=== PATIENT | female | born 1945 | race Caucasian/White ===

== ENCOUNTER 2021-03-26 11:55 | Outpatient (REF) | payer MEDICARE, SELFPAY ==
--- NOTE | ~2021-03-26 | XR_ITS ---
EXAMINATION: XR CHEST CLINICAL INFORMATION: Acute respiratory infection COMPARISON: None TECHNIQUE: 2 views of the chest were obtained. FINDINGS: The cardiac and mediastinal contours are normal. The lungs are clear. There is no pleural effusion or pneumothorax. There are degenerative changes of the spine. XR/XR chest 2V IMPRESSION: Unremarkable examination.
[2021-03-26 14:58] LABS: Influenza A PCR NEGATIVE (Negative); Influenza B PCR NEGATIVE (Negative); Resp Syncy Virus RNA Qual PCR NEGATIVE (Negative); SARS COV2 PCR INHOUSE NEGATIVE (Negative)
== END 2021-03-26 11:56 | disposition home or self-care (01) ==
LOC: HO.HMGCX 11:55
PROVIDERS: Physician Assistant Medical; PCP Internal Medicine; Visit Provider Physician Assistant
DX: Z20.822 Contact with and (suspected) exposure to COVID-19 (principal); J06.9 Acute upper respiratory infection, unspecified
CPT/HCPCS: 0241U; 36415; 71046

== ENCOUNTER 2021-04-14 11:43 | Outpatient (REF) | payer MEDICARE, SELFPAY ==
[2021-04-14 12:35] LABS: Influenza A PCR NEGATIVE (Negative); Influenza B PCR NEGATIVE (Negative); Resp Syncy Virus RNA Qual PCR NEGATIVE (Negative); SARS COV2 PCR INHOUSE POSITIVE (Negative)
== END 2021-04-14 11:44 | disposition home or self-care (01) ==
LOC: HO.LNP 11:43
PROVIDERS: Visit Provider Internal Medicine
DX: Z20.822 Contact with and (suspected) exposure to COVID-19 (principal); R43.9 Unspecified disturbances of smell and taste
CPT/HCPCS: 0241U

== ENCOUNTER 2021-09-11 16:44 | Outpatient (REF) | payer MEDICARE, SELFPAY ==
--- NOTE | ~2021-09-11 | XR_ITS ---
EXAMINATION: XR CHEST CLINICAL INFORMATION: Cough. COMPARISON: Chest x-ray 03/26/2021 TECHNIQUE: 2 views of the chest were obtained. FINDINGS: Lungs are clear. No pulmonary vascular congestion. There is no pleural effusion. The heart size is normal. The cardiac and mediastinal contours are normal. There are calcifications of the thoracic aorta. There are multilevel degenerative changes of dorsal spine. XR/XR chest 2V IMPRESSION: Unremarkable examination.
== END 2021-09-11 16:45 | disposition home or self-care (01) ==
LOC: HO.HMGCX 16:44
PROVIDERS: PCP Internal Medicine
DX: R05.9 Cough, unspecified (principal)
CPT/HCPCS: 71046

== ENCOUNTER 2021-11-24 12:50 | Outpatient (REF) | payer MEDICARE, SELFPAY ==
--- NOTE | 2021-11-24 14:23 | PFT_ITS ---
INDICATION: Asthma. SPIROMETRY: FEV1 to FVC of 62% with an FEV1 of 1.58 L, which is 73% predicted, FVC of 2.54 L, which is 88% predicted. There was a significant response to bronchodilators noted. The maximum voluntary ventilation 80% predicted to note, the small airways, [id number] was down to 40% predicted initially as well. LUNG VOLUMES: Total lung capacity 85% predicted with a residual volume of 95% predicted. DIFFUSING CAPACITY: DLCO 55% predicted. COMPARISONS: None to review. INTERPRETATION: There is an obstructive ventilatory defect consistent with moderate COPD. Although, the patient has a history of asthma, an evidence of small airways disease suggesting the possibility of asthma-COPD overlap syndrome. There was a significant response to bronchodilators noted. Maximum voluntary ventilation is within normal limits. Lung volumes also within normal limits. The patient does however have a moderate diffusion impairment. Therefore, emphysema and other parenchymal lung conditions should be considered. Correction for hemoglobin also will be warranted. Clinical correlation warranted. MD DAYTON Kwon/SANDRO / [phone]
== END 2021-11-24 12:51 | disposition home or self-care (01) ==
LOC: HO.RESP 12:50
PROVIDERS: PCP Internal Medicine; Visit Provider Internal Medicine
DX: J45.909 Unspecified asthma, uncomplicated (principal)
CPT/HCPCS: 94060; 94727; 94729

== ENCOUNTER 2021-11-25 08:01 | Outpatient (REF) | payer MEDICARE, SELFPAY ==
[2021-11-25 11:28] LABS: MANUAL DIFF FLAG NO
[2021-11-25 11:36] LABS: Basophils Absolute Auto 0.1 X10*3/uL (0.0-0.2); Basophils Percent Auto 1.4 % (0-2); Eosinophils Absolute Auto 0.5 X10*3/uL (0.0-0.4); Eosinophils Percent Auto 12.2 % (0-4); Hematocrit 40.3 % (37.0-47.0); Hemoglobin 13.2 g/dl (12.0-16.0); Imm Gran Abs Auto 0.01 X10*3/uL (0.00-0.03); Imm Gran Pct Auto 0.3 % (0.0-0.4); Lymphocytes Absolute Auto 1.2 X10*3/uL (1.2-4.9); Mean Corpuscular HGB Conc 32.8 g/dl (31.0-35.0); Mean Corpuscular Volume 91.6 fL (80.0-98.0); Mean Platelet Volume 12.2 fL (9.4-12.3); Monocytes Absolute Auto 0.3 X10*3/uL (0.1-1.2); Monocytes Percent Auto 8.9 % (2-11); Neutrophils Absolute Auto 1.7 x10*3/uL (2.0-8.3); Neutrophils Percent Auto 45.2 % (45-73); Platelet Count 125 X10*3/uL (160-400); Red Cell Distribution Width 13.5 % (11.0-16.0); White Blood Count 3.7 X10*3/uL (4.8-10.8)
[2021-11-25 11:55] LABS: Alanine Aminotransferase 16 U/L (0-31); Albumin Level 4.4 g/dL (3.5-5.0); Alkaline Phosphatase 56 U/L (39-117); Anion Gap 15 (12-20); Aspartate Amino Transferase 18 U/L (5-31); Bilirubin Total 0.6 mg/dL (0.0-1.0); Blood Urea Nitrogen 17 mg/dL (9-16); C Reactive Protein 0.18 mg/dL (< or = 0.50); Calcium 9.3 mg/dL (8.4-10.2); Carbon Dioxide 27 mmol/L (22-29); Chloride 105 mmol/L (96-108); Cholesterol 223 mg/dL; Estimated Glomerular Filt Rate > 60; Glucose Fasting 86 mg/dL (60-99); HDL Cholesterol 57 mg/dL; LDL Cholesterol Calculated 145 mg/dl; Potassium 4.8 mmol/L (3.3-5.1); Sodium 142 mmol/L (135-145); Total Protein 6.8 g/dL (6.5-8.0); Triglycerides 105 mg/dL
[2021-11-25 12:04] LABS: TSH reflex Free T4 1.03 uIU/mL (0.32-4.0); Vitamin D 25-OH Total 48.2 ng/mL (>30)
[2021-11-25 12:17] LABS: Folate 17.7 ng/mL (> or = 4.0); Vitamin B12 657 pg/mL (200-900)
== END 2021-11-25 08:02 | disposition home or self-care (01) ==
LOC: HO.HMGCLDS 08:01
PROVIDERS: PCP Internal Medicine; Visit Provider Internal Medicine
DX: I10 Essential (primary) hypertension (principal); E55.9 Vitamin D deficiency, unspecified
CPT/HCPCS: 36415; 80053; 80061; 82306; 82607; 82746; 84443; 85025; 86140

== ENCOUNTER 2021-12-06 11:18 | Outpatient (REF) | payer MEDICARE, SELFPAY ==
[2021-12-06 12:07] LABS: Leukocytes Stool Qualitative NEGATIVE (NEGATIVE)
[2021-12-06 13:07] LABS: Campylobacter Not Detected (Not Detect.); E. coli EAEC Not Detected (Not Detect.); E. coli EPEC Detected (Not Detect.); E. coli ETEC Not Detected (Not Detect.); E. coli STEC Not Detected (Not Detect.); Plesiomonas shigelloides Not Detected (Not Detect.); Salmonella Not Detected (Not Detect.); Vibrio Not Detected (Not Detect.); Vibrio Cholerae Not Detected (Not Detect.); Yersinia enterocolitica Not Detected (Not Detect.)
[2021-12-06 13:08] LABS: Adenovirus F 40/41 Not Detected (Not Detect.); Astrovirus Not Detected (Not Detect.); Cryptosporidium Not Detected (Not Detect.); Cyclospora cayetanensis Not Detected (Not Detect.); Entamoeba histolytica Not Detected (Not Detect.); Giardia lamblia Not Detected (Not Detect.); Norovirus GI/GII Not Detected (Not Detect.); Rotavirus A Not Detected (Not Detect.); Sapovirus Not Detected (Not Detect.); Shigella sp./EIEC Not Detected (Not Detect.)
== END 2021-12-06 11:19 | disposition home or self-care (01) ==
LOC: HO.LNP 11:18
PROVIDERS: Visit Provider Internal Medicine
DX: R19.7 Diarrhea, unspecified (principal)
CPT/HCPCS: 87507; 89055

== ENCOUNTER 2022-03-16 08:02 | Outpatient (REF) | payer MEDICARE, SELFPAY ==
[2022-03-16 11:45] LABS: Baso%MD 1.5 %; Eos%MD 10.8 %; Hematocrit 39.9 % (37.0-47.0); Hemoglobin 12.8 g/dl (12.0-16.0); IG%MD 0.3 %; Lymph%MD 34.7 %; Mean Corpuscular HGB Conc 32.1 g/dl (31.0-35.0); Mean Corpuscular Hemoglobin 28.9 pg (27.0-33.0); Mean Corpuscular Volume 90.1 fL (80.0-98.0); Mono%MD 11.1 %; Neut%MD 41.6 %; Platelet Count 139 X10*3/uL (160-400); Red Blood Count 4.43 X10*6/uL (4.20-5.50); Red Cell Distribution Width 13.5 % (11.0-16.0); White Blood Count 3.9 X10*3/uL (4.8-10.8)
[2022-03-16 13:21] LABS: Band Neutrophils Percent 3 % (3-5); Basophils Abs Manual 0.1 X10*3/uL (0.0-0.2); Basophils Percent Manual 2 % (0-2); Eosinophils Absolute Manual 0.4 X10*3/uL (0.0-0.4); Eosinophils Percent Manual 10 % (0-4); Lymphocytes Absolute Manual 1.1 X10*3/uL (1.2-4.9); Lymphocytes Percent Manual 29 % (20-40); Monocytes Absolute Manual 0.2 X10*3/uL (0.1-1.2); Monocytes Percent Manual 5 % (2-11); Neutrophils Absolute Manual 2.1 X10*3/uL (2.0-8.3); Neutrophils Percent Manual 51 % (45-73)
[2022-03-16 13:22] LABS: Platelet Estimate NORMAL (NORMAL); Platelet Morphology Comment NORMAL; RBC Morphology NORMAL
== END 2022-03-16 08:03 | disposition home or self-care (01) ==
LOC: HO.HMGCLDS 08:02
PROVIDERS: PCP Internal Medicine; Visit Provider Internal Medicine
DX: D69.6 Thrombocytopenia, unspecified (principal)
CPT/HCPCS: 36415; 85007; 85027

== ENCOUNTER 2022-09-22 08:06 | Outpatient (REF) | payer MEDICARE, SELFPAY ==
[2022-09-22 11:14] LABS: MANUAL DIFF FLAG NO
[2022-09-22 11:35] LABS: Basophils Absolute Auto 0.1 X10*3/uL (0.0-0.2); Basophils Percent Auto 1.2 % (0-2); Eosinophils Absolute Auto 0.5 X10*3/uL (0.0-0.4); Eosinophils Percent Auto 11.2 % (0-4); Hematocrit 40.7 % (37.0-47.0); Hemoglobin 13.2 g/dl (12.0-16.0); Imm Gran Abs Auto 0.01 X10*3/uL (0.00-0.03); Imm Gran Pct Auto 0.2 % (0.0-0.4); Lymphocytes Absolute Auto 1.4 X10*3/uL (1.2-4.9); Lymphocytes Percent Auto 31.9 % (20-40); Mean Corpuscular HGB Conc 32.4 g/dl (31.0-35.0); Mean Corpuscular Hemoglobin 29.2 pg (27.0-33.0); Mean Platelet Volume 11.5 fL (9.4-12.3); Monocytes Absolute Auto 0.3 X10*3/uL (0.1-1.2); Neutrophils Percent Auto 47.5 % (45-73); Platelet Count 139 X10*3/uL (160-400); Red Blood Count 4.52 X10*6/uL (4.20-5.50); Red Cell Distribution Width 13.6 % (11.0-16.0); White Blood Count 4.3 X10*3/uL (4.8-10.8)
[2022-09-22 12:11] LABS: Alanine Aminotransferase 16 U/L (0-31); Albumin Level 4.4 g/dL (3.5-5.0); Alkaline Phosphatase 61 U/L (39-117); Anion Gap 10 (12-20); Aspartate Amino Transferase 18 U/L (5-31); Bilirubin Total 0.6 mg/dL (0.0-1.0); Blood Urea Nitrogen 17 mg/dL (9-16); Calcium 9.8 mg/dL (8.4-10.2); Carbon Dioxide 30 mmol/L (22-29); Chloride 107 mmol/L (96-108); Cholesterol 250 mg/dL; Estimated Glomerular Filt Rate > 60; Glucose Fasting 92 mg/dL (60-99); HDL Cholesterol 57 mg/dL; LDL Cholesterol Calculated 165 mg/dl; Potassium 4.6 mmol/L (3.3-5.1); Sodium 142 mmol/L (135-145); Total Protein 6.9 g/dL (6.5-8.0); Triglycerides 142 mg/dL
[2022-09-22 12:26] LABS: TSH reflex Free T4 1.85 uIU/mL (0.32-4.0)
== END 2022-09-22 08:07 | disposition home or self-care (01) ==
LOC: HO.HMGCLDS 08:06
PROVIDERS: PCP Internal Medicine; Visit Provider Internal Medicine
DX: I10 Essential (primary) hypertension (principal); E78.5 Hyperlipidemia, unspecified
CPT/HCPCS: 36415; 80053; 80061; 84443; 85025

== ENCOUNTER 2023-01-21 13:49 | Outpatient (AMB) | payer MEDICARE, SELFPAY ==
--- NOTE | 2023-01-21 13:53 | MHC.PC.OV ---
Vital Signs 01/21/23 13:56 Height 5 ft 5 in Weight 164 lb BMI 27.3 BP 144/74 H Blood Pressure Location Rt brachial Position Sitting Pulse 87 Pulse Source Pulse Oximeter Pulse Oximetry (%) 96 Oxygen Delivery Method Room Air Intake Visit Reasons: Cough/Congestion 1 week Intake Note: Pt is here today for a sick visit. Pt c/o cough congestion for a week now. Allergies meperidine [From Demerol] Allergy (Mild, Verified 01/21/23 13:58) hives paper tape Allergy (Mild, Uncoded 01/21/23 13:58) Redness of Skin Medication List - Last Reconciled 01/21/23 by Saadia Trotter MD albuterol sulfate 90 mcg/actuation (ProAir HFA) 2 puffs inhalation Q6-8H PRN ascorbate calcium (vitamin C) 500 mg PO DAILY ascorbic acid (vitamin C) ER 500 mg PO DAILY calcium carbonate-vitamin D3 600 mg-10 mcg (400 unit) (Calcium with Vitamin D) 1 tab PO DAILY famotidine 40 mg PO DAILY xtywsprhjei-jxadhhcub-ozdzpvrc 100-62.5-25 mcg (Trelegy Ellipta) 1 inh inhalation DAILY losartan 12.5 mg (1/2 x 25 mg) PO DAILY magnesium chloride PO Tobacco use date assessed: 01/21/23 Fall risk assessment: No Falls in past year Last assessed Fall Risk: 01/21/23 Dental Screening Dental Screen Date: 01/21/23 Did you have a dental visit in the last 12 months?: Yes Did you have a dental problem in the last 6 months where you did not have access to dental care?: No Was dental information given to patient?: Patient has dentist HPI Cough/Congestion 1 week HPI Details Pt presents complaining of sinus congestion postnasal drip productive cough with thick sputum chest tightness. She has been using albuterol inhaler without relief PFSH Medical History (Updated 09/28/22 @ 08:53 by Saadia Trotter MD) Vitamin D deficiency Osteopenia HTN (hypertension) Asthma Rectal prolapse Surgical History (Updated 09/28/22 @ 08:52 by Saadia Trotter MD) Hx of tubal ligation Hx of tonsillectomy Hx of mastectomy Hx of breast reconstruction Family History Mother No problems noted. Father Throat cancer Lung cancer Prostate cancer Social History Housing: House Patient Tobacco Use Status: Former Tobacco user e-Cigarette/Vaping Use: Never Used Current occupational status: retired Cognitive needs: No Hearing needs: No Vision needs: Yes Questionnaire Thrive Questionnaire Date Thrive assessed: 09/28/22 MARCELLO-7 AMB Questionnaire MARCELLO-7 Date MARCELLO - 7 assessed: 09/28/22 Source: Developed by Drs. Eleazar Gutierrez, Hanna Kevin, Chris Bill and colleagues, with an educational brian from [employer]. Review of Systems Const All systems reviewed & are unremarkable except as noted in HPI and below Reports no additional complaints Eyes Reports no additional complaints ENT Reports no additional complaints Card Reports no additional complaints Resp Reports no additional complaints GI Reports no additional complaints Reports no additional complaints Physical exam (Primary Care) Vital Signs: Last Vital Signs Pulse 87 01/21/23 13:56 BP 144/74 H 01/21/23 13:56 Pulse Ox 96 01/21/23 13:56 Oxygen Delivery Method Room Air 01/21/23 13:56 BMI result Body Mass Index 27.3 Tobacco/Smoking Status: Tobacco use Status Tobacco use date assessed 01/21/23 01/21/23 14:02 Patient Tobacco Use Status Former Tobacco user 01/21/23 14:02 e-Cigarette/Vaping Use Never Used 01/21/23 13:54 Thrive Assessment: Date of Thrive Assessment Date Thrive assessed 09/28/22 01/21/23 13:54 Const General: no acute distress [facility] General nose exam: Normal external nose present Mouth: Normal oral and palatal mucosa present Throat: Yes posterior oropharynx abnormal and Yes postnasal drainage Eyes General: appearance normal, both eyes and all related structures Neck Neck: Yes no lymphadenopathy and Yes supple Resp Effort & Inspection: normal respiratory effort Auscultation: rhonchi, wheezes and diminished lung sounds Cardio Rhythm: regular rhythm Heart sounds: S1 normal heart sound present and S2 normal heart sound present Assessment and Plan Assessment & Plan (1) HTN (hypertension): Code(s): I10 - Essential (primary) hypertension Plan: Continue medications (2) Hyperlipidemia: Comment: diet controlled, pt declined statins Code(s): E78.5 - Hyperlipidemia, unspecified (3) COPD (chronic obstructive pulmonary disease): Code(s): J44.9 - Chronic obstructive pulmonary disease, unspecified Plan: Continue Trelegy, Z-Eddi and prednisone taper are prescribed and supportive care discussed with the patient Orders: Orders Complete Blood Count Auto Diff 2 Months E78.5 - Hyperlipidemia, unspecified, I10 - Essential (primary) hypertension, J44.9 - Chronic obstructive pulmonary disease, unspecified Comprehensive [place]. Panel Fast 2 Months E78.5 - Hyperlipidemia, unspecified, I10 - Essential (primary) hypertension, J44.9 - Chronic obstructive pulmonary disease, unspecified Lipid Panel 2 Months E78.5 - Hyperlipidemia, unspecified, I10 - Essential (primary) hypertension, J44.9 - Chronic obstructive pulmonary disease, unspecified Medications: New azithromycin For 250 mg dose pack: take 500 mg today (day 1), then 250 mg for 4 days (days 2-5) PO 6 tabs 0RF prednisone 4 tabl qd for 3 days, then 3 tabl qd for 3 days, then 2 tab qd for 3 days, then 1 qd for 3 days 10 mg PO DAILY 30 tabs 0RF Coding Level of Care Code Est Pt Level 3 (21916) Diagnoses HTN (hypertension) I10 Hyperlipidemia E78.5 COPD (chronic obstructive pulmonary disease) J44.9
[2023-01-21 13:56] VITALS: BP 144/74; PULSE 87; O2SAT 96; BMI 27.3
== END 2023-01-21 14:19 | disposition home or self-care (01) ==
PROVIDERS: PCP Internal Medicine; Visit Provider Internal Medicine
DX: I10 Essential (primary) hypertension (principal); E78.5 Hyperlipidemia, unspecified; J44.9 Chronic obstructive pulmonary disease, unspecified
CPT/HCPCS: 99213

== ENCOUNTER 2023-03-19 08:02 | Outpatient (REF) | payer MEDICARE, SELFPAY ==
[2023-03-19 11:26] LABS: MANUAL DIFF FLAG NO
[2023-03-19 11:38] LABS: Basophils Percent Auto 0.7 % (0-2); Eosinophils Absolute Auto 0.6 X10*3/uL (0.0-0.4); Eosinophils Percent Auto 11.8 % (0-4); Hematocrit 41.3 % (37.0-47.0); Hemoglobin 13.2 g/dl (12.0-16.0); Imm Gran Abs Auto 0.02 X10*3/uL (0.00-0.03); Imm Gran Pct Auto 0.4 % (0.0-0.4); Lymphocytes Absolute Auto 1.1 X10*3/uL (1.2-4.9); Lymphocytes Percent Auto 19.4 % (20-40); Mean Corpuscular Hemoglobin 28.7 pg (27.0-33.0); Mean Corpuscular Volume 89.8 fL (80.0-98.0); Mean Platelet Volume 11.9 fL (9.4-12.3); Monocytes Absolute Auto 0.4 X10*3/uL (0.1-1.2); Monocytes Percent Auto 7.2 % (2-11); Neutrophils Absolute Auto 3.3 x10*3/uL (2.0-8.3); Neutrophils Percent Auto 60.5 % (45-73); Platelet Count 137 X10*3/uL (160-400); Red Cell Distribution Width 14.1 % (11.0-16.0); White Blood Count 5.4 X10*3/uL (4.8-10.8)
[2023-03-19 12:14] LABS: Alanine Aminotransferase 15 U/L (0-31); Albumin Level 4.3 g/dL (3.5-5.0); Alkaline Phosphatase 52 U/L (39-117); Anion Gap 12 (12-20); Aspartate Amino Transferase 19 U/L (5-31); Bilirubin Total 0.4 mg/dL (0.0-1.0); Blood Urea Nitrogen 19 mg/dL (9-16); Calcium 9.8 mg/dL (8.4-10.2); Carbon Dioxide 28 mmol/L (22-29); Chloride 109 mmol/L (96-108); Cholesterol 219 mg/dL (<200); Estimated Glomerular Filt Rate > 60; Glucose Fasting 95 mg/dL (60-99); HDL Cholesterol 54 mg/dL (>40); LDL Cholesterol Calculated 133 mg/dL (<100); Potassium 4.6 mmol/L (3.3-5.1); Sodium 144 mmol/L (135-145); Triglycerides 161 mg/dL (<150)
== END 2023-03-19 08:03 | disposition home or self-care (01) ==
LOC: HO.HMGCLDS 08:02
PROVIDERS: PCP Internal Medicine; Visit Provider Internal Medicine
DX: I10 Essential (primary) hypertension (principal); E78.5 Hyperlipidemia, unspecified; J44.9 Chronic obstructive pulmonary disease, unspecified
CPT/HCPCS: 36415; 80053; 80061; 85025

== ENCOUNTER 2023-03-30 09:41 | Outpatient (AMB) | payer MEDICARE, SELFPAY ==
--- NOTE | 2023-03-30 10:05 | MHC.PC.OV ---
Vital Signs 03/30/23 10:06 Height 5 ft 5 in Weight 165 lb BMI 27.5 BP 120/62 Blood Pressure Location Rt brachial Position Sitting Pulse 69 Pulse Source Pulse Oximeter Pulse Oximetry (%) 98 Oxygen Delivery Method Room Air Intake Visit Reasons: 6 Month follow up HTN Intake Note: Pt is here today for 6 months follow up visit on HTN and labs. Allergies meperidine [From Demerol] Allergy (Mild, Verified 03/30/23 10:08) hives paper tape Allergy (Mild, Uncoded 03/30/23 10:08) Redness of Skin Medication List - Last Reconciled 03/30/23 by Saadia Trotter MD albuterol sulfate 90 mcg/actuation (ProAir HFA) 2 puffs inhalation Q6-8H PRN ascorbate calcium (vitamin C) 500 mg PO DAILY calcium carbonate-vitamin D3 600 mg-10 mcg (400 unit) (Calcium with Vitamin D) 1 tab PO DAILY famotidine 40 mg PO DAILY llyrxjoctho-aajasijqy-grudvxyc 100-62.5-25 mcg (Trelegy Ellipta) 1 inh inhalation DAILY losartan 12.5 mg (1/2 x 25 mg) PO DAILY magnesium chloride PO Tobacco use date assessed: 03/30/23 HPI 6 Month follow up HTN HPI Details Patient presents for the follow-up of COPD hypertension and diet-controlled hyperlipidemia stable on current medications. [facility] Medical History (Updated 03/30/23 @ 10:55 by Saadia Trotter MD) Vitamin D deficiency Osteopenia HTN (hypertension) Asthma Rectal prolapse Surgical History (Updated 09/28/22 @ 08:52 by Saadia Trotter MD) Hx of tubal ligation Hx of tonsillectomy Hx of mastectomy Hx of breast reconstruction Family History Mother No problems noted. Father Throat cancer Lung cancer Prostate cancer Social History Housing: House Patient Tobacco Use Status: Former Tobacco user e-Cigarette/Vaping Use: Never Used Current occupational status: retired Cognitive needs: No Hearing needs: No Vision needs: Yes Questionnaire Thrive Questionnaire Date Thrive assessed: 09/28/22 MARCELLO-7 AMB Questionnaire MARCELLO-7 Date MARCELLO - 7 assessed: 09/28/22 Source: Developed by Drs. Eleazar Gutierrez, Hanna Kevin, Chris Bill and colleagues, with an educational brian from [employer]. Review of Systems Const All systems reviewed & are unremarkable except as noted in HPI and below Reports no additional complaints Eyes Reports no additional complaints ENT Reports no additional complaints Card Reports no additional complaints Resp Reports no additional complaints GI Reports no additional complaints Physical exam (Primary Care) Vital Signs: Last Vital Signs Pulse 69 03/30/23 10:06 BP 120/62 03/30/23 10:06 Pulse Ox 98 03/30/23 10:06 Oxygen Delivery Method Room Air 03/30/23 10:06 BMI result Body Mass Index 27.5 Tobacco/Smoking Status: Tobacco use Status Tobacco use date assessed 03/30/23 03/30/23 10:11 Patient Tobacco Use Status Former Tobacco user 03/30/23 10:11 e-Cigarette/Vaping Use Never Used 03/30/23 10:11 Thrive Assessment: Date of Thrive Assessment Date Thrive assessed 09/28/22 03/30/23 10:11 Const General: no acute distress HENMT Face and sinus: Yes normal facial exam Neck Neck: Yes supple Resp Effort & Inspection: normal respiratory effort Auscultation: clear to auscultation bilaterally Cardio Rhythm: regular rhythm Heart sounds: S1 normal heart sound present and S2 normal heart sound present Assessment and Plan Assessment & Plan (1) COPD (chronic obstructive pulmonary disease): Code(s): J44.9 - Chronic obstructive pulmonary disease, unspecified Plan: cont Trelegy (2) Hyperlipidemia: Comment: diet controlled, pt declined statins Code(s): E78.5 - Hyperlipidemia, unspecified (3) Vitamin D deficiency: Code(s): E55.9 - Vitamin D deficiency, unspecified (4) Thrombocytopenia: Comment: post chemo,monitor Code(s): D69.6 - Thrombocytopenia, unspecified (5) HTN (hypertension): Code(s): I10 - Essential (primary) hypertension Plan: cont losartan Orders: Orders Lipid Panel 6 Months D69.6 - Thrombocytopenia, unspecified, E55.9 - Vitamin D deficiency, unspecified, E78.5 - Hyperlipidemia, unspecified, I10 - Essential (primary) hypertension, J44.9 - Chronic obstructive pulmonary disease, unspecified TSH reflex Free T4 6 Months D69.6 - Thrombocytopenia, unspecified, E55.9 - Vitamin D deficiency, unspecified, E78.5 - Hyperlipidemia, unspecified, I10 - Essential (primary) hypertension, J44.9 - Chronic obstructive pulmonary disease, unspecified Vitamin B12 and Folate 6 Months D69.6 - Thrombocytopenia, unspecified, E55.9 - Vitamin D deficiency, unspecified, E78.5 - Hyperlipidemia, unspecified, I10 - Essential (primary) hypertension, J44.9 - Chronic obstructive pulmonary disease, unspecified Comprehensive [place]. Panel Fast 6 Months D69.6 - Thrombocytopenia, unspecified, E55.9 - Vitamin D deficiency, unspecified, E78.5 - Hyperlipidemia, unspecified, I10 - Essential (primary) hypertension, J44.9 - Chronic obstructive pulmonary disease, unspecified Complete Blood Count Auto Diff 6 Months D69.6 - Thrombocytopenia, unspecified, E55.9 - Vitamin D deficiency, unspecified, E78.5 - Hyperlipidemia, unspecified, I10 - Essential (primary) hypertension, J44.9 - Chronic obstructive pulmonary disease, unspecified Vitamin D 25-OH Total 6 Months D69.6 - Thrombocytopenia, unspecified, E55.9 - Vitamin D deficiency, unspecified, E78.5 - Hyperlipidemia, unspecified, I10 - Essential (primary) hypertension, J44.9 - Chronic obstructive pulmonary disease, unspecified Coding Level of Care Code Est Pt Level 4 (17107) Diagnoses COPD (chronic obstructive pulmonary disease) J44.9 Hyperlipidemia E78.5 Vitamin D deficiency E55.9 Thrombocytopenia D69.6 HTN (hypertension) I10
[2023-03-30 10:06] VITALS: BP 120/62; PULSE 69; O2SAT 98; BMI 27.5
== END 2023-03-30 10:57 | disposition home or self-care (01) ==
LOC: HO.HMGC 09:41
PROVIDERS: PCP Internal Medicine; Visit Provider Internal Medicine
DX: J44.9 Chronic obstructive pulmonary disease, unspecified (principal); E78.5 Hyperlipidemia, unspecified; E55.9 Vitamin D deficiency, unspecified; D69.6 Thrombocytopenia, unspecified; I10 Essential (primary) hypertension
CPT/HCPCS: 99214

== ENCOUNTER 2023-05-14 14:55 | Outpatient (AMB) | payer MEDICARE, SELFPAY ==
--- NOTE | 2023-05-14 14:57 | MHC.OFFWIV ---
Intake Vital Signs 05/14/23 14:59 Height 5 ft 5 in Weight 78.018 kg BMI 28.6 BP 138/60 Pulse 77 Pulse Source Pulse Oximeter Temp 97.7 F Temp Source Oral Pulse Oximetry (%) 97 Oxygen Delivery Method Room Air Intake Visit Reasons: Ep Cough (masked) Intake Note: Pt is here today c/o cough more than 2wks Patient Tobacco Use Status: Former Tobacco user Allergies meperidine [From Demerol] Allergy (Mild, Verified 05/14/23 14:57) hives paper tape Allergy (Mild, Uncoded 05/14/23 14:57) Redness of Skin Do you need a note to return to daycare/school/sports/work: No HPI HPI Comments History of Present Illness Details 70-year-old female history of osteopenia, asthma, hypertension presenting with cough that has been ongoing for the past 2 weeks. Dry cough that is very uncomfortable particularly at night. Denies fevers, chills, chest pain, shortness of breath, nausea, vomiting, headache, vision changes, dizziness weakness. No recent sick contacts. No recent travel. Physical exam benign. Vital signs are stable. Saturating 97% on room air without tachycardia. History and physical exam concerning for bronchitis versus asthma versus viral illness vs copd exacerbation. Unlikely pneumonia, PE, ACS, acute respiratory distress. Plan will discharge on antibiotics, prednisone and steroids. Educated patient on diagnosis and treatment plan, answered all question, patient verbalizes understanding. At this time patient will be discharged home, advised to return with new or worsening symptoms. Educated on worrisome signs and symptoms and when to return. At this time I feel comfortable discharge home. [facility] Medical History Vitamin D deficiency Osteopenia HTN (hypertension) Asthma Rectal prolapse Surgical History Hx of tubal ligation Hx of tonsillectomy Hx of mastectomy Hx of breast reconstruction Family History Mother No problems noted. Father Throat cancer Lung cancer Prostate cancer Social History Housing: House Patient Tobacco Use Status: Former Tobacco user e-Cigarette/Vaping Use: Never Used Current occupational status: retired Cognitive needs: No Hearing needs: No Vision needs: Yes Review of Systems Const All systems reviewed & are unremarkable except as noted in HPI and below Physical Exam Vital Signs: Last Vital Signs Temp 97.7 F 05/14/23 14:59 Pulse 77 05/14/23 14:59 BP 138/60 05/14/23 14:59 Pulse Ox 97 05/14/23 14:59 Oxygen Delivery Method Room Air 05/14/23 14:59 BMI result Body Mass Index 28.6 vss Appearance: Alert.? Oriented X3.? No acute distress.? Head: Normocephalic, atraumatic, no step-offs or deformities Eyes: Pupils equal, round and reactive to light.? CVS: Normal heart rate and rhythm.? Pulses normal.? Respiratory: No respiratory distress.? Breath sounds normal.? Abdomen: Soft and nontender.? Skin: Skin warm and dry.? Normal skin color.? Normal skin turgor.? Extremities: No lower extremity edema.? No calf ttp. 5/5 strength to bilateral upper and lower extremities Neuro: Oriented X 3.? No motor deficit.? No sensory deficit. CN 2-12 intact Assessment & Plan Assessment & Plan (1) Acute bronchitis: Code(s): J20.9 - Acute bronchitis, unspecified Plan Take your medications as prescribed. If you were prescribed antibiotics today, it is important that you take your medication to their entirety, do not skip any doses, do not finish them early. Follow-up with your primary care provider this week. Return to the emergency department with new or worsening symptoms. Such as fevers, chills, chest pain, shortness of breath, nausea, vomiting, dizziness, headache, vision changes, lethargy In case of emergency call 911 Medications: New prednisone 20 mg PO DAILY 5 tabs 0RF 5 days doxycycline hyclate 100 mg PO BID 14 caps 0RF 7 days benzonatate 100 mg PO BID PRN 14 caps 0RF cough albuterol sulfate 90 mcg/actuation 2 puffs inhalation Q6H PRN 6.7 grams 0RF shortness of breath or wheezing Coding Level of Care Code Est Pt Level 3 (72969) Diagnoses Acute bronchitis J20.9
[2023-05-14 14:59] VITALS: BP 138/60; PULSE 77; TEMP 36.5; O2SAT 97; BMI 28.6
== END 2023-05-14 15:29 | disposition home or self-care (01) ==
PROVIDERS: PCP Internal Medicine; Visit Provider Physician Assistant
DX: J20.9 Acute bronchitis, unspecified (principal)
CPT/HCPCS: 99213

== ENCOUNTER 2023-05-28 16:17 | Outpatient (AMB) | payer MEDICARE, SELFPAY ==
[2023-05-28 16:09] VITALS: BP 134/60; PULSE 87; TEMP 36.6; O2SAT 96; BMI 28.3
--- NOTE | 2023-05-28 16:09 | AM.OFFWIN_ITS ---
Intake Vital Signs 05/28/23 16:09 Height 5 ft 5 in Weight 170 lb 2 oz BMI 28.3 BP 134/60 Blood Pressure Location Rt brachial Position Sitting Pulse 87 Pulse Source Pulse Oximeter Temp 98 F Temp Source Oral Pulse Oximetry (%) 96 Oxygen Delivery Method Simple Mask Intake Visit Reasons: EP Deep cough since 05/14/23 Intake Note: Pt is here today for cough, pt states occurred for few weeks Patient Tobacco Use Status: Former Tobacco user Allergies meperidine [From Demerol] Allergy (Mild, Verified 05/28/23 16:09) hives paper tape Allergy (Mild, Uncoded 05/14/23 14:57) Redness of Skin Do you need a note to return to daycare/school/sports/work: No HPI HPI Comments History of Present Illness Details 78 y/o female patient who presents to [facility] in clinic with c/o persistent cough. She was seen and evaluated at [facility] 2 weeks ago and prescribed Prednisone ,Doxy, and Benzonate. Pt never took Doxycycline due to severe Nausea. She has been using her prescribed inhalers with cough relief. She has been using OTC cough medicine with no much relief. Denies fevers, or chills. Denies vomiting but reports nausea. [facility] Medical History Vitamin D deficiency Osteopenia HTN (hypertension) Asthma Rectal prolapse Surgical History Hx of tubal ligation Hx of tonsillectomy Hx of mastectomy Hx of breast reconstruction Family History Mother No problems noted. Father Throat cancer Lung cancer Prostate cancer Social History Housing: House Patient Tobacco Use Status: Former Tobacco user e-Cigarette/Vaping Use: Never Used Current occupational status: retired Cognitive needs: No Hearing needs: No Vision needs: Yes Review of Systems Const All systems reviewed & are unremarkable except as noted in HPI and below Physical Exam Vital Signs: Last Vital Signs Temp 98 F 05/28/23 16:09 Pulse 87 05/28/23 16:09 BP 134/60 05/28/23 16:09 Pulse Ox 96 05/28/23 16:09 Oxygen Delivery Method Simple Mask 05/28/23 16:09 BMI result Body Mass Index 28.3 Const General: no acute distress Nutritional Appearance: overweight Orientation/consciousness: patient oriented x3 HEENT Head: Yes normocephalic Ears: external ears normal and TM's normal bilaterally General nose exam: Normal nasal mucous membranes and turbinates present Face and sinus: Yes sinuses nontender Mouth: moist mucous membranes Throat: Yes posterior oropharynx normal Resp Effort & Inspection: normal respiratory effort and Actively coughing Auscultation: no crackles, no rales, no rhonchi and wheezes scattered wheezes Cardio Rate: regular rate Rhythm: regular rhythm Neuro General: patient oriented x3 Assessment & Plan Assessment & Plan (1) COPD with exacerbation: Code(s): J44.1 - Chronic obstructive pulmonary disease with (acute) exacerbation Plan: - Continue with prescribed inhalers. - D/C Doxycycline - Start taking Augmentin and Z-pack - OTC cough remedies (2) Cough in adult: Code(s): R05.9 - Cough, unspecified Plan: - Warm fluids with honey - Humidifier Medications: New azithromycin 500 mg PO DAILY 3 days 3 tabs 0RF J44.1 - Chronic obstructive pulmonary disease with (acute) exacerbation amoxicillin-pot clavulanate 875-125 mg 1 tab PO BID 5 days 10 tabs 0RF J44.1 - Chronic obstructive pulmonary disease with (acute) exacerbation guaifenesin 200 mg (10 mL) PO Q4H PRN 473 mL 0RF cough R05.9 - Cough, unspecified Coding Level of Care Code Est Pt Level 3 (24930) Diagnoses COPD with exacerbation J44.1 Cough in adult R05.9 Time Spent (min) 15
== END 2023-05-28 16:37 | disposition home or self-care (01) ==
PROVIDERS: PCP Internal Medicine; Visit Provider Nurse Practitioner Family
DX: J44.1 Chronic obstructive pulmonary disease with (acute) exacerbation (principal); R05.9 Cough, unspecified
CPT/HCPCS: 99214

== ENCOUNTER 2023-10-12 08:08 | Outpatient (REF) | payer MEDICARE, SELFPAY ==
[2023-10-12 11:40] LABS: MANUAL DIFF FLAG NO
[2023-10-12 11:53] LABS: Basophils Absolute Auto 0.1 X10*3/uL (0.0-0.2); Basophils Percent Auto 1.3 % (0-2); Eosinophils Absolute Auto 0.4 X10*3/uL (0.0-0.4); Eosinophils Percent Auto 10.4 % (0-4); Hematocrit 37.9 % (37.0-47.0); Hemoglobin 12.6 g/dl (12.0-16.0); Imm Gran Abs Auto 0.01 X10*3/uL (0.00-0.03); Imm Gran Pct Auto 0.3 % (0.0-0.4); Lymphocytes Absolute Auto 1.1 X10*3/uL (1.2-4.9); Lymphocytes Percent Auto 26.7 % (20-40); Mean Corpuscular HGB Conc 33.2 g/dl (31.0-35.0); Mean Corpuscular Hemoglobin 30.1 pg (27.0-33.0); Mean Corpuscular Volume 90.7 fL (80.0-98.0); Mean Platelet Volume 12.1 fL (9.4-12.3); Monocytes Absolute Auto 0.5 X10*3/uL (0.1-1.2); Monocytes Percent Auto 11.5 % (2-11); Neutrophils Percent Auto 49.8 % (45-73); Platelet Count 125 X10*3/uL (160-400); Red Blood Count 4.18 X10*6/uL (4.20-5.50); Red Cell Distribution Width 13.7 % (11.0-16.0); White Blood Count 3.9 X10*3/uL (4.8-10.8)
[2023-10-12 12:16] LABS: Alanine Aminotransferase 16 U/L (0-31); Albumin Level 4.1 g/dL (3.5-5.0); Alkaline Phosphatase 57 U/L (39-117); Anion Gap 12 (12-20); Aspartate Amino Transferase 20 U/L (5-31); Bilirubin Total 0.3 mg/dL (0.0-1.0); Blood Urea Nitrogen 17 mg/dL (9-16); Calcium 9.1 mg/dL (8.4-10.2); Carbon Dioxide 26 mmol/L (22-29); Chloride 108 mmol/L (96-108); Cholesterol 196 mg/dL (<200); Estimated Glomerular Filt Rate > 60; Glucose Fasting 88 mg/dL (60-99); HDL Cholesterol 51 mg/dL (>40); LDL Cholesterol Calculated 132 mg/dL (<100); Potassium 4.5 mmol/L (3.3-5.1); Sodium 141 mmol/L (135-145); Total Protein 6.6 g/dL (6.5-8.0); Triglycerides 69 mg/dL (<150)
[2023-10-12 12:34] LABS: Folate 9.2 ng/mL (> or = 4.0); Vitamin B12 452 pg/mL (200-900)
[2023-10-12 12:40] LABS: TSH reflex Free T4 1.07 uIU/mL (0.32-4.0); Vitamin D 25-OH Total 48.9 ng/mL (>30)
== END 2023-10-12 08:09 | disposition home or self-care (01) ==
LOC: HO.HMGCLDS 08:08
PROVIDERS: PCP Internal Medicine; Visit Provider Internal Medicine
DX: I10 Essential (primary) hypertension (principal); J44.9 Chronic obstructive pulmonary disease, unspecified; E78.5 Hyperlipidemia, unspecified; E55.9 Vitamin D deficiency, unspecified; D69.6 Thrombocytopenia, unspecified
CPT/HCPCS: 36415; 80053; 80061; 82306; 82607; 82746; 84443; 85025

== ENCOUNTER 2023-10-27 11:46 | Outpatient (AMB) | payer MEDICARE, SELFPAY ==
[2023-10-27 12:04] VITALS: BP 122/70; PULSE 63; O2SAT 96; BMI 28.0
--- NOTE | 2023-10-27 12:04 | MHC.PC.OV ---
Vital Signs 10/27/23 12:04 Height 5 ft 5 in Weight 168 lb BMI 28.0 BP 122/70 Blood Pressure Location Rt brachial Position Sitting Pulse 63 Pulse Source Pulse Oximeter Pulse Oximetry (%) 96 Oxygen Delivery Method Room Air Intake Visit Reasons: Annual Intake Note: Pt is here today for PE. Allergies meperidine [From Demerol] Allergy (Mild, Verified 05/28/23 16:09) hives paper tape Allergy (Mild, Uncoded 05/14/23 14:57) Redness of Skin Medication List - Last Reconciled 10/27/23 by Saadia Trotter MD albuterol sulfate 90 mcg/actuation (ProAir HFA) 2 puffs inhalation Q6-8H PRN albuterol sulfate 90 mcg/actuation 2 puffs inhalation Q6H PRN ascorbate calcium (vitamin C) 500 mg PO DAILY calcium carbonate-vitamin D3 600 mg-10 mcg (400 unit) (Calcium with Vitamin D) 1 tab PO DAILY famotidine 40 mg PO DAILY vlamsnyyyxd-uxatfkpri-vttrukez 100-62.5-25 mcg (Trelegy Ellipta) 1 ea inhalation DAILY losartan 12.5 mg (1/2 x 25 mg) PO DAILY magnesium chloride PO montelukast 10 mg PO DAILY Tobacco use date assessed: 10/27/23 Fall risk assessment: No Falls in past year Last assessed Fall Risk: 10/27/23 Dental Screening Dental Screen Date: 10/27/23 Did you have a dental visit in the last 12 months?: Yes Did you have a dental problem in the last 6 months where you did not have access to dental care?: No Was dental information given to patient?: Patient has dentist HPI Annual HPI Details Pt presents for PE. PFSH Medical History Vitamin D deficiency Osteopenia HTN (hypertension) Asthma Rectal prolapse Surgical History Hx of tubal ligation Hx of tonsillectomy Hx of mastectomy Hx of breast reconstruction Family History Mother No problems noted. Father Throat cancer Lung cancer Prostate cancer Social History Housing: House Patient Tobacco Use Status: Never used Tobacco e-Cigarette/Vaping Use: Never Used service: No Current occupational status: retired Cognitive needs: No Hearing needs: No Vision needs: Yes Questionnaire PHQ-9 Over the last 2 weeks, how often have you been bothered by any of the following problems? 1. Little interest or pleasure in doing things: not at all 2. Feeling down, depressed, or hopeless: not at all 3. Trouble falling or staying asleep, or sleeping too much: not at all 4. Feeling tired or having little energy: not at all 5. Poor appetite or overeating: not at all 6. Feeling bad about yourself - or that you are a failure or have let yourself or your family down: not at all 7. Trouble concentrating on things, such as reading the newspaper or watching television: not at all 8. Moving or speaking so slowly that other people could have noticed. Or the opposite - being so fidgety or restless that you have been moving around a lot more than usual: not at all 9. Thoughts that you would be better off or of hurting yourself in some way: not at all Total score: 0 Depression Screening Interpretation: Negative Depression Screening Done: Yes Source: Developed by Drs. Eleazar Gutierrez, Hanna Kevin, Chris Bill and colleagues, with an educational brian from [employer]. Thrive Questionnaire Date Thrive assessed: 10/27/23 I am a: Patient What is your living situation today?: I have a steady place to live Within the past 12 months, did the food you bought not last and you didn't have the money to get more?: Never true Within the past 12 months, did you worry whether your food would run out before you got money to buy more?: Never true Do you have trouble paying for medicines?: No Do you have trouble getting transportation to medical appointments?: No Do you have trouble paying your heating and electricity bill?: No Do you have trouble taking care of your child, family member or friend?: No Do you have trouble with day-to-day activities such as bathing, preparing meals, shopping, managing finances, etc.?: No Are you currently unemployed and looking for a job?: No Are you interested in more education?: No Please select the resources that you would like help with: None THRIVE Score: 0 AUDIT C Alcohol Use Questionnaire (AUDIT-C) 1. How often do you have a drink containing alcohol?: Never 3. How often do you have six or more drinks on one occasion?: Never Total Score: 0 MARCELLO-7 AMB Questionnaire MARCELLO-7 Date MARCELLO - 7 assessed: 10/27/23 Feeling nervous, anxious, or on edge: 0 = Not at all Not being able to stop or control worryin = Not at all Worrying too much about different things: 0 = Not at all Trouble relaxin = Not at all Being so restless that it is hard to sit still: 0 = Not at all Becoming easily annoyed or irritable: 0 = Not at all Feeling afraid as if something awful might happen: 0 = Not at all Total MARCELLO-7 score (0-4 normal; 5-9 mild; 10-14 moderate; 15-21 severe): 0 Source: Developed by Drs. Eleazar Gutierrez, Hanna Kevin, Chris Bill and colleagues, with an educational brian from [employer]. Review of Systems Const All systems reviewed & are unremarkable except as noted in HPI and below Reports no additional complaints Eyes Reports no additional complaints ENT Reports no additional complaints Card Reports no additional complaints Physical exam (Primary Care) Vital Signs: Last Vital Signs Pulse 63 10/27/23 12:04 BP 122/70 10/27/23 12:04 Pulse Ox 96 10/27/23 12:04 Oxygen Delivery Method Room Air 10/27/23 12:04 BMI result Body Mass Index 28.0 Tobacco/Smoking Status: Tobacco use Status Tobacco use date assessed 10/27/23 10/27/23 12:15 Patient Tobacco Use Status Never used Tobacco 10/27/23 12:15 e-Cigarette/Vaping Use Never Used 10/27/23 12:04 PHQ-9: PHQ-9 Score PHQ-9: Total score 0 10/27/23 12:52 Depression Screening Interpretation: Negative Thrive Assessment: Date of Thrive Assessment Date Thrive assessed 10/27/23 10/27/23 12:15 Const General: no acute distress HENMT Head: Yes normal to inspection Eyes General: appearance normal, both eyes and all related structures Neck Neck: Yes no lymphadenopathy and Yes supple Resp Effort & Inspection: normal respiratory effort Auscultation: crackles and wheezes Cardio Rhythm: regular rhythm Heart sounds: S1 normal heart sound present and S2 normal heart sound present GI Inspection: Yes normal to inspection Palpation (GI): Soft to palpation Percussion: Yes normal to percussion Auscultation: normal bowel sounds Assessment and Plan Assessment & Plan (1) Hyperlipidemia: Comment: diet controlled, pt declined statins Code(s): E78.5 - Hyperlipidemia, unspecified Plan: CONTINUE LOW-CHOLESTEROL DIET (2) COPD (chronic obstructive pulmonary disease): Code(s): J44.9 - Chronic obstructive pulmonary disease, unspecified Plan: For overlap in asthma/COPD montelukast will be added, patient will continue Trelegy daily and use albuterol as needed and follow-up in 1 month (3) Colon polyps: Comment: last colonoscopy polyps 2022 4 polyps, recheck in 1 year ,Dr. Savage Code(s): K63.5 - Polyp of colon Plan: Follow-up with GI (4) HTN (hypertension): Code(s): I10 - Essential (primary) hypertension Plan: Continue losartan (5) Asthma: Comment: PFT 12/08 Code(s): J45.909 - Unspecified asthma, uncomplicated (6) Annual physical exam: Code(s): Z00.00 - Encounter for general adult medical examination without abnormal findings Plan: Well-balanced diet regular physical activity discussed with the patient Medications: New montelukast 10 mg PO DAILY 30 tabs 1RF Coding Level of Care Code Est Pt Prev Care >65y(95178) Diagnoses Hyperlipidemia E78.5 COPD (chronic obstructive pulmonary disease) J44.9 Colon polyps K63.5 HTN (hypertension) I10 Asthma J45.909 Annual physical exam Z00.00
== END 2023-10-27 13:09 | disposition home or self-care (01) ==
PROVIDERS: PCP Internal Medicine; Visit Provider Internal Medicine
DX: E78.5 Hyperlipidemia, unspecified (principal); J44.9 Chronic obstructive pulmonary disease, unspecified; K63.5 Polyp of colon; I10 Essential (primary) hypertension; J45.909 Unspecified asthma, uncomplicated; Z00.00 Encounter for general adult medical examination without abnormal findings
CPT/HCPCS: 99397

== ENCOUNTER 2024-04-26 08:01 | Outpatient (REF) | payer MEDICARE, SELFPAY ==
[2024-04-26 09:58] LABS: MANUAL DIFF FLAG NO
[2024-04-26 10:05] LABS: Basophils Absolute Auto 0.1 X10*3/uL (0.0-0.2); Basophils Percent Auto 1.2 % (0-2); Eosinophils Absolute Auto 0.5 X10*3/uL (0.0-0.4); Eosinophils Percent Auto 11.3 % (0-4); Hematocrit 38.9 % (37.0-47.0); Hemoglobin 12.8 g/dl (12.0-16.0); Imm Gran Abs Auto 0.01 X10*3/uL (0.00-0.03); Imm Gran Pct Auto 0.2 % (0.0-0.4); Lymphocytes Absolute Auto 1.3 X10*3/uL (1.2-4.9); Lymphocytes Percent Auto 31.5 % (20-40); Mean Corpuscular HGB Conc 32.9 g/dl (31.0-35.0); Mean Corpuscular Hemoglobin 29.5 pg (27.0-33.0); Mean Corpuscular Volume 89.6 fL (80.0-98.0); Mean Platelet Volume 11.2 fL (9.4-12.3); Monocytes Absolute Auto 0.4 X10*3/uL (0.1-1.2); Monocytes Percent Auto 9.4 % (2-11); Neutrophils Absolute Auto 1.9 x10*3/uL (2.0-8.3); Neutrophils Percent Auto 46.4 % (45-73); Platelet Count 130 X10*3/uL (160-400); Red Blood Count 4.34 X10*6/uL (4.20-5.50); Red Cell Distribution Width 13.3 % (11.0-16.0); White Blood Count 4.1 X10*3/uL (4.8-10.8)
[2024-04-26 10:16] LABS: Alanine Aminotransferase 20 U/L (0-31); Alkaline Phosphatase 55 U/L (39-117); Anion Gap 10 (12-20); Aspartate Amino Transferase 22 U/L (5-31); Bilirubin Total 0.4 mg/dL (0.0-1.0); Blood Urea Nitrogen 15 mg/dL (9-16); Calcium 9.1 mg/dL (8.4-10.2); Carbon Dioxide 28 mmol/L (22-29); Chloride 109 mmol/L (96-108); Cholesterol 228 mg/dL (<200); Estimated Glomerular Filt Rate > 60; Glucose Fasting 93 mg/dL (60-99); HDL Cholesterol 49 mg/dL (>40); LDL Cholesterol Calculated 143 mg/dL (<100); Potassium 4.4 mmol/L (3.3-5.1); Sodium 143 mmol/L (135-145); Total Protein 6.5 g/dL (6.5-8.0); Triglycerides 181 mg/dL (<150)
[2024-04-30 14:59] LABS: Vitamin D 25-OH, D2 <4 ng/mL; Vitamin D 25-OH, D3 35 ng/mL; Vitamin D 25-OH, Total 35 ng/mL (30-100)
== END 2024-04-26 08:02 | disposition home or self-care (01) ==
LOC: HO.HMGCLDS 08:01
PROVIDERS: PCP Internal Medicine; Visit Provider Internal Medicine
DX: Z00.00 Encounter for general adult medical examination without abnormal findings (principal); E55.9 Vitamin D deficiency, unspecified; I10 Essential (primary) hypertension; J45.909 Unspecified asthma, uncomplicated
CPT/HCPCS: 36415; 80053; 80061; 82306; 85025

== ENCOUNTER 2024-05-10 10:04 | Outpatient (AMB) | payer MEDICARE, SELFPAY ==
[2024-05-10 10:21] VITALS: BP 120/74; PULSE 57; O2SAT 97; BMI 28.5
--- NOTE | 2024-05-10 10:21 | MHC.PC.OV ---
Vital Signs 05/10/24 10:21 Height 5 ft 5 in Weight 171 lb BMI 28.5 BP 120/74 Blood Pressure Location Rt brachial Position Sitting Pulse 57 Pulse Source Pulse Oximeter Pulse Oximetry (%) 97 Oxygen Delivery Method Room Air Intake Visit Reasons: Follow up Intake Note: Pt is here today for a follow up visit. Allergies meperidine [From Demerol] Allergy (Mild, Verified 05/10/24 10:33) hives paper tape Allergy (Mild, Uncoded 05/10/24 10:33) Redness of Skin Medication List - Last Reconciled 05/10/24 by Saadia Trotter MD albuterol sulfate 90 mcg/actuation (ProAir HFA) 2 puffs inhalation Q6-8H PRN albuterol sulfate 90 mcg/actuation 2 puffs inhalation Q6H PRN ascorbate calcium (vitamin C) 500 mg PO DAILY calcium carbonate-vitamin D3 600 mg-10 mcg (400 unit) (Calcium with Vitamin D) 1 tab PO DAILY famotidine 40 mg PO DAILY qrgwgbqhqem-ifncfnyuz-udawhcbn 100-62.5-25 mcg (Trelegy Ellipta) 1 ea inhalation DAILY losartan 12.5 mg (1/2 x 25 mg) PO DAILY magnesium chloride PO Tobacco use date assessed: 05/10/24 Fall risk assessment: No Falls in past year Last assessed Fall Risk: 05/10/24 Dental Screening Dental Screen Date: 05/10/24 Did you have a dental visit in the last 12 months?: Yes Did you have a dental problem in the last 6 months where you did not have access to dental care?: No Was dental information given to patient?: Patient has dentist HPI Follow up HPI Details Patient presents for the follow-up of chronic asthma/COPD and hypertension controlled on current medications. [facility] Medical History Vitamin D deficiency Osteopenia HTN (hypertension) Asthma Rectal prolapse Surgical History Hx of tubal ligation Hx of tonsillectomy Hx of mastectomy Hx of breast reconstruction Family History Mother No problems noted. Father Throat cancer Lung cancer Prostate cancer Social History Housing: House Patient Tobacco Use Status: Never used Tobacco e-Cigarette/Vaping Use: Never Used service: No Current occupational status: retired Cognitive needs: No Hearing needs: No Vision needs: Yes Questionnaire PHQ-9 Over the last 2 weeks, how often have you been bothered by any of the following problems? 1. Little interest or pleasure in doing things: not at all 2. Feeling down, depressed, or hopeless: not at all 3. Trouble falling or staying asleep, or sleeping too much: not at all 4. Feeling tired or having little energy: not at all 5. Poor appetite or overeating: not at all 6. Feeling bad about yourself - or that you are a failure or have let yourself or your family down: not at all 7. Trouble concentrating on things, such as reading the newspaper or watching television: not at all 8. Moving or speaking so slowly that other people could have noticed. Or the opposite - being so fidgety or restless that you have been moving around a lot more than usual: not at all 9. Thoughts that you would be better off or of hurting yourself in some way: not at all Total score: 0 Depression Screening Interpretation: Negative Depression Screening Done: Yes 47967 - PHQ-9 Billing: Yes Source: Developed by Drs. Eleazar Gutierrez, Hanna Kevin, Chris Bill and colleagues, with an educational brian from [employer]. Thrive Questionnaire Date Thrive assessed: 05/10/24 I am a: Patient What is your living situation today?: I have a steady place to live Within the past 12 months, did the food you bought not last and you didn't have the money to get more?: Never true Within the past 12 months, did you worry whether your food would run out before you got money to buy more?: Never true Do you have trouble paying for medicines?: No Do you have trouble getting transportation to medical appointments?: No Do you have trouble paying your heating and electricity bill?: No Do you have trouble taking care of your child, family member or friend?: No Do you have trouble with day-to-day activities such as bathing, preparing meals, shopping, managing finances, etc.?: No Are you currently unemployed and looking for a job?: No Are you interested in more education?: No Please select the resources that you would like help with: None Currently or been in a relationship where the following occur: No concerns reported THRIVE Score: 0 AUDIT C Alcohol Use Questionnaire (AUDIT-C) 1. How often do you have a drink containing alcohol?: 2-4 times a month 2. How many drinks containing alcohol do you have on a typical day when you are drinking?: 1 or 2 3. How often do you have six or more drinks on one occasion?: Never Total Score: 2 MARCELLO-7 AMB Questionnaire MARCELLO-7 Date MARCELLO - 7 assessed: 05/10/24 Feeling nervous, anxious, or on edge: 0 = Not at all Not being able to stop or control worryin = Not at all Worrying too much about different things: 0 = Not at all Trouble relaxin = Not at all Being so restless that it is hard to sit still: 0 = Not at all Becoming easily annoyed or irritable: 0 = Not at all Feeling afraid as if something awful might happen: 0 = Not at all Total MARCELLO-7 score (0-4 normal; 5-9 mild; 10-14 moderate; 15-21 severe): 0 Source: Developed by Drs. Eleazar Gutierrez, Hanna Kevin, Chris Bill and colleagues, with an educational brian from [employer]. MARCELLO-7 Assessment Billing MARCELLO-7 Assessment Tool: MARCELLO-7 Assessment 89866 Review of Systems Const All systems reviewed & are unremarkable except as noted in HPI and below ENT Reports no additional complaints Card Reports no additional complaints Resp Reports no additional complaints GI Reports no additional complaints Reports no additional complaints Physical exam (Primary Care) Vital Signs: Last Vital Signs Pulse 57 05/10/24 10:21 BP 120/74 05/10/24 10:21 Pulse Ox 97 05/10/24 10:21 Oxygen Delivery Method Room Air 05/10/24 10:21 BMI result Body Mass Index 28.5 Tobacco/Smoking Status: Tobacco use Status Tobacco use date assessed 05/10/24 05/10/24 10:34 Patient Tobacco Use Status Never used Tobacco 05/10/24 10:25 e-Cigarette/Vaping Use Never Used 05/10/24 10:25 PHQ-9: PHQ-9 Score PHQ-9: Total score 0 05/10/24 10:36 Depression Screening Interpretation: Negative Thrive Assessment: Date of Thrive Assessment Date Thrive assessed 05/10/24 05/10/24 10:36 Currently or been in a relationship where the following occur: No concerns reported Const General: no acute distress HENMT Head: Yes normal to inspection Throat: Yes posterior oropharynx normal Eyes General: appearance normal, both eyes and all related structures Neck Neck: Yes supple Resp Effort & Inspection: normal respiratory effort Auscultation: clear to auscultation bilaterally Cardio Rhythm: regular rhythm Heart sounds: S1 normal heart sound present and S2 normal heart sound present Coding Level of Care Code Est Pt Level 4 (69456) Diagnoses HTN (hypertension) I10 Vitamin D deficiency E55.9 Hyperlipidemia E78.5 COPD (chronic obstructive pulmonary disease) J44.9 Additional Codes MARCELLO-7 Assessment Billing - MARCELLO-7 Assessment Tool: MARCELLO-7 Assessment 57639 ([id number]) PHQ-9 - 89525 - PHQ-9 Billing: Yes ([id number]) Assessment & Plan Assessment & Plan (1) HTN (hypertension): Code(s): I10 - Essential (primary) hypertension Category: Medical Plan: Continue losartan (2) Vitamin D deficiency: Code(s): E55.9 - Vitamin D deficiency, unspecified Category: Medical Plan: Continue vitamin-D supplement (3) Hyperlipidemia: Comment: diet controlled, pt declined statins Code(s): E78.5 - Hyperlipidemia, unspecified Category: Medical Plan: Continue low-cholesterol diet, increase physical activity (4) COPD (chronic obstructive pulmonary disease): Code(s): J44.9 - Chronic obstructive pulmonary disease, unspecified Category: Medical Plan: Continue Trelegy , return in 6 months for physical with a fasting labs before Orders: Orders Lipid Panel 6 Months E55.9 - Vitamin D deficiency, unspecified, E78.5 - Hyperlipidemia, unspecified, I10 - Essential (primary) hypertension, J44.9 - Chronic obstructive pulmonary disease, unspecified Comprehensive Dickinson. Panel Fast 6 Months E55.9 - Vitamin D deficiency, unspecified, E78.5 - Hyperlipidemia, unspecified, I10 - Essential (primary) hypertension, J44.9 - Chronic obstructive pulmonary disease, unspecified Complete Blood Count Auto Diff 6 Months E55.9 - Vitamin D deficiency, unspecified, E78.5 - Hyperlipidemia, unspecified, I10 - Essential (primary) hypertension, J44.9 - Chronic obstructive pulmonary disease, unspecified Vitamin D 25-OH Total 6 Months E55.9 - Vitamin D deficiency, unspecified, E78.5 - Hyperlipidemia, unspecified, I10 - Essential (primary) hypertension, J44.9 - Chronic obstructive pulmonary disease, unspecified Medications: Refilled famotidine 40 mg PO DAILY 90 tabs 3RF gsisiisxkaw-uorpdmngb-iqebtgmw 100-62.5-25 mcg (Trelegy Ellipta) 1 ea inhalation DAILY 180 ea 3RF
--- OUTSIDE RECORDS SUMMARY | 2024-05-10 11:02 | XMS_ITS | Clinical Summary ---
Author Organization [facility] Address [address] [place] [address] Care Team Providers Care Pi/Senior Research Associate Name Role Phone Unavailable Primary Care Provider Unavailabl e Allergies Active Allergy Reactions Criticality Noted Date Comments Demerol 08/04/2017 hives Medications Budesonide-Form oterol Fumarate (SYMBICORT) 80-4.5 MCG/ACT Aerosol None Entered Active ALBUTEROL SULFATE (PROAIR HFA) 108 (90 BASE) MCG/ACT Aero Soln None Entered Active Famotidine (PEPCID) 20 MG Tab 1 TABLET TWICE DAILY Active Active Problems No known active problems Social History Tobacco Use Types Packs/Day Years Used Date Smoking Tobacco: Former Smokeless Tobacco: Never Comments No Sex and Gender Information Value Date Recorded Sex Assigned at Not on file Legal Sex Female 10:16 AM EDT Gender Identity Not on file Sexual Orientation Not on file Last Filed Vital Signs Vital Sign Reading Time Taken Comments Blood Pressure 133/75 08/04/2017 10:22 AM EDT Pulse 68 08/04/2017 10:53 AM EDT Temperature 36.7 ??C (98.1 ??F) 08/04/2017 10:22 AM E DT Respiratory Rate 18 08/04/2017 10:53 AM EDT Oxygen Saturation 97% 08/04/2017 10:53 AM EDT Inhaled Oxygen Concentration - - Weight - - Height - - Body Mass Index - - Plan of Treatment Health Maintenance Due Date Last Done Comments Hepatitis C Screening 1945 DTaP/Tdap/Td (1 - Tdap) 1963 Pneumococcal 50+ years (1 of 1 - PCV) 1995 Zoster (Shingrix) (1 of 2) 1995 Bone Density 2010 RSV (1 - 1-dose 75+ series) 2020 COVID-19 Vaccine (2023-2 5 season) 2023 Influenza (#1) 2023 HPV Vaccine Aged Out No longer eligi ble based on patient's age to complete this topic Hep A Aged Out No longer eligi ble based on patient's age to complete this topic Hep B Aged Out No longer eligi ble based on patient's age to complete this topic Hib Aged Out No longer eligi ble based on patient's age to complete this topic Mammogram/Breast Imaging Discontinued Meningococcal ACWY Aged Out No longer eligible based on patient's age to complete this topic Pap Smear Discontinued Zoster (Zostavax) Discontinued Insurance [employer] FEE FOR SERVICE MEDICARE
== END 2024-05-10 11:17 | disposition home or self-care (01) ==
PROVIDERS: PCP Internal Medicine; Visit Provider Internal Medicine
DX: I10 Essential (primary) hypertension (principal); E55.9 Vitamin D deficiency, unspecified; E78.5 Hyperlipidemia, unspecified; J44.9 Chronic obstructive pulmonary disease, unspecified

== ENCOUNTER → 2024-05-10 10:04 | Outpatient (BNVA) | payer MEDICARE, SELFPAY | PROVIDERS: PCP Internal Medicine; Visit Provider Internal Medicine | DX: I10 Essential (primary) hypertension (principal); E55.9 Vitamin D deficiency, unspecified; E78.5 Hyperlipidemia, unspecified; J44.9 Chronic obstructive pulmonary disease, unspecified | CPT/HCPCS: 96127; 99212 ==

== ENCOUNTER 2024-06-27 12:02 | Outpatient (AMB) | payer MEDICARE, SELFPAY ==
--- NOTE | 2024-06-27 12:37 | A.OFFPC_ITS ---
Vital Signs 06/27/24 12:41 Height 5 ft 5 in Weight 169 lb BMI 28.1 BP 122/64 Blood Pressure Location Rt brachial Position Sitting Respiration 18 Pulse 80 Pulse Source Pulse Oximeter Temp 98.0 F Temp Source Oral Pulse Oximetry (%) 97 Oxygen Delivery Method Room Air Intake Visit Reasons: Follow up and referral Intake Note: Pt is here today for a follow up visit after being sick and being at Urgent care. Pt states that she is raspy voice. Allergies meperidine [From Demerol] Allergy (Mild, Verified 06/27/24 12:47) hives paper tape Allergy (Mild, Uncoded 06/27/24 12:47) Redness of Skin Medication List - Last Reconciled 06/27/24 by Saadia Trotter MD albuterol sulfate 90 mcg/actuation 2 puffs inhalation Q6H PRN albuterol sulfate 90 mcg/actuation 2 puffs inhalation Q6-8H PRN ascorbate calcium (vitamin C) 500 mg PO DAILY calcium carbonate-vitamin D3 600 mg-10 mcg (400 unit) (Calcium with Vitamin D) 1 tab PO DAILY famotidine 40 mg PO DAILY xriwnxipacm-toernxawm-qsnsrweb 100-62.5-25 mcg (Trelegy Ellipta) 1 ea inhalation DAILY losartan 12.5 mg (1/2 x 25 mg) PO DAILY magnesium chloride PO Trelegy Ellipta 200-62.5-25 mcg (likhspnpxvd-ywuwiqmrf-mksitrfa) 1 inh inhalation DAILY NS Tobacco use date assessed: 06/27/24 Fall risk assessment: No Falls in past year Last assessed Fall Risk: 06/27/24 Dental Screening Dental Screen Date: 05/10/24 HPI Follow up and referral HPI Details Patient presents for the follow-up of COPD and hypertension. She had an episode of upper respiratory infection was treated with a prednisone taper followed by a course of antibiotic. Patient reports persistent nonproductive cough and some dyspnea on exertion. She has been using Trelegy regularly and albuterol as needed only. Patient denies sputum production PND orthopnea chest pain palpitations fever or chills. [facility] Medical History (Updated 06/27/24 @ 15:54 by Saadia Trotter MD) Vitamin D deficiency Osteopenia HTN (hypertension) Rectal prolapse Surgical History Hx of tubal ligation Hx of tonsillectomy Hx of mastectomy Hx of breast reconstruction Family History Mother No problems noted. Father Throat cancer Lung cancer Prostate cancer Social History Housing: House Patient Tobacco Use Status: Never used Tobacco e-Cigarette/Vaping Use: Never Used service: No Current occupational status: retired Cognitive needs: No Hearing needs: No Vision needs: Yes Questionnaire Thrive Questionnaire Date Thrive assessed: 05/10/24 I am a: Patient What is your living situation today?: I have a steady place to live Within the past 12 months, did the food you bought not last and you didn't have the money to get more?: Never true Within the past 12 months, did you worry whether your food would run out before you got money to buy more?: Never true Do you have trouble paying for medicines?: No Do you have trouble getting transportation to medical appointments?: No Do you have trouble paying your heating and electricity bill?: No Do you have trouble taking care of your child, family member or friend?: No Do you have trouble with day-to-day activities such as bathing, preparing meals, shopping, managing finances, etc.?: No Are you currently unemployed and looking for a job?: No Are you interested in more education?: No Please select the resources that you would like help with: None Currently or been in a relationship where the following occur: No concerns reported THRIVE Score: 0 MARCELLO-7 AMB Questionnaire MARCELLO-7 Date MARCELLO - 7 assessed: 05/10/24 Source: Developed by Drs. Eleazar Gutierrez, Hanna Kevin, Chris Bill and colleagues, with an educational brian from [employer]. Review of Systems Const All systems reviewed & are unremarkable except as noted in HPI and below Eyes Reports no additional complaints ENT Reports no additional complaints Card Reports no additional complaints Resp Reports no additional complaints GI Reports no additional complaints Reports no additional complaints Physical exam (Primary Care) Vital Signs: Last Vital Signs Temp 98.0 F 06/27/24 12:41 Pulse 80 06/27/24 12:41 Resp 18 06/27/24 12:41 BP 122/64 06/27/24 12:41 Pulse Ox 97 06/27/24 12:41 Oxygen Delivery Method Room Air 06/27/24 12:41 BMI result Body Mass Index 28.1 Tobacco/Smoking Status: Tobacco use Status Tobacco use date assessed 06/27/24 06/27/24 12:48 Patient Tobacco Use Status Never used Tobacco 06/27/24 12:37 e-Cigarette/Vaping Use Never Used 06/27/24 12:37 Thrive Assessment: Date of Thrive Assessment Date Thrive assessed 05/10/24 06/27/24 12:37 Currently or been in a relationship where the following occur: No concerns reported Const General: no acute distress HENMT Head: Yes normal to inspection Face and sinus: Yes normal facial exam Eyes General: appearance normal, both eyes and all related structures Neck Neck: Yes no lymphadenopathy and Yes supple Resp Effort & Inspection: normal respiratory effort Auscultation: wheezes and diminished lung sounds Cardio Rhythm: regular rhythm Heart sounds: S1 normal heart sound present and S2 normal heart sound present Coding Level of Care Code Est Pt Level 4 (50680) Diagnoses COPD (chronic obstructive pulmonary disease) J44.9 HTN (hypertension) I10 Assessment & Plan Assessment & Plan (1) COPD (chronic obstructive pulmonary disease): Code(s): J44.9 - Chronic obstructive pulmonary disease, unspecified Category: Medical Plan: Increase Trelegy to 200 mcg and use albuterol p.r.n.. Follow-up in 1 week. Patient declined taking prednisone taper (2) HTN (hypertension): Code(s): I10 - Essential (primary) hypertension Category: Medical Plan: Continue losartan Medications: New Trelegy Ellipta 200-62.5-25 mcg (rxyohaumqgp-flbaxtabb-dcebjxqw) 1 inh inhalation DAILY 180 ea 3RF NS Trelegy Ellipta 200-62.5-25 mcg (pdcatoppbvk-papzflpzc-dypetnvc) 1 inh inhalation DAILY 60 ea 3RF NS On Hold wsvfphsntzs-rztodkprv-jcwvpsng 100-62.5-25 mcg (Trelegy Ellipta) Hold Comment: Doctor's Order 1 ea inhalation DAILY 180 ea 3RF
[2024-06-27 12:41] VITALS: BP 122/64; PULSE 80; RESP 18; TEMP 36.7; O2SAT 97; BMI 28.1
--- OUTSIDE RECORDS SUMMARY | 2024-06-27 14:46 | XMS_ITS | Encounter Summary ---
Author Organization [facility] Address [address] [place] [address] Care Team Providers Care Practice Advisor Name Role Phone Community, Pcp Primary Care Provider Rachael Palmer MD Primary Care Provider Verenice Fajardo MD Primary Care Provider Unavail noe [facility], Pcp Primary Care Provider Yanci emery Encounter Details Date Type Department Care Team Description 02/12/2016 Release of Information Medical Records [address] [place] [address] Abstract, Provider Social History Tobacco Use Types Packs/Day Years Used Date Smoking Tobacco: Former Smokeless Tobacco: Former Quit: 07/02/1964 Alcohol Use Standard Drinks/Week Comments Not Asked 0 (1 standard drink = 0.6 oz pur e alcohol) Sex Assigned at Date Recorded Not on file documented as of this encounter Plan of Treatment Not on file documented as of this encounter Visit Diagnoses Not on filedocumented in this encounter Care Teams Practice Advisor Relationship Specialty Start Date End Date Community, Pcp PCP - General Internal Medicine 02/03/16 02/23/18 Rachael Horton MD PCP - General Internal Medicine 02/24/18 07/14/18 Verenice Rose MD PCP - General Internal Medicine 07/15/18 05/20/21 [facility], Pcp PCP - General Internal Medicine 05/21/21 documented as of this encounter
--- OUTSIDE RECORDS SUMMARY | 2024-06-27 14:46 | XMS_ITS | Encounter Summary ---
Author Organization [facility] Address [facility] [place] [address] Care Team Providers Care Showplace Manager Name Role Phone Verenice Rose MD Primary Care Provider Unavail able [facility], Pcp Primary Care Provider Unavailabl e Encounter Details Date Type Department Care Team Description 09/07/2018 Release of Information Medical Records [address] [place] [id number] Abstract, Provider Social History Tobacco Use Types Packs/Day Years Used Date Smoking Tobacco: Former Smokeless Tobacco: Former Quit: 07/02/1964 Comments:3 years as a teenag er Alcohol Use Standard Drinks/Week Comments No 0 (1 standard drink = 0.6 oz pur e alcohol) Sex Assigned at Date Recorded Not on file documented as of this encounter Plan of Treatment Not on file documented as of this encounter Visit Diagnoses Not on filedocumented in this encounter Care Teams Showplace Manager Relationship Specialty Start Date End Date Verenice Rose MD PCP - General Internal Medicine 07/15/18 05/20/21 [facility], Pcp PCP - General Internal Medicine 05/21/21 documented as of this encounter
--- OUTSIDE RECORDS SUMMARY | 2024-06-27 14:46 | XMS_ITS | Encounter Summary ---
Author Organization [facility] Address [facility] [place] [address] Care Team Providers Care Testing And Regulating Technician Name Role Phone Verenice Rose MD Primary Care Provider [facility], Pcp Primary Care Provider Unavailabl e Reason for Visit * Reason Onset Date Comments APPOINTMENT 05/08/2019 Encounter Details Date Type Department Care Team Description 05/08/2019 Telephone Adult Medicine [address] [address] Verenice Rose MD APPOINTMENT Social History Tobacco Use Types Packs/Day Years Used Date Smoking Tobacco: Former Smokeless Tobacco: Former Quit: 07/02/1964 Comments:3 years as a teenag er Alcohol Use Standard Drinks/Week Comments No 0 (1 standard drink = 0.6 oz pur e alcohol) Sex Assigned at Date Recorded Not on file documented as of this encounter Miscellaneous Notes * Telephone Encounter - Kira Anderson R.N. - 05/08/2019 11:46 AM EST Pt needs f/u on or around 08/03 with PCP for BP f/u If pt calls back please schedule I left a message for the patient to return my call. * Telephone Encounter - Verenice Rose MD - 05/08/2019 11:42 AM EST Would like to see her in 3 months * Telephone Encounter - Kira Anderson R.N. - 05/08/2019 11:25 AM EST Pt asking when she needs to be seen for BP med f/u, she was seen but has a 6 mo f/u scheduled in june. Does she need to be seen then or can she wait the 6 months from last visit ( September ) ? * Telephone Encounter - Yoon Corea - 05/08/2019 11:07 AM EST Patient is returning call * Telephone Encounter - Kira Anderson R.N. - 05/08/2019 9:42 AM EST [phone] (home) I left a message for the patient to return my call. Pt was seen last week with headache S/p craniotomy and went to [place] for ct scan The appointment in june is a 6 mo f/u and med review was made back in December , can be cancelledand rescheduled sooner as f/u to [place] visit * Telephone Encounter - Demetria Hilton M.A. - 05/08/2019 9:29 AM EST Pt is scheduled to see pcp 07/03/2019 and needs to reschedule. No available slots please advise documented in this encounter Plan of Treatment Not on file documented as of this encounter Visit Diagnoses Not on filedocumented in this encounter Care Teams Testing And Regulating Technician Relationship Specialty Start Date End Date Verenice Rose MD PCP - General Internal Medicine 07/15/18 05/20/21 [facility], Patria PCP - General Internal Medicine 05/21/21 documented as of this encounter
--- OUTSIDE RECORDS SUMMARY | 2024-06-27 14:46 | XMS_ITS | Encounter Summary ---
Author Organization [facility] Address [address] [place] [address] Care Team Providers Care Filament Cutter Name Role Phone Verenice Rose MD Primary Care Provider [facility] Pcp Primary Care Provider Unavailabl e Reason for Visit * Reason Onset Date Comments refill request 12/31/2019 Encounter Details Date Type Department Care Team Description 12/31/2019 Refill Adult Urgent Care - [address] [address] Verenice Rose MD refill request Social History Tobacco Use Types Packs/Day Years Used Date Smoking Tobacco: Former Smokeless Tobacco: Former Quit: 07/02/1964 Comments:3 years as a teenag er Alcohol Use Standard Drinks/Week Comments No 0 (1 standard drink = 0.6 oz pur e alcohol) Sex Assigned at Date Recorded Not on file documented as of this encounter Miscellaneous Notes * Telephone Encounter - Ken Mallory - 12/31/2019 2:45 PM EDT Patient would like script to be: E-PRESCRIBED/FAXED TO PHARMACY WHEN WAS THE PATIENT'S LAST APPOINTMENT IN ADULT MEDICINE? 12/11/2019 WHEN WAS THE LAST TIME THE PATIENT SAW THEIR PCP? 06/13/2019 Does patient have an upcoming appointment? No-patient refused appointment, will call back to book appointment (THE MEDICATION REQUESTED IS ON THE MED LIST ABOVE) All of the medications requested were on the CURRENT MEDS list Did you check the Pharmacy information above?: YES Patient wants: 90 -day supply Is this a mail order prescription request ? NO If the refill is from a FAXED refill request what is the RX # listed on the fax? N/A Patients current insurance carrier is: Payor: [facility]/MEDICARE PPO / Plan: [facility] MDCR-ADV PPO $20/$40 [place] / Product Type: MEDICARE [id number] documented in this encounter Plan of Treatment Not on file documented as of this encounter Visit Diagnoses Not on filedocumented in this encounter Care Teams Filament Cutter Relationship Specialty Start Date End Date Verenice Rose MD PCP - General Internal Medicine 07/15/18 [facility] 05/21/21 documented as of this encounter
--- OUTSIDE RECORDS SUMMARY | 2024-06-27 14:46 | XMS_ITS | Encounter Summary ---
Author Organization [facility] Address [address] [place] [address] Care Team Providers Care Aerotriangulation Specialist Name Role Phone Verenice Rose MD Primary Care Provider [facility], Pcp Primary Care Provider Unavailabl e Reason for Visit * Reason Onset Date Comments refill request 09/02/2018 Encounter Details Date Type Department Care Team Description 09/02/2018 Refill Adult Medicine [address] [address] Verenice Rose MD refill request Social History Tobacco Use Types Packs/Day Years Used Date Smoking Tobacco: Former Smokeless Tobacco: Former Quit: 07/02/1964 Alcohol Use Standard Drinks/Week Comments Not Asked 0 (1 standard drink = 0.6 oz pur e alcohol) Sex Assigned at Date Recorded Not on file documented as of this encounter Miscellaneous Notes * Telephone Encounter - Demetria Hilton M.A. - 09/11/2018 9:01 AM EDT No results found for: NA, K, CO2, CL, BUN, CREAT, GLU, CA, GFR Last ov with Elinor Laird 09/05/18 * Telephone Encounter - Dillon Hardy - 09/10/2018 8:32 AM EDT Patient would like script to be: E-PRESCRIBED/FAXED TO PHARMACY WHEN WAS THE PATIENT'S LAST APPOINTMENT IN ADULT MEDICINE? 09/05/18 WHEN WAS THE LAST TIME THE PATIENT SAW THEIR PCP? New patient Does patient have an upcoming appointment? Yes 12/23/18 Needs a [facility] script [facility]. Has a refill but a new script required with Dr Rose's name. Patient needs this [place] 10 [place]. (THE MEDICATION REQUESTED IS ON THE MED LIST ABOVE) All of the medications requested were on the CURRENT MEDS list Did you check the Pharmacy information above?: YES Patient wants: 90 -day supply Is this a mail order prescription request ? YES If the refill is from a FAXED refill request what is the RX # listed on the fax? N/A Patients current insurance carrier is: Payor: [facility]/MEDICARE PPO / Plan: [facility] MDCR-ADV PPO $20/$40 [place] / Product Type: MEDICARE [id number] * Telephone Encounter - Angelia Tamayo - 09/02/2018 10:26 AM EDT documented in this encounter Plan of Treatment Not on file documented as of this encounter Visit Diagnoses Not on filedocumented in this encounter Care Teams Aerotriangulation Specialist Relationship Specialty Start Date End Date Verenice Rose MD PCP - General Internal Medicine 07/15/18 05/20/21 Patria Alvarado PCP - General Internal Medicine 05/21/21 documented as of this encounter
--- OUTSIDE RECORDS SUMMARY | 2024-06-27 14:46 | XMS_ITS | Encounter Summary ---
Author Organization [facility] Address [address] [place] [address] Care Team Providers Care Field Services Director Name Role Phone Verenice Rose MD Primary Care Provider [facility] Pcp Primary Care Provider Unavailabl e Reason for Visit * Reason Comments E-prescribe Rx Request Encounter Details Date Type Department Care Team Description 04/10/2019 Refill Adult Medicine [address] [id number] Elinor Laird PA-C E-prescribe Rx Request Social History Tobacco Use Types Packs/Day Years Used Date Smoking Tobacco: Former Smokeless Tobacco: Former Quit: 07/02/1964 Comments:3 years as a teenag er Alcohol Use Standard Drinks/Week Comments No 0 (1 standard drink = 0.6 oz pur e alcohol) Sex Assigned at Date Recorded Not on file documented as of this encounter Miscellaneous Notes * Telephone Encounter - Zahra Pressley - 04/10/2019 6:24 PM EST Patient would like script to be: E-PRESCRIBED/FAXED TO PHARMACY WHEN WAS THE PATIENT'S LAST APPOINTMENT IN ADULT MEDICINE? 03/24/19 WHEN WAS THE LAST TIME THE PATIENT SAW THEIR PCP? Same as above Does patient have an upcoming appointment? Yes 04/17/19 (THE MEDICATION REQUESTED IS ON THE MED LIST ABOVE) All of the medications requested were on the CURRENT MEDS list Did you check the Pharmacy information above?: YES Patient wants: 90 -day supply Is this a mail order prescription request ? YES If the refill is from a FAXED refill request what is the RX # listed on the fax? N/A' Patients current insurance carrier is: Payor: [facility]/MEDICARE PPO / Plan: [facility] MDCR-ADV PPO $20/$40 [place] / Product Type: MEDICARE [id number] documented in this encounter Plan of Treatment Not on file documented as of this encounter Visit Diagnoses Not on filedocumented in this encounter Care Teams Field Services Director Relationship Specialty Start Date End Date Verenice Rose MD PCP - General Internal Medicine 07/15/18 05/20/21 [facility] PCP - General Internal Medicine 05/21/21 documented as of this encounter
--- OUTSIDE RECORDS SUMMARY | 2024-06-27 14:46 | XMS_ITS | Encounter Summary ---
Author Organization [facility] Address [address] [place] [address] Care Team Providers Care Binder Lockstitch Name Role Phone Rachael Horton MD Primary Care Provider Verenice Fajardo MD Primary Care Provider Unavail able [facility], Pcp Primary Care Provider Unavailabl e Encounter Details Date Type Department Care Team Description 04/13/2018 Erecting Engineer Report Medical Records [address] [place], [place] [phone] [place] [address], [facility] Social History Tobacco Use Types Packs/Day Years [...] on filedocumented in this encounter Care Teams Binder Lockstitch Relationship Specialty Start Date End Date Rachael Horton MD PCP - General Internal Medicine 02/24/18 07/14/18 Verenice Rose MD PCP - General Internal Medicine 07/15/18 05/20/21 [facility], Pcp PCP - General Internal Medicine 05/21/21 documented as of this encounter
--- OUTSIDE RECORDS SUMMARY | 2024-06-27 14:46 | XMS_ITS | Encounter Summary ---
Author Organization [facility] Address [address] [place] [address] Care Team Providers Care Finishing And Shipping Supervisor Name Role Phone Verenice Rose MD Primary Care Provider Unavail able [facility], Pcp Primary Care Provider Unavailabl e Encounter Details Date Type Department Care Team Description 02/21/2019 Hinging Machine Operator Report Medical Records [address] [place] [id number] [place] [address], [facility] Social History Tobacco Use [...] on filedocumented in this encounter Care Teams Finishing And Shipping Supervisor Relationship Specialty Start Date End Date Verenice Rose MD PCP - General Internal Medicine 07/15/18 05/20/21 [facility], Pcp PCP - General Internal Medicine 05/21/21 documented as of this encounter
--- OUTSIDE RECORDS SUMMARY | 2024-06-27 14:46 | XMS_ITS | Encounter Summary ---
Author Organization [facility] Address [facility] [place] [address] Care Team Providers Care Supervisor Force Adjustment Name Role Phone Rachael Horton MD Primary Care Provider Verenice Fajardo MD Primary Care Provider Unavail able [facility], Pcp Primary Care Provider Unavailabl e Encounter Details Date Type Department Care Team Description 05/17/2018 Pricing Actuary Report Medical Records [address] [place] [address] Abstract, Provider Social History Tobacco Use Types [...] on filedocumented in this encounter Care Teams Supervisor Force Adjustment Relationship Specialty Start Date End Date Rachael Horton MD PCP - General Internal Medicine 02/24/18 07/14/18 Verenice Rose MD PCP - General Internal Medicine 07/15/18 05/20/21 [facility], Pcp PCP - General Internal Medicine 05/21/21 documented as of this encounter
--- OUTSIDE RECORDS SUMMARY | 2024-06-27 14:46 | XMS_ITS | Encounter Summary ---
Author Organization [facility] Address [address] [place] [address] Care Team Providers Care Churn Operator Margarine Name Role Phone Verenice Rose MD Primary Care Provider [facility], Pcp Primary Care Provider Unavailabl e Reason for Visit * Reason Onset Date Comments hospital follow up 04/07/2019 Encounter Details Date Type Department Care Team Description 04/07/2019 Telephone Adult Medicine [address] [address] Verenice Rose MD hospital follow up Social History Tobacco Use Types Packs/Day Years Used Date Smoking Tobacco: Former Smokeless Tobacco: Former Quit: 07/02/1964 Comments:3 years as a teenag er Alcohol Use Standard Drinks/Week Comments No 0 (1 standard drink = 0.6 oz pur e alcohol) Sex Assigned at Date Recorded Not on file documented as of this encounter Miscellaneous Notes * Telephone Encounter - Kira Anderson R.N. - 04/07/2019 2:47 PM EST Pt to see dr rose 10:30 on 04/10 for [facility] f/u * Telephone Encounter - Erma Augustin - 04/07/2019 2:44 PM EST Hospital follow up appointment needed Hospital patient was treated at: [facility] Was this only an ER visit or was the patient admitted to the hospital? Admitted to hospital Date of visit if ER visit only: N/A If patient was admitted what was the date of discharge? today Reason/diagnosis for visit or stay: When was the patient told to follow up? Was visit or stay related to an injury? NO If yes, what was the date of injury (DOI)? N/A If yes, was the injury due to N/A documented in this encounter Plan of Treatment Not on file documented as of this encounter Visit Diagnoses Not on filedocumented in this encounter Care Teams Churn Operator Margarine Relationship Specialty Start Date End Date Verenice Rose MD PCP - General Internal Medicine 07/15/18 05/20/21 [facility], Pcp PCP - General Internal Medicine 05/21/21 documented as of this encounter
--- OUTSIDE RECORDS SUMMARY | 2024-06-27 14:46 | XMS_ITS | Clinical Summary ---
Author Organization [facility] Address [address] [place] [address] Care Team Providers Care Plodding Operator Name Role Phone Unavailable Primary Care Provider [...]
--- OUTSIDE RECORDS SUMMARY | 2024-06-27 14:46 | XMS_ITS | Encounter Summary ---
Author Organization [facility] Address [facility] [place] [address] Care Team Providers Care Wool Classer Name Role Phone Verenice Rose MD Primary Care Provider Unavail able [facility], Pcp Primary Care Provider Unavailabl e Encounter Details Date Type Department Care Team Description 05/28/2020 Telephone [facility] - [address] [address] Verenice Rose MD Social History Tobacco Use Types Packs/Day Years [...] on filedocumented in this encounter Care Teams Wool Classer Relationship Specialty Start Date End Date Verenice Rose MD PCP - General Internal Medicine 07/15/18 05/20/21 [facility], Pcp PCP - General Internal Medicine 05/21/21 documented as of this encounter
--- OUTSIDE RECORDS SUMMARY | 2024-06-27 14:46 | XMS_ITS | Encounter Summary ---
Author Organization [facility] Address [facility] [place] [address] Care Team Providers Care First Responder Name Role Phone Verenice Rose MD Primary Care Provider Unavail able [facility], Pcp Primary Care Provider Unavailabl e Reason for Visit * Reason Onset Date Comments Error 06/07/2020 Encounter Details Date Type Department Care Team Description 06/07/2020 Telephone Adult [address] [address] Verenice Rose MD Error Social History Tobacco Use Types Packs/Day Years [...] on filedocumented in this encounter Care Teams First Responder Relationship Specialty Start Date End Date Verenice Rose MD PCP - General Internal Medicine 07/15/18 05/20/21 [facility], Pcp PCP - General Internal Medicine 05/21/21 documented as of this encounter
--- OUTSIDE RECORDS SUMMARY | 2024-06-27 14:46 | XMS_ITS | Encounter Summary ---
Author Organization [facility] Address [address] [place] [address] Care Team Providers Care Vending Machine Filler Name Role Phone Rachael Horton MD Primary Care Provider Verenice Fajardo MD Primary Care Provider [facility] Pcp Primary Care Provider Unavailabl e Reason for Visit * Reason Onset Date Comments refill request 03/28/2018 Encounter Details Date Type Department Care Team Description 03/28/2018 Telephone Internal Medicine - [address], [address] [place] [address] Rachael Horton MD refill request Social History Tobacco Use Types Packs/Day Years Used Date Smoking Tobacco: Former Smokeless Tobacco: Former Quit: 07/02/1964 Alcohol Use Standard Drinks/Week Comments Not Asked 0 (1 standard drink = 0.6 oz pur e alcohol) Sex Assigned at Date Recorded Not on file documented as of this encounter Miscellaneous Notes * Telephone Encounter - Valentina Delgado - 04/05/2018 12:40 PM EST Please advise patient stating [facility] not [facility] the new rx please advise thanks Please call patient when this is done. Thank you * Telephone Encounter - Rachael Horton MD - 03/28/2018 4:56 PM EST done * Telephone Encounter - America Lyon M.A. - 03/28/2018 4:43 PM EST Last seen 12/24/17 * Telephone Encounter - Valentina Delgado - 03/28/2018 11:02 AM EST Please refill this prescription patient is out and needs [facility]. Multiple attempts have been placed for this thanks so much. Please advise thanks [phone] documented in this encounter Plan of Treatment Not on file documented as of this encounter Visit Diagnoses Not on filedocumented in this encounter Care Teams Vending Machine Filler Relationship Specialty Start Date End Date Rachael Horton MD PCP - General Internal Medicine 02/24/18 07/14/18 Verenice Rose MD PCP - General Internal Medicine 07/15/18 05/20/21 [facility], Pcp PCP - General Internal Medicine 05/21/21 documented as of this encounter
--- OUTSIDE RECORDS SUMMARY | 2024-06-27 14:46 | XMS_ITS | Encounter Summary ---
Author Organization [facility] Address [address] [place] [address] Care Team Providers Care Cardiac Rehab Nurse Name Role Phone [facility], Pcp Primary Care Provider Yanci e Rachael Horton MD Primary Care Provider Verenice Fajardo MD Primary Care Provider Unavail able [facility], Pcp Primary Care Provider Yanci e Encounter Details Date Type Department Care Team Description 05/24/2017 Claims Examiner Report Medical Records [address] [place] [address] Rachael Horton MD Social History Tobacco Use Types Packs/Day [...] on filedocumented in this encounter Care Teams Cardiac Rehab Nurse Relationship Specialty Start Date End Date [facility], Pcp PCP - General Internal Medicine 02/03/16 02/23/18 Rachael Horton MD PCP - General Internal Medicine 02/24/18 07/14/18 Verenice Rose MD PCP - General Internal Medicine 07/15/18 05/20/21 [facility], Pcp PCP - General Internal Medicine 05/21/21 documented as of this encounter
--- OUTSIDE RECORDS SUMMARY | 2024-06-27 14:46 | XMS_ITS | Encounter Summary ---
Author Organization [facility] Address [address] [place] [address] Care Team Providers Care Automation Software Engineer Name Role Phone [facility], Pcp Primary Care Provider Unavailabl e Rachael oHrton MD Primary Care Provider Verenice Fajardo MD Primary Care Provider Unavail able [facility], Pcp Primary Care Provider Unavailabl e Encounter Details Date Type Department Care Team Description 04/10/2015 Outgoing Inspector Report Medical Records [address] [place] [address] Abstract, Provider Social History Tobacco Use Types Packs/Day Years Used Date Smoking Tobacco: Never Assessed Sex Assigned at Date Recorded Not on file documented as of this encounter Plan of Treatment Not on file documented as of this encounter Visit Diagnoses Not on filedocumented in this encounter Care Teams Automation Software Engineer Relationship Specialty Start Date End Date [facility], Pcp PCP - General Internal Medicine 02/03/16 02/23/18 Rachael Horton MD PCP - General Internal Medicine 02/24/18 07/14/18 Verenice Rose MD PCP - General Internal Medicine 07/15/18 05/20/21 [facility], Pcp PCP - General Internal Medicine 05/21/21 documented as of this encounter
--- OUTSIDE RECORDS SUMMARY | 2024-06-27 14:46 | XMS_ITS | Encounter Summary ---
Author Organization [facility] Address [address] [place] [address] Care Team Providers Care Latex Fashions Designer Name Role Phone Verenice Rose MD Primary Care Provider Unavail able [facility], Pcp Primary Care Provider Unavailabl e Reason for Visit * Reason Onset Date Comments Gi Outreach Colonoscopy 09/11/2020 Encounter Details Date Type Department Care Team Description 09/11/2020 Telephone Gastroenterology - [address] [place] [address] Jane Ram MD [address] [place] [id number] Gi Outreach Colonoscopy Social History Tobacco Use Types Packs/Day Years Used Date Smoking Tobacco: Former Smokeless Tobacco: Former Quit: 07/02/1964 Comments:3 years as a teenag er Alcohol Use Standard Drinks/Week Comments No 0 (1 standard drink = 0.6 oz pur e alcohol) Sex Assigned at Date Recorded Not on file documented as of this encounter Miscellaneous Notes * Telephone Encounter - Ignacia Vizcarra - 09/11/2020 2:03 PM EDT Left message for patient to book 5 year colon repeat with any provider documented in this encounter Plan of Treatment Not on file documented as of this encounter Visit Diagnoses Not on filedocumented in this encounter Care Teams Latex Fashions Designer Relationship Specialty Start Date End Date Verenice Rose MD PCP - General Internal Medicine 07/15/18 05/20/21 [facility], Pcp PCP - General Internal Medicine 05/21/21 documented as of this encounter
== END 2024-06-27 13:43 | disposition home or self-care (01) ==
LOC: HO.HMCC 12:02
PROVIDERS: PCP Internal Medicine; Visit Provider Internal Medicine
DX: J44.9 Chronic obstructive pulmonary disease, unspecified (principal); I10 Essential (primary) hypertension

== ENCOUNTER → 2024-06-27 12:02 | Outpatient (BNVA) | payer MEDICARE, SELFPAY | PROVIDERS: PCP Internal Medicine; Visit Provider Internal Medicine | DX: J44.9 Chronic obstructive pulmonary disease, unspecified (principal); I10 Essential (primary) hypertension | CPT/HCPCS: 99212 ==

== ENCOUNTER 2024-07-14 12:35 | Outpatient (AMB) | payer MEDICARE, SELFPAY ==
[2024-07-14 12:41] VITALS: BP 120/64; PULSE 80; RESP 18; TEMP 36.6; O2SAT 95; BMI 28.1
--- NOTE | 2024-07-14 12:41 | A.OFFPC_ITS ---
Vital Signs 07/14/24 12:41 Height 5 ft 5 in Weight 169 lb BMI 28.1 BP 120/64 Blood Pressure Location Rt brachial Position Sitting Respiration 18 Pulse 80 Pulse Source Pulse Oximeter Temp 97.8 F Temp Source Oral Pulse Oximetry (%) 95 Oxygen Delivery Method Room Air Intake Visit Reasons: 1 week f/u Intake Note: Pt is here today for 1 week follow up visit. Allergies meperidine [From Demerol] Allergy (Mild, Verified 07/14/24 12:45) hives paper tape Allergy (Mild, Uncoded 07/14/24 12:45) Redness of Skin Tobacco use date assessed: 06/27/24 Dental Screening Dental Screen Date: 05/10/24 HPI 1 week f/u HPI Details Patient presents for the follow-up of COPD. She denies cough wheezing or shortness or breath. She has been exercising daily, playing tennis or walking. [facility] Medical History Vitamin D deficiency Osteopenia HTN (hypertension) Rectal prolapse Surgical History Hx of tubal ligation Hx of tonsillectomy Hx of mastectomy Hx of breast reconstruction Family History Mother No problems noted. Father Throat cancer Lung cancer Prostate cancer Social History Housing: House Patient Tobacco Use Status: Never used Tobacco e-Cigarette/Vaping Use: Never Used service: No Current occupational status: retired Cognitive needs: No Hearing needs: No Vision needs: Yes Questionnaire Thrive Questionnaire Date Thrive assessed: 05/10/24 I am a: Patient What is your living situation today?: I have a steady place to live Within the past 12 months, did the food you bought not last and you didn't have the money to get more?: Never true Within the past 12 months, did you worry whether your food would run out before you got money to buy more?: Never true Do you have trouble paying for medicines?: No Do you have trouble getting transportation to medical appointments?: No Do you have trouble paying your heating and electricity bill?: No Do you have trouble taking care of your child, family member or friend?: No Do you have trouble with day-to-day activities such as bathing, preparing meals, shopping, managing finances, etc.?: No Are you currently unemployed and looking for a job?: No Are you interested in more education?: No Please select the resources that you would like help with: None Currently or been in a relationship where the following occur: No concerns reported THRIVE Score: 0 MARCELLO-7 AMB Questionnaire MARCELLO-7 Date MARCELLO - 7 assessed: 05/10/24 Source: Developed by Drs. Eleazar Gutierrez, Hanna Kevin, Chris Bill and colleagues, with an educational brian from [employer]. Review of Systems Const All systems reviewed & are unremarkable except as noted in HPI and below Eyes Reports no additional complaints Card Reports no additional complaints Resp Reports no additional complaints GI Reports no additional complaints Physical exam (Primary Care) Vital Signs: Last Vital Signs Temp 97.8 F 07/14/24 12:41 Pulse 80 07/14/24 12:41 Resp 18 07/14/24 12:41 BP 120/64 07/14/24 12:41 Pulse Ox 95 07/14/24 12:41 Oxygen Delivery Method Room Air 07/14/24 12:41 BMI result Body Mass Index 28.1 Tobacco/Smoking Status: Tobacco use Status Tobacco use date assessed 06/27/24 07/14/24 12:42 Patient Tobacco Use Status Never used Tobacco 07/14/24 12:42 e-Cigarette/Vaping Use Never Used 07/14/24 12:42 Thrive Assessment: Date of Thrive Assessment Date Thrive assessed 05/10/24 07/14/24 12:42 Currently or been in a relationship where the following occur: No concerns reported Const General: no acute distress HENMT Head: Yes normal to inspection Neck Neck: Yes supple Resp Effort & Inspection: normal respiratory effort Auscultation: no wheezes and diminished lung sounds Cardio Rhythm: regular rhythm Heart sounds: S1 normal heart sound present and S2 normal heart sound present Coding Level of Care Code Est Pt Level 3 (42457) Diagnoses COPD (chronic obstructive pulmonary disease) J44.9 HTN (hypertension) I10 Assessment & Plan Assessment & Plan (1) COPD (chronic obstructive pulmonary disease): Code(s): J44.9 - Chronic obstructive pulmonary disease, unspecified Category: Medical Plan: Continue Trelegy 200 mcg for 2 months and then restart Trelegy 100 mcg. Follow- up in 2 (2) HTN (hypertension): Code(s): I10 - Essential (primary) hypertension Category: Medical Plan: Continue losartan
== END 2024-07-14 13:12 | disposition home or self-care (01) ==
LOC: HO.HMCC 12:36
PROVIDERS: PCP Internal Medicine; Visit Provider Internal Medicine
DX: J44.9 Chronic obstructive pulmonary disease, unspecified (principal); I10 Essential (primary) hypertension

== ENCOUNTER → 2024-07-14 12:35 | Outpatient (BNVA) | payer MEDICARE, SELFPAY | PROVIDERS: PCP Internal Medicine; Visit Provider Internal Medicine | DX: J44.9 Chronic obstructive pulmonary disease, unspecified (principal); I10 Essential (primary) hypertension | CPT/HCPCS: 99212 ==

== ENCOUNTER 2024-10-27 07:55 | Outpatient (REF) | payer MEDICARE, SELFPAY ==
--- OUTSIDE RECORDS SUMMARY | 2024-10-27 07:58 | XMS_ITS | Clinical Summary ---
Author Organization [facility] Address [address] [place] [address] Care Team Providers Care Gift Packer Name Role Phone Unavailable Primary Care Provider [...] 68 08/04/2017 10:53 AM EDT Temperature 36.7 C (98.1 F) 08/04/2017 10:22 AM EDT Respiratory Rate 18 08/04/2017 10:53 AM EDT [...] Vaccine (2023-2 5 season) 2023 Influenza (#1) 2024 HPV Vaccine Aged Out No longer eligi [...] Pap Smear Discontinued Zoster (Zostavax) Discontinued Insurance [facility] FEE FOR SERVICE MEDICARE
[2024-10-27 10:36] LABS: MANUAL DIFF FLAG NO
[2024-10-27 10:41] LABS: Hematocrit 37.9 % (37.0-47.0); Hemoglobin 12.6 g/dl (12.0-16.0); Imm Gran Abs Auto 0.01 X10*3/uL (0.00-0.03); Imm Gran Pct Auto 0.2 % (0.0-0.4); Lymphocytes Absolute Auto 1.1 X10*3/uL (1.2-4.9); Mean Corpuscular HGB Conc 33.2 g/dl (31.0-35.0); Mean Corpuscular Hemoglobin 29.6 pg (27.0-33.0); Mean Corpuscular Volume 89.0 fL (80.0-98.0); NRBC Abs Auto 0.000 X10*3/uL (0.0-0.012); NRBC Pct Auto 0.0 /100WBC (0.0-0.2); Platelet Count 126 X10*3/uL (160-400); Red Blood Count 4.26 X10*6/uL (4.20-5.50); White Blood Count 4.0 X10*3/uL (4.8-10.8)
[2024-10-27 11:18] LABS: Alanine Aminotransferase 20 U/L (0-31); Albumin Level 4.3 g/dL (3.5-5.0); Alkaline Phosphatase 51 U/L (39-117); Anion Gap 12 (12-20); Aspartate Amino Transferase 23 U/L (5-31); Blood Urea Nitrogen 21 mg/dL (9-16); Calcium 9.2 mg/dL (8.4-10.2); Carbon Dioxide 27 mmol/L (22-29); Chloride 106 mmol/L (96-108); Cholesterol 219 mg/dL (<200); Estimated Glomerular Filt Rate > 60; HDL Cholesterol 54 mg/dL (>40); Potassium 4.2 mmol/L (3.3-5.1); Sodium 141 mmol/L (135-145); Total Protein 6.5 g/dL (6.5-8.0); Triglycerides 147 mg/dL (<150)
== END 2024-10-27 07:56 | disposition home or self-care (01) ==
LOC: HO.HMGCLDS 07:55
PROVIDERS: PCP Internal Medicine; Visit Provider Internal Medicine
DX: I10 Essential (primary) hypertension (principal); E55.9 Vitamin D deficiency, unspecified; E78.5 Hyperlipidemia, unspecified; J44.9 Chronic obstructive pulmonary disease, unspecified
CPT/HCPCS: 36415; 80053; 80061; 82306; 85025

== ENCOUNTER 2024-11-06 09:29 | Outpatient (AMB) | payer MEDICARE, SELFPAY ==
--- NOTE | 2024-11-06 09:33 | MHC.PC.OV ---
Intake Visit Reasons: [id number] Allergies meperidine (From Demerol) Allergy (Mild, Verified 07/14/24 12:45) hives paper tape Allergy (Mild, Uncoded 07/14/24 12:45) Redness of Skin Tobacco use date assessed: 06/27/24 Dental Screening Dental Screen Date: 05/10/24 [facility] Medical History Vitamin D deficiency Osteopenia HTN (hypertension) Rectal prolapse Surgical History Hx of tubal ligation Hx of tonsillectomy Hx of mastectomy Hx of breast reconstruction Family History Mother No problems noted. Father Throat cancer Lung cancer Prostate cancer Social History Housing: House Patient Tobacco Use Status: Never used Tobacco e-Cigarette/Vaping Use: Never Used service: No Current occupational status: retired Cognitive needs: No Hearing needs: No Vision needs: Yes Questionnaire Thrive Questionnaire Date Thrive assessed: 05/10/24 I am a: Patient What is your living situation today?: I have a steady place to live Within the past 12 months, did the food you bought not last and you didn't have the money to get more?: Never true Within the past 12 months, did you worry whether your food would run out before you got money to buy more?: Never true Do you have trouble paying for medicines?: No Do you have trouble getting transportation to medical appointments?: No Do you have trouble paying your heating and electricity bill?: No Do you have trouble taking care of your child, family member or friend?: No Do you have trouble with day-to-day activities such as bathing, preparing meals, shopping, managing finances, etc.?: No Are you currently unemployed and looking for a job?: No Are you interested in more education?: No Please select the resources that you would like help with: None Currently or been in a relationship where the following occur: No concerns reported THRIVE Score: 0 MARCELLO-7 AMB Questionnaire MARCELLO-7 Date MARCELLO - 7 assessed: 05/10/24 Source: Developed by Drs. Eleazar Gutierrez, Hanna Kevin, Chris Bill and colleagues, with an educational brian from [employer]. Physical exam (Primary Care) Tobacco/Smoking Status: Tobacco use Status Tobacco use date assessed 06/27/24 07/14/24 12:42 Patient Tobacco Use Status Never used Tobacco 07/14/24 12:42 e-Cigarette/Vaping Use Never Used 07/14/24 12:42 Thrive Assessment: Date of Thrive Assessment Date Thrive assessed 05/10/24 07/14/24 12:42 Currently or been in a relationship where the following occur: No concerns reported Coding
[2024-11-06 09:36] VITALS: BP 118/66; PULSE 51; RESP 18; TEMP 36.6; O2SAT 95; BMI 27.5
--- NOTE | 2024-11-06 09:36 | AM.OFFVISMDC ---
Intake Vital Signs 11/06/24 09:36 Height 5 ft 5 in Weight 165 lb BMI 27.5 BP 118/66 Blood Pressure Location Rt brachial Position Sitting Respiration 18 Pulse 51 Pulse Source Pulse Oximeter Temp 97.8 F Temp Source Oral Pulse Oximetry (%) 95 Oxygen Delivery Method Room Air Intake Visit Reasons: [id number] Intake Note: Pt is here today for AWV. Allergies meperidine (From Demerol) Allergy (Mild, Verified 11/06/24 09:59) hives paper tape Allergy (Mild, Uncoded 11/06/24 09:59) Redness of Skin HPI [id number] HPI Details Initiated the conversation about Advanced Directives. Advanced Directives help? patients prepare for current and future decisions about their medical treatment? and place of care. Discussed with patient that it is a process where a patients? current condition and prognosis are reviewed, their wishes for information? regarding their illness are elicited, and likely medical dilemmas are presented? and options discussed. The form can be amended as needed, reviewed yearly and? make changes as needed IPPE/AWV ? year old presents? for her ? Annual? Wellness Visit, initial visit.? Medical / Social History Reviewed? Past Medical History ?Yes? . ? [place]? of Care / Care Team list updated ?Yes . ? Surgical/Hospitalization? History ?Yes . ? Current Medications? (including OTC and supplements) ?Yes . ? Family History ?Yes? . ? Tobacco? Control form ?Yes . ? AUDIT-C (Alcohol use) form? ?Yes . ? Illicit drug use in Social? History ?Yes . ? Current diagnosis of? depression? ?No ? Appropriate PHQ2/PHQ9? completed ?Yes . ? Data entered by ?Medical? Field Operations Technician and reviewed by provider ? Fall Risk ? Fall? History? Have you had any falls with? injury in the past year? ?No . ? Have you had two or more? falls in the past year? ?No . ? Fall Risk Assessment: ?No? falls in the past year . ? HRA filled out by? the patient, reviewed by Provider and scanned. ? IPPE/AWV ? Balance? [place]berg? ?Yes . ? Tandem? walk ?Yes . ? Walk and? Turn ?Yes . ? Rise from? sit to stand ?Yes . ?Vision? Corrective? lens ?Yes ? Vision? screen ? Up-to-date, has an appointment [] for vision? screening and glaucoma screening ?Hearing? Whisper? test ?pass .? Initiated the conversation about Advanced Directives. Advanced Directives help? patients prepare for current and future decisions about their medical treatment? and place of care. Discussed with patient that it is a process where a patients? current condition and prognosis are reviewed, their wishes for information? regarding their illness are elicited, and likely medical dilemmas are presented? and options discussed. The form can be amended as needed, reviewed yearly and? make changes as needed Written? Plan?Completed. See Patient? Documents. [facility] Medical History (Updated 11/06/24 @ 15:54 by Saadia Trotter MD) COPD (chronic obstructive pulmonary disease) Colon polyps Thrombocytopenia Hyperlipidemia Vitamin D deficiency Osteopenia HTN (hypertension) Rectal prolapse Surgical History Hx of tubal ligation Hx of tonsillectomy Hx of mastectomy Hx of breast reconstruction Family History Mother No problems noted. Father Throat cancer Lung cancer Prostate cancer Social History Housing: House Patient Tobacco Use Status: Never used Tobacco e-Cigarette/Vaping Use: Never Used service: No Current occupational status: retired Cognitive needs: No Hearing needs: No Vision needs: Yes Questionnaire Medicare Wellness Checkup [age] What gender do you identify with?: female During the past 4 weeks, how much have you been bothered by emotional problems such as feeling anxious, depressed, irritable, sad or downhearted, and blue?: not at all During the past 4 weeks, has your physical & emotional health limited your social activities with family, friends, neighbors, or groups?: not at all During the past 4 weeks, how much bodily pain have you generally had?: very mild pain During the past 4 weeks, was someone available to help you if you needed & wanted help?: yes, as much as I wanted During the past 4 weeks, what was the hardest physical activity you could do for at least 2 minutes?: very heavy Can you get to places out of walking distance without help? (For eg., can you travel alone on buses, taxis or drive your car?): Yes Can you go shopping for groceries or clothes without someone's help?: Yes Can you prepare your own meals?: Yes Can you do your housework without help?: Yes Because of any health problems, do you need the help of another person with your personal care needs such as eating, bathing, dressing or getting around the house?: No Can you handle your own money without help?: Yes During the past 4 weeks, how would you rate your health in general?: excellent During the past 4 weeks how have things been going for you?: good & bad parts about equal Are you having difficulties driving your car?: no Do you always fasten your seat belt when you are in a car?: yes, usually During past 4 weeks, have you been bothered by the following: never: Falling or dizzy when standing up, Sexual problems?, Trouble eating well?, Teeth or denture problems? and Problems using the telephone? and seldom: Tiredness or fatigue? Have you fallen 2 or more times in the past year?: No Are you afraid of falling?: No Are you a smoker?: no During the past 4 weeks, how many drinks of wine, beer, or other alcoholic beverages did you have?: 1 drink or less per week Do you exercise for about 20 minutes 3 or more times a week?: yes, most of the time Have you been given information to help with the following?: no: Hazards in your house that might hurt you? and no: Keeping track of your medications? How often do you have trouble taking medicines the way you have been told to take them?: I always take medicine as prescribed How confident are you that you can control & manage most of your health problems?: very confident What is your race?: White Mini Mental State Exam (MMSE) Orientation What is the (year) (season) (date) (day) (month)?: year, season, date, day and month Where are we (state) (county) (town or city) (hospital) (floor)?: state, county, town or city, hospital/clinic and floor Registration Name of 3 unrelated objects clearly and slowly, then ask patient to repeat all 3 of them. (1st repeat determines score. Make sure they can repeat all three): object 1, object 2 and object 3 Attention & Calculation (CHOOSE ONE) Spell WORLD backwards (DLROW): 5 letters Recall Ask patient to repeat the 3 items from question #3.: object 1, object 2 and object 3 Language Show patient a wristwatch & ask what it is. Repeat for pencil.: watch and pencil Ask the patient to repeat the phrase 'No ifs, ands, or buts' after you.: correct Ask the patient to 'take a piece of paper with their right hand' 'fold paper in half' 'place paper on floor': take paper in right hand, fold paper in half and place paper on floor Print the sentence 'CLOSE YOUR EYES' on a piece. If patient actually closes eyes then score.: followed written direction Give patient a blank piece of paper & ask to write a sentence. Score if it contains a noun & verb.: sentence contains subject and verb Score Score: 29 PHQ-9 Over the last 2 weeks, how often have you been bothered by any of the following problems? 1. Little interest or pleasure in doing things: not at all 2. Feeling down, depressed, or hopeless: not at all 3. Trouble falling or staying asleep, or sleeping too much: several days 4. Feeling tired or having little energy: several days 5. Poor appetite or overeating: not at all 6. Feeling bad about yourself - or that you are a failure or have let yourself or your family down: not at all 7. Trouble concentrating on things, such as reading the newspaper or watching television: not at all 8. Moving or speaking so slowly that other people could have noticed. Or the opposite - being so fidgety or restless that you have been moving around a lot more than usual: not at all 9. Thoughts that you would be better off or of hurting yourself in some way: not at all Total score: 2 Depression Screening Interpretation: Negative Depression Screening Done: Yes 54348 - PHQ-9 Billing: Yes Source: Developed by Drs. Eleazar Gutierrez, Hanna Kevin, Chris Bill and colleagues, with an educational brian from [email or web address]. Review of Systems Const All systems reviewed & are unremarkable except as noted in HPI and below Eyes Reports no additional complaints ENT Reports no additional complaints Card Reports no additional complaints Resp Reports no additional complaints GI Reports no additional complaints Reports no additional complaints Physical Exam Vital Signs: Last Vital Signs Temp 97.8 F 11/06/24 09:36 Pulse 51 11/06/24 09:36 Resp 18 11/06/24 09:36 BP 118/66 11/06/24 09:36 Pulse Ox 95 11/06/24 09:36 Oxygen Delivery Method Room Air 11/06/24 09:36 BMI result Body Mass Index 27.5 Const General: no acute distress HEENT Head: Yes normal to inspection Ears: TM's normal bilaterally Eyes General: appearance normal, both eyes and all related structures Neck Neck: Yes no lymphadenopathy and Yes supple Resp Effort & Inspection: normal respiratory effort Auscultation: clear to auscultation bilaterally Cardio Rhythm: regular rhythm Heart sounds: S1 normal heart sound present and S2 normal heart sound present GI Inspection: Yes normal to inspection Palpation (GI): Soft to palpation Percussion: Yes normal to percussion Auscultation: normal bowel sounds Extrem General: Yes no clubbing, cyanosis or edema Assessment & Plan Assessment & Plan (1) HTN (hypertension): Code(s): I10 - Essential (primary) hypertension Plan: Continue losartan (2) Hyperlipidemia: Comment: diet controlled, pt declined statins Code(s): E78.5 - Hyperlipidemia, unspecified Plan: Continue low-cholesterol diet and fish oil supplement (3) COPD (chronic obstructive pulmonary disease): Comment: Controlled on Trelegy Code(s): J44.9 - Chronic obstructive pulmonary disease, unspecified Plan: Patient will switch Trelegy from 200 to 100 during the summertime when she has less symptoms. Patient will follow-up in February (4) Annual physical exam: Code(s): Z00.00 - Encounter for general adult medical examination without abnormal findings Plan: Well-balanced diet regular physical activity discussed with the pt (5) Osteopenia: Comment: pt declined DEXA Code(s): M85.80 - Other specified disorders of bone density and structure, unspecified site Plan: Continue vitamin-D supplement and weight-bearing exercises. Patient declined DEXA Medications: New Trelegy Ellipta 100-62.5-25 mcg (uzmahvplopa-sfvsnzqap-mkvmhphl) 1 inh inhalation DAILY 180 ea 3RF NS Quality Reporting (2019) Depression/Bipolar (159/160/161/177) PHQ-9: Total score: 2 Coding Level of Care Code Medicare Subsequent (G0439) Diagnoses HTN (hypertension) I10 Hyperlipidemia E78.5 COPD (chronic obstructive pulmonary disease) J44.9 Annual physical exam Z00.00 Osteopenia M85.80 CPT Codes Advance Care Planning - Advance Care Planning discussion: On file, no changes ([id number]) Advance Care Planning - Time spent: 1-15 minutes, on File ([id number]) Additional Codes PHQ-9 - 09672 - PHQ-9 Billing: Yes ([id number]) Advance Care Planning Advance Care Planning discussion: On file, no changes Forms completed: Health Care Proxy Time spent: 1-15 minutes, on File Did not discuss due to Cultural/Spiritual beliefs: Yes
--- OUTSIDE RECORDS SUMMARY | 2024-11-06 10:00 | XMS_ITS | Clinical Summary ---
Author Organization [facility] Address [address] [place] [address] Care Team Providers Care Perianesthesia Manager Name Role Phone Unavailable Primary Care Provider [...] Pap Smear Discontinued Zoster (Zostavax) Discontinued Insurance [facility] FEE FOR SERVICE MEDICARE
--- OUTSIDE RECORDS SUMMARY | 2024-11-06 10:00 | XMS_ITS | Encounter Summary ---
Author Organization [facility] Address [address] [place] [address] Phone Care Team Providers Care Lamination Inspector Name Role Phone Pcp, Unknown Primary Care Provider Saadia Paz MD Primary Care Provider [phone] Encounter Details Date Type Department Care Team (Late st Contact Info) Description 10/02/2022 Telephone [facility] [address] [address] Jose Savage MD [address] [address] [email or web address] Social History Tobacco Use Types Packs/Day Years Used Date Smoking Tobacco: Former Cigarettes Smokeless Tobacco: Never Comments:Quit smokin04/19 Alcohol Use Standard Drinks/Week Comments Yes 0 (1 standard drink = 0.6 oz pur e alcohol) 1-2 drinks per week. Education Answer Date Recorded Are you interested in more education? Not on tree e 08/13/2022 Are you concerned about learning? Not on file 08/13/2022 No 08/13/2022 No 08/13/2022 Digital Access Answer Date Recorded No 09/13/2022 No 09/13/2022 Reliable internet access at home? Not on file 09/13/2022 Device with a working camera? Not on file Comments No Sex and Gender Information Value Date Recorded Sex Assigned at Female 03/28/2019 3:40 PM EST Legal Sex Female 6:49 PM EST Gender Identity Female 03/28/2019 3:40 PM EST Sexual Orientation Straight 08/13/2022 9: 29 AM EDT documented as of this encounter Plan of Treatment Upcoming Encounters Date Type Department Care Team (Late st Contact Info) Description 02/26/2025 1:00 PM EST Office Visit [facility] [address]rd [place] [address] Felix Babin MD [address] [place] [phone] [email or web address] 05/08/2025 1:30 PM EST Office Visit [facility] [address] [facility] 1st [place] [address] Coco Renteria MD [address] [place] [address], [address] [address] [email or web address] documented as of this encounter Visit Diagnoses Not on filedocumented in this encounter Additional Health Concerns Assessment Noted Time PHQ-2 Depression Total Score: 0 02/22/20 18 9:51 AM EST documented as of this encounter Care Teams Lamination Inspector Relationship Specialty Start Date End Date Pcp, Unknown PCP - General 06/06/21 03/30/23 Saadia Trotter MD [address] [facility] [place] [address] PCP - General Internal Medicine 03/31/23 documented as of this encounter Additional Source Comments The information contained in this document represents components of the legal health record. It is not the complete legal health record.[facility]
== END 2024-11-06 10:47 | disposition home or self-care (01) ==
LOC: HO.HMCC 09:30
PROVIDERS: PCP Internal Medicine; Visit Provider Internal Medicine
DX: Z00.00 Encounter for general adult medical examination without abnormal findings (principal); J44.9 Chronic obstructive pulmonary disease, unspecified; I10 Essential (primary) hypertension; E78.5 Hyperlipidemia, unspecified; M85.80 Other specified disorders of bone density and structure, unspecified site

== ENCOUNTER → 2024-11-06 09:29 | Outpatient (BNVA) | payer MEDICARE, SELFPAY | PROVIDERS: PCP Internal Medicine; Visit Provider Internal Medicine | DX: Z00.00 Encounter for general adult medical examination without abnormal findings (principal); I10 Essential (primary) hypertension; E78.5 Hyperlipidemia, unspecified; J44.9 Chronic obstructive pulmonary disease, unspecified; M85.80 Other specified disorders of bone density and structure, unspecified site | CPT/HCPCS: 96127 ==

== ENCOUNTER 2025-03-06 13:15 | Outpatient (REF) | payer MEDICARE, SELFPAY ==
--- OUTSIDE RECORDS SUMMARY | 2025-03-07 06:26 | XMS_ITS | Encounter Summary ---
Author Organization [facility] Address [facility] [address] [place] [address] Phone Care Team Providers Care Network Support Name Role Phone Rachael Horton MD Primary Care Provide r Verenice Traore MD Primary Care Provider [phone] Pcp, Unknown Primary Care Provider Saadia Paz MD Primary Care Provider [phone] Encounter Details Date Type Department Care Team (Late st Contact Info) Description 03/18/2016 Ancillary Orders [facility]- Breast Imaging, [address] [place] [address] [place] [address] Rachael Horton MD [address] [place] [address] Screening breast examination Social History Tobacco Use Types Packs/Day Years Used Date Smoking Tobacco: Former Cigarettes Comments:Quit smokin04/19 Comments Unknown Sex and Gender Information Value Date Recorded Sex Assigned at Female 03/28/2019 3:40 PM EST Legal Sex Female 6:49 PM EST Gender Identity Female 03/28/2019 3:40 PM EST Sexual Orientation Straight 08/13/2022 9: 29 AM EDT documented as of this encounter Plan of Treatment Upcoming Encounters Date Type Department Care Team (Late st Contact Info) Description 04/23/2025 1:15 PM EST Office Visit [facility] [address] [place] [address] [facility] 10th [place] [address] Jude Rivera MD [address] [place] [address] [email or web address] 05/09/2025 12:45 PM EST Office Visit [address] [address] Coco Renteria MD [address] [place] [phone] [email or web address] documented as of this encounter Results * BI MAMMOGRAM SCREENING WITH TOMOSYNTHESIS WITH CAD (RIGHT) (03/18/2016 8:09 AM EST) Anatomical Region Laterality Modality Breast Right, Breast Bilateral Right M ammography Impressions 03/18/2016 8:30 AM EST No evidence of malignancy. No significant change from prior examinations. Result Code: BI-RADS 1 Negative. Recommendations: Mammography Screening Recommendation Due Date: 12 Months The recommendation above has been entered into a reminder system to monitor and facilitate patient compliance. Narrative 03/18/2016 8:30 AM EST RIGHT DIGITAL MAMMOGRAM: The patient presents for annual mammography status post left mastectomy. Examination is performed with digital mammography and computer aided detection as well as tomosynthesis. Comparison is made with previous mammographic views performed on 02/05/2014 and 02/25/2015. Findings: There are scattered fibroglandular densities. There are no suspicious masses, suspicious calcifications, areas of distortion or other signs of malignancy. Procedure Note Socorro Barrett MD - 03/18/2016 RIGHT DIGITAL MAMMOGRAM: The patient presents for annual mammography status post left mastectomy.Examination is performed with digital mammography and computer aideddetection as well as tomosynthesis. Comparison is made with previousmammographic views performed on 02/05/2014 and 02/25/2015. Findings: There are scattered fibroglandular densities. There are nosuspicious masses, suspicious calcifications, areas of distortion or othersigns of malignancy. IMPRESSION: No evidence of malignancy. No significant change from priorexaminations. Result Code: BI-RADS 1 Negative. Recommendations: Mammography Screening Recommendation Due Date: 12 Months The recommendation above has been entered into a reminder system tomonitor and facilitate patient compliance. Rachael Horton MD IMG MG EXAMS Final Result documented in this encounter Visit Diagnoses Diagnosis Screening breast examination Other screening breast examination Screening breast examination Other screening breast examination documented in this encounter Additional Health Concerns Infection Onset Date Last Indicated Resolved Time COVID-19 04/12/2021 04/12/2021 05/03/2021 1:21 AM EST documented as of this encounter Care Teams Network Support Relationship Specialty Start Date End Date Rachael Horton MD [address] [place] [phone] PCP - General Geriatric Psychiatry 03/17/16 01/10/19 Verenice Traore MD [address] [place] [id number] PCP - General Internal Medicine 01/11/19 06/05/21 Pcp, Unknown PCP - General 06/06/21 03/30/23 Saadia Trotter MD [address] [place] [phone] PCP - General Internal Medicine 03/31/23 documented as of this encounter Additional Source Comments The information contained in this document represents components of the legal health record. It is not the complete legal health record.[facility]
--- OUTSIDE RECORDS SUMMARY | 2025-03-07 06:26 | XMS_ITS | Encounter Summary ---
Author Organization [facility] Address [address] [place] [address] Phone Care Team Providers Care Weather Observer Name Role Phone Pcp, Unknown Primary Care Provider Saadia Paz MD Primary Care Provider [phone] Encounter Details Date Type Department Care Team (Late st Contact Info) Description 10/02/2022 Telephone [facility] [address] [address] Jose Savage MD [address] [address] [email or web address] Social History Tobacco Use Types Packs/Day Years [...] Description 04/23/2025 1:15 PM EST Office Visit [facility] [address] [facility] 10th [place] [address] Jude Rivera MD [address] [place] [address] [email or web address] 05/09/2025 12:45 PM EST Office Visit [facility] [address] [address] Coco Renteria MD [address] [place] [phone] [email or web address] documented as of this encounter Visit Diagnoses Not on filedocumented in this encounter Additional Health Concerns Assessment Noted Time PHQ-2 Depression Total Score: 0 02/22/20 18 9:51 AM EST documented as of this encounter Care Teams Weather Observer Relationship Specialty Start Date End Date Pcp, Unknown PCP - General 06/06/21 03/30/23 Saadia Trotter MD [address] [place] [id number] PCP - General Internal Medicine 03/31/23 documented as of this encounter Additional Source Comments The information contained in this document represents components of the legal health record. It is not the complete legal health record.[facility]
--- OUTSIDE RECORDS SUMMARY | 2025-03-07 06:27 | XMS_ITS | Encounter Summary ---
Author Organization [facility] Address [address] [place] [address] Phone Care Team Providers Care Ink Jet Operator Name Role Phone Saadia Trotter MD Primary Care Provider [phone] Encounter Details Date Type Department Care Team (Late st Contact Info) Description 06/21/2024 Procedure Pass [facility]- Breast Imaging- [address] [address] Social History Tobacco Use Types Packs/Day Years [...] PM EST Office Visit [facility] [address] [facility] 10th [place] [address] Jude Rivera MD [address] [place] [address] [email or web address] 05/09/2025 12:45 PM EST Office Visit [facility] [address] [address] Coco Renteria MD [address] [place] [phone] [email or web address] documented as of this encounter Visit Diagnoses Not on filedocumented in this encounter Additional Health Concerns Assessment Noted Time PHQ-2 Depression Total Score: 0 02/22/20 18 9:51 AM EST documented as of this encounter Care Teams Ink Jet Operator Relationship Specialty Start Date End Date Saadia Trotter MD [address] [place] [id number] PCP - General Internal Medicine 03/31/23 documented as of this encounter Additional Source Comments The information contained in this document represents components of the legal health record. It is not the complete legal health record.[facility]
--- OUTSIDE RECORDS SUMMARY | 2025-03-07 06:27 | XMS_ITS | Encounter Summary ---
Author Organization [facility] Address [address] [facility] [address] [place] [address] Phone Care Team Providers Care Electronic Component Processor Name Role Phone Saadia Trotter MD Primary Care Provider [phone] Encounter Details Date Type Department Care Team (Late st Contact Info) Description 06/21/2024 Ancillary Orders [facility] Central Scheduling [address] [place] [address] Saadia Trotter MD [facility] [place] [address] Visit for screening mammogram (Primary Dx) Social History Tobacco Use Types Packs/Day Years [...] PM EST Office Visit [facility] [address] [facility] 10th [place] [address] Jude Rivera MD [address] [place] [address] [email or web address] 05/09/2025 12:45 PM EST Office Visit DA [address] [address] Coco Renteria MD [address] [place] [address] [email or web address] documented as of this encounter Visit Diagnoses Diagnosis Visit for screening mammogram- Primary documented in this encounter Additional Health Concerns Assessment Noted Time PHQ-2 Depression Total Score: 0 02/22/20 18 9:51 AM EST documented as of this encounter Care Teams Electronic Component Processor Relationship Specialty Start Date End Date Saadia Trotter MD [address] [place] [address] PCP - General Internal Medicine 03/31/23 documented as of this encounter Additional Source Comments The information contained in this document represents components of the legal health record. It is not the complete legal health record.[facility]
--- OUTSIDE RECORDS SUMMARY | 2025-03-07 06:27 | XMS_ITS | Encounter Summary ---
Author Organization [facility] Address [facility] Setup [facility] [address] [place] [address] Phone Care Team Providers Care Supervisor Agency Appointments Name Role Phone Verenice Traore MD Primary Care Provider [phone] Pcp, Unknown Primary Care Provider Saadia Paz MD Primary Care Provider [phone] Encounter Details Date Type Department Care Team (Late st Contact Info) Description 02/09/2020 Ancillary Orders [facility] Central Scheduling [address] [place] [address] Verenice Traore MD [address] [place] [address] Visit for screening mammogram Social History Tobacco Use Types Packs/Day Years Used Date Smoking Tobacco: Former Cigarettes Smokeless Tobacco: Never Comments:Quit smokin04/19 Alcohol Use Standard Drinks/Week Comments Yes 0 (1 standard drink = 0.6 oz pur e alcohol) 1-2 drinks per week. Comments No Sex and Gender Information Value [...] Description 04/23/2025 1:15 PM EST Office Visit [facility] [address] [facility] 10th [place] [address] Jude Rivera MD [address] [place] [address] [email or web address] 05/09/2025 12:45 PM EST Office Visit [address] [address] Coco Renteria MD [address] [place] [address] [email or web address] documented as of this encounter Results * BI MAMMOGRAM SCREENING WITH TOMOSYNTHESIS WITH CAD (RIGHT) (05/01/2020 10:45 AM EST) Anatomical Region Laterality Modality Breast Right, Breast Bilateral Right M ammography 05/01/2020 4:02 PM EST Impressions 05/01/2020 4:03 PM EST No mammographic evidence of malignancy. Routine screening mammography is recommended in one year. OVERALL Assessment: BI-RADS 1 Negative. The recommendation above has been entered into a reminder system to monitor and facilitate patient compliance. Narrative 05/01/2020 4:03 PM EST BI MAMMOGRAM SCREENING WITH TOMOSYNTHESIS WITH CAD (RIGHT): Reason for exam: Screening. Prior left mastectomy for breast cancer. No new breast complaints. Examination is performed with digital mammography and computer aided detection as well as tomosynthesis. Comparison is made with prior mammograms . BREAST DENSITY: There are scattered fibroglandular densities. FINDINGS: Right Breast: There are no suspicious masses, calcifications, or other abnormalities noted. Procedure Note Conchita Leahy MD - 05/01/2020 BI MAMMOGRAM SCREENING WITH TOMOSYNTHESIS WITH CAD (RIGHT): Reason for exam: Screening. Prior left mastectomy for breast cancer. No new breastcomplaints. Examination is performed with digital mammography and computer aideddetection as well as tomosynthesis. Comparison is made with prior mammograms . BREAST DENSITY: There are scattered fibroglandular densities. FINDINGS: Right Breast: There are no suspicious masses, calcifications,or other abnormalities noted. IMPRESSION: No mammographic evidence of malignancy. Routine screening mammography isrecommended in one year. OVERALL Assessment: BI-RADS 1 Negative. The recommendation above has been entered into a reminder system tomonitor and facilitate patient compliance. Verenice Traore MD IMG MG EXAMS Final Result documented in this encounter Visit Diagnoses Diagnosis Visit for screening mammogram Visit for screening mammogram documented in this encounter Additional Health Concerns Infection Onset Date Last Indicated Resolved Time COVID-19 04/12/2021 04/12/2021 05/03/2021 1:21 AM EST Assessment Noted Time PHQ-2 Depression Total Score: 0 02/22/20 9:51 AM EST documented as of this encounter Care Teams Supervisor Agency Appointments Relationship Specialty Start Date End Date Verenice Traore MD [address] [place] [address] PCP - General Internal Medicine 01/11/19 06/05/21 Pcp, Unknown PCP - General 06/06/21 03/30/23 Saadia Trotter MD [address] [place] [address] PCP - General Internal Medicine 03/31/23 documented as of this encounter Additional Source Comments The information contained in this document represents components of the legal health record. It is not the complete legal health record.[facility]
--- OUTSIDE RECORDS SUMMARY | 2025-03-07 06:27 | XMS_ITS | Encounter Summary ---
Author Organization [facility] Address [facility] [address] [place] [address] Phone Care Team Providers Care Cell Attendant Name Role Phone Verenice Traore MD Primary Care Provider [phone] Pcp, Unknown Primary Care Provider Saadia Paz MD Primary Care Provider Encounter Details Date Type Department Care Team (Late st Contact Info) Description 01/11/2019 Ancillary Orders [facility] Central Scheduling [address] [place] [address] Verenice Traore MD [address] [place] [address] Visit for screening mammogram Social History Tobacco [...] Description 04/23/2025 1:15 PM EST Office Visit [facility] [place] [address] [facility] 10th [place] [address] Jude Rivera MD [address] [place] [address] [email or web address] 05/09/2025 12:45 PM EST Office Visit [address] [address] Coco Renteria MD [address] [place] [address] [email or web address] documented as of this encounter Results * BI MAMMOGRAM SCREENING WITH TOMOSYNTHESIS WITH CAD (RIGHT) (03/29/2019 10:15 AM EST) Anatomical Region Laterality Modality Breast Right, Breast Bilateral Right M ammography 04/02/2019 9:41 AM EST Impressions 04/02/2019 9:46 AM EST No mammographic findings suspicious for malignancy in the right breast. Status post left mastectomy. No significant change from prior examinations. Recommend routine annual mammography. OVERALL Assessment: BI-RADS 1 Negative. The recommendation above has been entered into a reminder system to monitor and facilitate patient compliance. Narrative 04/02/2019 9:46 AM EST BI MAMMOGRAM SCREENING WITH TOMOSYNTHESIS WITH CAD (RIGHT) HISTORY: The patient presents for annual mammography. History of left breast cancer status post left mastectomy in April 2010. Examination is performed with digital mammography and computer aided detection as well as tomosynthesis. Comparison is made to 03/22/2018 and previous dating back to 03/18/2016. FINDINGS: Breast Density: There are scattered fibroglandular densities. No suspicious mass or suspicious cluster of microcalcifications has developed in the right breast. Procedure Note Simone Collier MD - 04/02/2019 BI MAMMOGRAM SCREENING WITH TOMOSYNTHESIS WITH CAD (RIGHT) HISTORY: The patient presents for annual mammography. History of leftbreast cancer status post left mastectomy in April 2010. Examination is performed with digital mammography and computer aideddetection as well as tomosynthesis. Comparison is made to 03/22/2018 and previous dating back to 03/18/2016. FINDINGS: Breast Density: There are scattered fibroglandular densities.No suspicious mass or suspicious cluster of microcalcifications has developedin the right breast. IMPRESSION: No mammographic findings suspicious for malignancy in the right breast. Status post left mastectomy. No significant change from prior examinations. Recommend routine annual mammography. OVERALL Assessment: BI-RADS 1 Negative. The recommendation [...] documented as of this encounter Care Teams Cell Attendant Relationship Specialty Start Date End Date Verenice Traore MD [address] [place] [address] PCP - General Internal Medicine 01/11/19 06/05/21 Pcp, Unknown PCP - General 06/06/21 03/30/23 Saadia Trotter MD [address] [place] [address] PCP - General Internal Medicine 03/31/23 documented as of this encounter Additional Source Comments The information contained in this document represents components of the legal health record. It is not the complete legal health record.[facility]
--- OUTSIDE RECORDS SUMMARY | 2025-03-07 06:27 | XMS_ITS | Encounter Summary ---
Author Organization [facility] Address [facility] [employer] [facility] [address] [place] [address] Phone Care Team Providers Care Airplane Dispatcher Name Role Phone Verenice Traore MD Primary Care Provider [phone] Pcp, Unknown Primary Care Provider Saadia Paz MD Primary Care Provider [phone] Encounter Details Date Type Department Care Team (Late st Contact Info) Description 02/09/2020 Procedure [facility]- Breast Imaging- [address] [address] Social History Tobacco Use Types Packs/Day Years [...] Description 04/23/2025 1:15 PM EST Office Visit [address] [address] Jude Rivera MD [address] [place] [address] [email or web address] 05/09/2025 12:45 PM EST Office Visit [facility] [place] [address] [address] Coco Renteria MD [address] [place] [address] [email or web address] documented as of this encounter Visit Diagnoses Not on filedocumented in this encounter Additional Health Concerns Infection Onset Date Last Indicated Resolved Time COVID-19 04/12/2021 04/12/2021 05/03/2021 1:21 AM EST Assessment Noted Time PHQ-2 Depression Total Score: 0 02/22/20 18 9:51 AM EST documented as of this encounter Care Teams Airplane Dispatcher Relationship Specialty Start Date End Date Verenice Traore MD [address] [place] [address] PCP - General Internal Medicine 01/11/19 06/05/21 Pcp, Unknown PCP - General 06/06/21 03/30/23 Saadia Trotter MD [address] [place] [address] PCP - General Internal Medicine 03/31/23 documented as of this encounter Additional Source Comments The information contained in this document represents components of the legal health record. It is not the complete legal health record.[facility]
--- OUTSIDE RECORDS SUMMARY | 2025-03-07 06:27 | XMS_ITS | Encounter Summary ---
Author Organization [facility] Address [facility] [address] [place] [address] Phone Care Team Providers Care Rn Document Improvement Name Role Phone Rachael Horton MD Primary Care Provide r Verenice Traore MD Primary Care Provider [phone] Pcp, Unknown Primary Care Provider Saadia Paz MD Primary Care Provider [phone] Encounter Details Date Type Department Care Team (Late st Contact Info) Description 03/18/2016 Ancillary Orders [facility] Central Scheduling [address] [place] [address] Rachael Horton MD [address] [place] [address] Osteopenia Social History Tobacco Use Types Packs/Day Years [...] PM EST Office Visit [facility] [address] [facility] 10th [place] [address] Jude Rivera MD [address] [place] [address] [email or web address] 05/09/2025 12:45 PM EST Office Visit [facility] [address] [address] Coco Renteria MD [address] [place] [address], [address] [address] [email or web address] Scheduled Orders Name Type Priority Associated Diagnoses Orde r Schedule DXA Monitoring Imaging Routine Osteopenia Expected: 03/18/2016, Expires: 03/18/2018 documented as of this encounter Visit Diagnoses Diagnosis Osteopenia Disorder of bone and cartilage, unspecified documented in this encounter Additional Health Concerns Infection Onset Date Last Indicated Resolved Time COVID-19 04/12/2021 04/12/2021 05/03/2021 1:21 AM EST documented as of this encounter Care Teams Rn Document Improvement Relationship Specialty Start Date End Date Rachael Horton MD [address] [place] [address] PCP - General Geriatric Psychiatry 03/17/16 01/10/19 Verenice Traore MD [address] [place] [address] PCP - General Internal Medicine 01/11/19 06/05/21 Pcp, Unknown PCP - General 06/06/21 03/30/23 Saadia Trotter MD [address] [place] [address] PCP - General Internal Medicine 03/31/23 documented as of this encounter Additional Source Comments The information contained in this document represents components of the legal health record. It is not the complete legal health record.[facility]
--- OUTSIDE RECORDS SUMMARY | 2025-03-07 06:27 | XMS_ITS | Encounter Summary ---
Author Organization [facility] Address [facility] [address] [place] [address] Phone Care Team Providers Care French Tutor Name Role Phone Rachael Horton MD Primary Care Provide r Verenice Traore MD Primary Care Provider [phone] Pcp, Unknown Primary Care Provider Saadia Paz MD Primary Care Provider [phone] Encounter Details Date Type Department Care Team (Late st Contact Info) Description 02/09/2018 Ancillary Orders [facility] [address] [place] [address] [place] [address] Visit for screening mammogram Social History Tobacco [...] PM EST Office Visit [facility] [address] [facility] 10[address] [place] [address] Jude Rivera MD [address] [place] [address] [email or web address] 05/09/2025 12:45 PM EST Office Visit [facility] [address] [address] Coco Renteria MD [address] [place] [address] [email or web address] documented as of this encounter Visit Diagnoses Diagnosis Visit for screening mammogram documented in this encounter Additional Health Concerns Infection Onset Date Last Indicated Resolved Time COVID-19 04/12/2021 04/12/2021 05/03/2021 1:21 AM EST documented as of this encounter Care Teams French Tutor Relationship Specialty Start Date End Date Rachael Horton MD [address] [place] [address] PCP - General Geriatric Psychiatry 03/17/16 01/10/19 Verenice Traore MD [address] [place] [address] PCP - General Internal Medicine 01/11/19 06/05/21 Pcp, Unknown PCP - General 06/06/21 03/30/23 Saadia Trotter MD [address] [place] [address] PCP - General Internal Medicine 03/31/23 documented as of this encounter Additional Source Comments The information contained in this document represents components of the legal health record. It is not the complete legal health record.[facility]
--- OUTSIDE RECORDS SUMMARY | 2025-03-07 06:27 | XMS_ITS | Encounter Summary ---
Author Organization [facility] Address [facility] [address] [place] [address] Phone Care Team Providers Care News Content Specialist Name Role Phone Rachael Horton MD Primary Care Provide r Verenice Traore MD Primary Care Provider [phone] Pcp, Unknown Primary Care Provider Saadia Paz MD Primary Care Provider [phone] Encounter Details Date Type Department Care Team (Late st Contact Info) Description 12/24/2016 Ancillary Orders [facility] [address] [place] [address] Rachael Horton MD [address] [place] [address] Visit for screening mammogram Social History Tobacco [...] Description 04/23/2025 1:15 PM EST Office Visit [facility] [place] [address] [facility] 10[address] [place] [address] Jude Rivera MD [address] [place] [address] [email or web address] 05/09/2025 12:45 PM EST Office Visit [address] [address] Coco Renteria MD [address] [place] [address] [email or web address] documented as of this encounter Results * BI MAMMOGRAM SCREENING WITH TOMOSYNTHESIS WITH CAD (RIGHT) (03/19/2017 12:58 PM EST) Anatomical Region Laterality Modality Breast Right, Breast Bilateral Right M ammography Impressions 03/19/2017 1:06 PM EST No evidence of malignancy. No significant change from prior examinations. Result Code: BI-RADS 1 Negative. Recommendations: Mammography Screening Recommendation Due Date: 12 Months The recommendation above has been entered into a reminder system to monitor and facilitate patient compliance. Narrative 03/19/2017 1:06 PM EST BI MAMMOGRAM SCREENING WITH TOMOSYNTHESIS WITH CAD (RIGHT): The patient presents for annual mammography status post left mastectomy. Examination is performed with digital mammography and computer aided detection as well as tomosynthesis. Comparison is made with previous mammographic views performed on 02/25/2015 and 03/18/2016. Findings: There are scattered fibroglandular densities. There are no suspicious masses, suspicious calcifications, areas of distortion or other signs of malignancy. Procedure Note Socorro Barrett MD - 03/19/2017 BI MAMMOGRAM SCREENING WITH TOMOSYNTHESIS WITH CAD (RIGHT): The patient presents for annual mammography status post left mastectomy.Examination is performed with digital mammography and computer aideddetection as well as tomosynthesis. Comparison is made with previousmammographic views performed on 02/25/2015 and 03/18/2016. Findings: There are scattered fibroglandular densities. There [...] documented as of this encounter Care Teams News Content Specialist Relationship Specialty Start Date End Date Rachael Horton MD [address] [place] [address] PCP - General Geriatric Psychiatry 03/17/16 01/10/19 Verenice Traore MD [address] [place] [address] PCP - General Internal Medicine 01/11/19 06/05/21 Pcp, Unknown PCP - General 06/06/21 03/30/23 Saadia Trotter MD [address] [place] [address] PCP - General Internal Medicine 03/31/23 documented as of this encounter Additional Source Comments The information contained in this document represents components of the legal health record. It is not the complete legal health record.[facility]
--- OUTSIDE RECORDS SUMMARY | 2025-03-07 06:27 | XMS_ITS | Clinical Summary ---
Author Organization [facility] Address [address] [place] [address] [place] [address] Phone Care Team Providers Care Menu Planner Name Role Phone Jimbo Elaine MD Primary Care Provider [phone] Allergies Active Allergy Reactions Criticality Noted Date Comments Adhesive Itching 06/11/2017 Paper tape Propoxyphene Unknown 03/10/2010 Meperidine Hives High 06/16/2010 Other reaction(s): Hives/Urticaria Medications budesonide-form oterol (SYMBICORT) 160-4.5 mcg/actuation inhaler Dose: 2 PUFF; Form: Not available; Route: INH; Frequency: BID; Directions: prn; Details: Not available; Date: 03/14/2012 2 Active famotidine (PEPCID) 40 MG tablet Take 40 mg by mouth. Active acetaminophen (TYLENOL) 325 mg tablet Take 2 tablets (650 mg total) by mouth every 6 (six) hours. 60 tablet 9 Active Additional Information Patient not taking.Reported on 06/22/2019 lisinopril (PRINIVIL,ZESTR IL) 5 MG tablet Take 1 tablet (5 mg total) by mouth daily. 14 tablet 9 Active Additional Information Patient not taking.Reported on 06/22/2019 calcium carbonate 1,000 mg (400 mg elemental) Chew Take 1 tablet (1,000 mg total) by mouth every 6 (six) hours as needed. 30 tablet 9 Active Additional Information Patient not taking.Reported on 06/22/2019 losartan (COZAAR) 25 MG tablet 12.5 mg. 0 Active magnesium amino acid chelate 100 mg Tab Take 1 tablet by mouth. Active cholecalciferol (CHOLECALCIFERO L) 25 MCG (1,000 unit) tablet Take 1 tablet by mouth. 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 Pulmonary embolism 03/10/2010 Overview (06/09/2014): Pulmonary embolism; at age 40, after 4th Gastroesophageal reflux disease 03/10/2010 Overview (06/09/2014): Gastroesophageal reflux disease Hypercholesterolemia 03/10/2010 Overview (06/09/2014): Hypercholesterolemia Asthma 03/10/2010 Overview (06/09/2014): Asthma Chronic obstructive pulmonary disease 03/10/2010 Overview (06/09/2014): Chronic obstructive lung disease Immunizations Immunization Administration Dates Next Due COVID-19 (Pre-02/08) Pfizer Vaccine, mRNA, PF ,05/20/2020 Pneumococcal polysaccharide PPSV23 11/15/2008 Family History Medical History Relation Comments Breast cancer Sister Dcis mastectomy Blindness Neg Hx Glaucoma Neg Hx Macular degeneration Neg Hx Relation Status Comments Sister Social History Tobacco Use Types Packs/Day Years Used Date Smoking Tobacco: Former Cigarettes Smokeless Tobacco: Never Tobacco Cessation:Counseling Given: Not Answered Comments:Quit smokin04/19/1964 Alcohol Use Standard Drinks/Week Comments Yes 0 [...] Orientation Straight 08/13/2022 9: 29 AM EDT Last Filed Vital Signs Vital Sign Reading Time Taken Comments Blood Pressure 166/77 04/16/2021 1:26 PM EST Pulse 62 04/16/2021 1:26 PM EST Temperature 36.6 C (97.8 F) 04/16/2021 1:26 PM EST Respiratory Rate 18 04/16/2021 1:26 PM EST Oxygen Saturation 99% 04/16/2021 1:26 PM EST Inhaled Oxygen Concentration - - Weight 75.8 kg (167 lb) 04/16/2021 9:50 AM EST Height 165.1 cm (5' 5 ) 04/16/2021 9:50 AM EST Body Mass Index 27.79 04/16/2021 9:50 AM EST Plan of Treatment Upcoming Encounters Date Type Department Care Team (Late st Contact Info) Description 04/23/2025 1:15 PM EST Office Visit [facility] Plastics [facility] [address] 10th [place] [address] Jude Rivera MD [address] [place] [address] [email or web address] 05/09/2025 12:45 PM EST Office Visit [address] [address] Coco Renteria MD [address] [place] [address], [address] [place] [phone] [email or web address] Health Maintenance Due Date Last Done Comments SMOKING Hx and SMOKELESS TOBACCO SCREENING 1958 HEPATITIS C SCREENING 1963 ZOSTER VACCINES (1 of 2) 1964 COLOGUARD 1990 FIT TEST 1990 FOBT 1990 SIGMOIDOSCOPY 1990 VIRTUAL COLONOSCOPY 1990 PNEUMOCOCCAL VACCINES (50+ years) (2 of 2 - PCV) 11/15/2009 11/15/2008 LIPID PANEL 08/25/2016 08/26/2011, 11/2009, 05/08/2009 DEPRESSION SCREENING 02/21/2019 02/21/2018 RSV VACCINE (1 - 1-dose 75+ series) 2020 CREATININE LEVEL 04/07/2020 04/07/2019, , 04/05/2019, Additional history exists POTASSIUM LEVEL 04/07/2020 04/07/2019, 03/19, 04/05/2019, Additional history exists Adult Td,Tdap Booster 01/16/2023 01/16/2013 INFLUENZA VACCINE (#1) 2024 , 01/15/2021, 01/15/2021, Additional history exists COVID-19 VACCINE ( season) 2024 06/13/2020, 05/20/2020 COLONOSCOPY 06/22/2025 06/22/2024, 07/19, 04/02/2015, Additional history exists COLORECTAL CANCER SCREENING 06/22/2025 OSTEOPOROSIS SCREENING INITIAL (ONE-TIME) Completed 12/28/2012, 05/14/2011, 04/24/2010, Additional history exists HEPATITIS A VACCINES Aged Out No long er eligible based on patient's age to complete this topic HIB VACCINES Aged Out No longer eligi ble based on patient's age to complete this topic IPV VACCINES Aged Out No longer eligi ble based on patient's age to complete this topic MENINGOCOCCAL VACCINES (ACWY) Aged Out No longer eligible based on patient's age to complete this topic MENINGOCOCCAL VACCINES (B) Aged Out N o longer eligible based on patient's age to complete this topic Medical Devices Implanted Type Area Product Specialist Device Identifier Shelf Expiration Date Model / Serial / Lot Screw Bone 1.5x3mm Matrixneuro Ti Self Drilling - [id number] Implanted:Qty: 14 on 04/04/2019 by Franco Ardon MD at [facility] NODATA Subdural Space SYNTHES 04.503.10 3.01 / / Graft Tissue 4.0x5.0in Duragen Plus Ultra Pure Collagen Regeneration Matrix Dural - [id number] Implanted:Qty: 1 on 04/04/2019 by Franco Ardon MD at [facility] Right: Subdural Space [employer] 12/17/2021 [id number] / / [id number] Cover [place] 17mm Hole Cranial Matrixneuro Titanium Ultra Low Profile - [id number] Implanted:Qty: 4 on 04/04/2019 by Franco Ardon MD at [facility] Subdural Space SYNTHES 04.502.02 3 / / Plate 0.3mm 14x4 Hole Cranial Matrix Neuro Titanium Frame Shape Ultra Low Profile Thick - [id number] Implanted:Qty: 1 on 04/04/2019 by Franco Ardon MD at [facility] Subdural Space SYNTHES 04.502.06 5 / / Procedures Procedure Name Priority Date/Time Associated Diagnosis Comments HM COLONOSCOPY FOR RESULT ENTRY ONLY Routine 06/22/2024 10:15 AM EST BASIC METABOLIC PANEL (BMP) Routine 04/07/2019 4:46 AM EST BD DXA AXIAL (SPINE) WITH HIP Routine 12/28/2012 9:57 AM EDT HISTORICAL LAB Routine 08/26/2011 6:40 AM EDT from Last 3 Months or Most Recently Relevant to Health Maintenance Results * HM COLONOSCOPY FOR RESULT ENTRY ONLY (06/22/2024 10:15 AM EST) Jose Savage MD HEALTH MAINTENANCE Final Res ult * Basic metabolic panel (04/07/2019 4:46 AM EST) SODIUM 140 136 - 145 mmol/L [facility] POTASSIUM 4.3 3.4 - 5.1 mmol/L [facility] CHLORIDE 103 98 - 107 mmol/L [facility] CO2 25 22 - 31 mmol/L [facility] BUN 11 6 - 23 mg/dL [facility] CREATININE 0.73 0.50 - 1.20 mg/dL [facility] GLUCOSE 94 70 - 100 mg/dL [facility] CALCIUM 9.7 8.8 - 10.7 mg/dL [facility] EGFR 81 >59 mL/min/1.7 3m2 [facility] Comment:If patient is black, multiply result by 1.159. Estimated glomerular filtration rate calculated using the CKD-EPI equation. ANION GAP 12 7 - 17 mmol/L [facility] Blood 04/07/2019 4:46 AM EST 04/07/2019 5:11 AM EST Boogie Kiser PA-C LAB BLOOD BKR ORDERABLES Fi nal Result Performing Organization Address City/State/[facility] Co de Phone Number [facility] [address] [place] [address] * DXA Axial (Spine With Hip) (12/28/2012 9:57 AM EDT) Anatomical Region Laterality Modality Bone Density Bone Density 12/28/2012 9:57 AM EDT Narrative 12/28/2012 9:57 AM EDT Exam Number: [id number] Report Status: Signed Type: AXIAL BONE DENSITOMETR Date/Time: 12/28/2012 09:57 Ordering Provider: JIMBO ELAINE DR, MD EXAMS: [id number] BD/AXIAL BONE DENSITOMETR HOW IS PATIENT TRANSPORTED? Isolation Precautions: Other Precautions:* REASON FOR TEST? OSTEOPENIA, COMING FROM MAMM TEST DETAIL: ADD ON - Bone Density Report (rev:[facility] [id number]) Name: DEMETRIA PEACOCK Age: 67 Sex: Female Ethnicity: White Date of : 1945 INDICATION: The patient is a postmenopausal woman with estrogen deficiency and clinical risk of osteoporosis who presents for bone densitometry evaluation. Referring Physician: DAX ELAINE TECHNIQUE: Axial bone densitometry was performed. Exam Date: December 28, 2012 Accession number: [id number] Bone Density: Region BMD T-Score Z-Score Classification AP Spine (L1-L4) 0.891 -1.4 0.5 Osteopenic Femoral Neck (Right) 0.737 -1.0 0.7 Normal Total Hip (Right) 0.893 -0.4 1.0 Normal World Health Organization criteria for BMD interpretation classify patients as: Normal (T-score at or above -1.0), Osteopenic (T-score between -1.0 and -2.5),or Osteoporotic (T-score at or below -2.5). Previous Exams: Region Exam Age BMD T-Score BMD Change BMD Change Date g/cm2 vs Baseline vs Previous AP Spine(L1-L4) 12/28/2012 67 0.891 -1.4 2.0% 3.9% 05/14/2011 66 0.858 -1.7 -1.8% -5.7%* 04/24/2010 65 0.910 -1.2 4.1%* 1.4% 05/30/2008 63 0.897 -1.4 2.7%* 2.7%* 04/21/2006 61 0.874 -1.6 Total Hip(Right) 12/28/2012 67 0.893 -0.4 -1.1% 0.3% 05/14/2011 66 0.891 -0.4 -1.4% -2.1% 04/24/2010 65 0.909 -0.3 0.7% -1.8% 05/30/2008 63 0.926 -0.1 2.6% 2.6% 04/21/2006 61 0.903 -0.3 Femoral Neck(Right) 12/28/2012 67 0.737 -1.0 -1.0% -3.8% 05/14/2011 66 0.766 -0.8 2.9% 4.2%* 04/24/2010 65 0.735 -1.0 -1.3% -5.7%* 05/30/2008 63 0.780 -0.6 4.8%* 4.8%* 04/21/2006 61 0.744 -0.9 Medical History: Menopause Age: 52 Interpretation: The patient has osteopenia as determined by WHO criteria. Evidence of likely statistically significant increase in bone density since previous study. Follow up in 2 years recommended. Reported by: Ethan Schaefer M.D. on 01/04/2013 10:44:00 AM. REPORT ELECTRONICALLY SIGNED 01/04/2013 (1708) Reported By: ETHAN SCHAEFER M.D. Signed By: ETHAN SCHAEFER MD CC: JIMBO ELAINE M.D.; NATALIE RAZO M.D. Technologist: DANGELO BEACH Transcribed Date/Time: 01/04/2013 (1044) Food Broker: CAPRIA Dictated Date/Time: 01/04/2013 (1042) Procedure Note Sys, Conversion Provider Not In - 08/28/2014 Exam Number: [id number] Report Status: Signed Type: AXIAL BONE DENSITOMETR Date/Time: 12/28/2012 09:57 Ordering Provider: JIMBO ELAINE DR, MD EXAMS: [id number] BD/AXIAL BONE DENSITOMETR HOW IS PATIENT TRANSPORTED? Isolation Precautions: Other Precautions:* REASON FOR TEST? OSTEOPENIA, COMING FROM MAMM TEST DETAIL: ADD ON - Bone Density Report (rev:[facility] [id number]) Name: DEMETRIA PEACOCK Age: 67 Sex: Female Ethnicity: White Date of : 1945 INDICATION: The patient is a postmenopausal woman with estrogen deficiency and clinical risk of osteoporosis who presents for bone densitometry evaluation. Referring Physician: DAX ELAINE TECHNIQUE: Axial bone densitometry was performed. Exam Date: December 28, 2012 Accession number: [id number] Bone Density: Region BMD T-Score Z-Score Classification AP Spine (L1-L4) 0.891 -1.4 0.5 Osteopenic Femoral Neck (Right) 0.737 -1.0 0.7 Normal Total Hip (Right) 0.893 -0.4 1.0 Normal World Health Organization criteria for BMD interpretation classify patients as: Normal (T-score at or above -1.0), Osteopenic (T-score between -1.0 and -2.5),or Osteoporotic (T-score at or below -2.5). Previous Exams: Region Exam Age BMD T-Score BMD Change BMD Change Date g/cm2 vs Baseline vs Previous AP Spine(L1-L4) 12/28/2012 67 0.891 -1.4 2.0% 3.9% 05/14/2011 66 0.858 -1.7 -1.8% -5.7%* 04/24/2010 65 0.910 -1.2 4.1%* 1.4% 05/30/2008 63 0.897 -1.4 2.7%* 2.7%* 04/21/2006 61 0.874 -1.6 Total Hip(Right) 12/28/2012 67 0.893 -0.4 -1.1% 0.3% 05/14/2011 66 0.891 -0.4 -1.4% -2.1% 04/24/2010 65 0.909 -0.3 0.7% -1.8% 05/30/2008 63 0.926 -0.1 2.6% 2.6% 04/21/2006 61 0.903 -0.3 Femoral Neck(Right) 12/28/2012 67 0.737 -1.0 -1.0% -3.8% 05/14/2011 66 0.766 -0.8 2.9% 4.2%* 04/24/2010 65 0.735 -1.0 -1.3% -5.7%* 05/30/2008 63 0.780 -0.6 4.8%* 4.8%* 04/21/2006 61 0.744 -0.9 Medical History: Menopause Age: 52 Interpretation: The patient has osteopenia as determined by WHO criteria. Evidence of likely statistically significant increase in bone density since previous study. Follow up in 2 years recommended. Reported by: Ethan Schaefer M.D. on 01/04/2013 10:44:00 AM. REPORT ELECTRONICALLY SIGNED 01/04/2013 (1623) Reported By: ETHAN SCHAEFER M.D. Signed By: ETHAN SCHAEFER MD CC: JIMBO ELAINE M.D.; NATALIE RAZO M.D. Technologist: DANGELO BEACH Transcribed Date/Time: 01/04/2013 (1044) Food Broker: RAD.DEXA Dictated Date/Time: 01/04/2013 (1044) us Conversion Provider Not In Sys IMG BD BONE DENSI TY DEXA Final Result * (ABNORMAL) Historical Lab (08/26/2011 6:40 AM EDT) .FASTING (LIPIP) FASTING [facility] CHOLESTEROL, SERUM 213(Abnorma lly H) 140 - 200 mg/dL [facility] TRIGLYCERIDE 152(Abnorma lly H) <150 MG/DL [facility] Comment: Normal: < 150 mg/dl Borderline High: 150-199 mg/dl High: 200-499 mg/dl Very high: > or = 500 mg/dl HDL CHOLESTEROL 57 MG/DL [facility] Comment: High Risk Factor for Heart Disease: Female: <50 mg/dL Male: <40 mg/dL Low Risk Factor for Heart Disease: Female: >60 mg/dL Male: >60 mg/dL LDL CHOLESTEROL 126 <130 MG/DL [facility] Comment: ATP III Classification of LDL Cholesterol (mg/dl): < 100 Optimal 100-129 Near Optimal/Above Optimal 130-159 Borderline High 160-189 High = or > 190 Very High CHOL/HDL RATIO 3.7 <4.5 [facility] RELATIVE RISK 0.7 <0.5 - 1.0 [facility] 08/26/2011 6:40 AM EDT 08/26/2011 6:48 AM EDT us Conversion Provider Not In Sys LAB BLOOD ORDERAB LES Final Result [facility] [address] [place] [address] from Last 3 Months or Most Recently Relevant to Health Maintenance Insurance [employer] [place] [address] [address] [place] [address] MEDICARE PPO BLUE REPLACEMENT [facility] MEDICARE PPO BLUE REPLACEMENT [facility] MEDICARE PPO BLUE REPLACEMENT [facility] MEDICARE PPO BLUE REPLACEMENT [facility] MEDICARE PPO BLUE REPLACEMENT [facility] MEDICARE PPO BLUE REPLACEMENT Advance Directives For more information, please contact: [phone] (9AM - 5PM [facility]i/[facility], Wednesday-Wednesday) * Full Code (Presumed) (Latest Code Status on File) Date Activated Date Inactivated Comments 04/03/2019 8:55 PM 04/07/2019 5:05 PM Care Teams Menu Planner Relationship Specialty Start Date End Date Jimbo Elaine MD [address] [place] [address] PCP - General Internal Medicine 03/31/23 Additional Source Comments The information contained in this document represents components of the legal health record. It is not the complete legal health record.[facility]
--- OUTSIDE RECORDS SUMMARY | 2025-03-07 06:28 | XMS_ITS | Encounter Summary ---
Author Organization [facility] Address [address] [place] [address] Phone Care Team Providers Care Loan Underwriter Name Role Phone Saadia Trotter MD Primary Care Provider [phone] Rachael Horton MD Primary Care Provide r Verenice Traore MD Primary Care Provider [phone] Pcp, Unknown Primary Care Provider [facility] Saadia Trotter MD Primary Care Provider [phone] Encounter Details Date Type Department Care Team (Late st Contact Info) Description 01/14/2016 Ancillary Orders [facility] [address] [place] [address] Saadia Trotter MD [facility] [place] [address] Osteopenia (Primary Dx) Social History Tobacco Use Types [...] 1:15 PM EST Office Visit [facility] [address] [facility] 10th [place] [address] Jude Rivera MD [address] [place] [address] [email or web address] 05/09/2025 12:45 PM EST Office Visit DA [address] [address] Coco Renteria MD [address] [place] [address], [address] [address] [email or web address] documented as of this encounter Visit Diagnoses Diagnosis Osteopenia- Primary Disorder of bone and cartilage, unspecified documented in this encounter Additional Health Concerns Infection Onset Date Last Indicated Resolved Time COVID-19 04/12/2021 04/12/2021 05/03/2021 1:21 AM EST documented as of this encounter Care Teams Loan Underwriter Relationship Specialty Start Date End Date Saadia Trotter MD [facility] [place] [address] PCP - General Internal Medicine 01/14/16 03/16/16 Rachael Horton MD [address] [place] [address] PCP - General Geriatric Psychiatry 03/17/16 01/10/19 Verenice Traore MD [address] [place] [address] PCP - General Internal Medicine 01/11/19 06/05/21 Pcp, Unknown PCP - General 06/06/21 03/30/23 Saadia Trotter MD [address] [place] [address] PCP - General Internal Medicine 03/31/23 documented as of this encounter Additional Source Comments The information contained in this document represents components of the legal health record. It is not the complete legal health record.[facility]
--- OUTSIDE RECORDS SUMMARY | 2025-03-07 06:28 | XMS_ITS | Encounter Summary ---
Author Organization [facility] Address [address] [facility] [address] [place] [address] Phone Care Team Providers Care Assistant Professor Of German Name Role Phone Pcp, Unknown Primary Care Provider Saadia Paz MD Primary Care Provider [phone] Encounter Details Date Type Department Care Team (Late st Contact Info) Description 06/07/2021 Ancillary Orders [facility], [facility] [address] [place] [address] Saadia Trotter MD [facility] [place], [place] [id number] Visit for screening mammogram Social History Tobacco [...] Description 04/23/2025 1:15 PM EST Office Visit [facility] Pl[facility] [address] [facility] 10th [place] [address] Jude Rivera MD [address] [place] [address] [email or web address] 05/09/2025 12:45 PM EST Office Visit [address] [address] Coco Renteria MD [address] [place] [address] [email or web address] documented as of this encounter Results * BI MAMMOGRAM SCREENING WITH TOMOSYNTHESIS WITH CAD (RIGHT) (06/06/2021 11:04 AM EST) Anatomical Region Laterality Modality Breast Right, Breast Bilateral Right M ammography Impressions 06/06/2021 4:24 PM EST No mammographic evidence of malignancy. Routine screening mammography is recommended in one year. OVERALL Assessment: BI-RADS 1 Negative. The recommendation above has been entered into a reminder system to monitor and facilitate patient compliance. Narrative 06/06/2021 4:24 PM EST BI MAMMOGRAM SCREENING WITH TOMOSYNTHESIS WITH CAD (RIGHT): Reason for exam: Screening. Prior left mastectomy for breast cancer. No new breast complaints. Examination is performed with digital mammography and computer aided detection as well as tomosynthesis. Comparison is made with prior mammograms . BREAST DENSITY: There are scattered areas of fibroglandular density FINDINGS: Right Breast: There are no suspicious masses, calcifications, or other abnormalities noted. us Saadia Trotter MD IMG MG EXAMS Edited Result - Final documented in this encounter Visit Diagnoses Diagnosis Visit for screening mammogram Visit for screening mammogram documented in this encounter Additional Health Concerns Assessment Noted Time PHQ-2 Depression Total Score: 0 02/22/20 9:51 AM EST documented as of this encounter Care Teams Assistant Professor Of German Relationship Specialty Start Date End Date Pcp, Unknown PCP - General 06/06/21 03/30/23 Saadia Trotter MD [address] [place] [address] PCP - General Internal Medicine 03/31/23 documented as of this encounter Additional Source Comments The information contained in this document represents components of the legal health record. It is not the complete legal health record.[facility]
--- OUTSIDE RECORDS SUMMARY | 2025-03-07 06:28 | XMS_ITS | Encounter Summary ---
Author Organization [facility] Address [address] [facility] [address] [place] [address] Phone Care Team Providers Care Sack Lifter Name Role Phone Saadia Trotter MD Primary Care Provider [phone] Rachael Horton MD Primary Care Provide r Verenice Traore MD Primary Care Provider [phone] Pcp, Unknown Primary Care Provider [facility] Saadia Trotter MD Primary Care Provider [phone] Encounter Details Date Type Department Care Team (Late st Contact Info) Description 01/14/2016 Ancillary Orders Women's Imaging Department [address] [place] [address] Saadia Trotter MD [place] [address] Screening breast examination (Primary Dx) Social History Tobacco Use Types [...] Office Visit [facility] [address] [facility] 10th [place] [address] Jude Rivera MD [address] [place] [address] [email or web address] 05/09/2025 12:45 PM EST Office Visit DA [address] [address] Coco Renteria MD [address] [place] [address], [address] [place] [address] [email or web address] documented as of this encounter Visit Diagnoses Diagnosis Screening breast examination- Primary Other screening breast examination documented in this encounter Additional Health Concerns Infection Onset Date Last Indicated Resolved Time COVID-19 04/12/2021 04/12/2021 05/03/2021 1:21 AM EST documented as of this encounter Care Teams Sack Lifter Relationship Specialty Start Date End Date Saadia Trotter MD [address] [place] [address] PCP - General Internal Medicine 01/14/16 03/16/16 Rachael Horton MD [address] [place] [address] PCP - General Geriatric Psychiatry 03/17/16 01/10/19 Verenice Traore MD [address] [place] [address] PCP - General Internal Medicine 01/11/19 06/05/21 Pcp, Unknown PCP - General 06/06/21 03/30/23 Saadia Trotter MD [address] [place] [address] PCP - General Internal Medicine 03/31/23 documented as of this encounter Additional Source Comments The information contained in this document represents components of the legal health record. It is not the complete legal health record.[facility]
--- OUTSIDE RECORDS SUMMARY | 2025-03-07 06:28 | XMS_ITS | Encounter Summary ---
Author Organization [facility] Address Formerly [facility] [address] [place] [address] Phone Care Team Providers Care Economic Manager Name Role Phone Rachael Horton MD Primary Care Provide r Verenice Traore MD Primary Care Provider [phone] Pcp, Unknown Primary Care Provider Saadia Paz MD Primary Care Provider [phone] Encounter Details Date Type Department Care Team (Late st Contact Info) Description 03/22/2018 Ancillary Orders [facility] [address] [place] [address] Rachael Horton MD [address] [place] [address] Visit for screening mammogram Social History Tobacco Use Types Packs/Day Years Used Date Smoking Tobacco: Former Cigarettes Smokeless Tobacco: Never Comments:Quit smokin04/19 Comments No Sex and Gender Information Value [...] Description 04/23/2025 1:15 PM EST Office Visit [facility] [address] [facility] 10th [place] [address] Jude Rivera MD [address] [place] [address] [email or web address] 05/09/2025 12:45 PM EST Office Visit [address] [address] Coco Renteria MD [address] [place] [address] [email or web address] documented as of this encounter Results * BI MAMMOGRAM SCREENING WITH TOMOSYNTHESIS WITH CAD (RIGHT) (03/22/2018 10:08 AM EST) Anatomical Region Laterality Modality Breast Right, Breast Bilateral Right M ammography Impressions 03/24/2018 4:42 PM EST No evidence of malignancy. Routine screening mammography is recommended. OVERALL Assessment: BI-RADS 1 Negative. The recommendation above has been entered into a reminder system to monitor and facilitate patient compliance. Narrative 03/24/2018 4:42 PM EST BI MAMMOGRAM SCREENING WITH TOMOSYNTHESIS WITH CAD (RIGHT) [place] [address]. Examination is performed with digital mammography and computer aided detection as well as tomosynthesis. INDICATION: Left breast cancer status post mastectomy 2010. COMPARISON: Prior studies dated 02/25/2015 from 03/19/2017. There are scattered fibroglandular densities. There are no suspicious masses, suspicious calcifications, areas of distortion or other signs of malignancy. Procedure Note Bobbi Thomas MD - 03/24/2018 BI MAMMOGRAM SCREENING WITH TOMOSYNTHESIS WITH CAD (RIGHT) Mammographic imaging was performed at [facility], [address] [place] [address], [place] [address]. Examination is performed with digital mammography and computer aideddetection as well as tomosynthesis. INDICATION: Left breast cancer status post mastectomy 2010. COMPARISON: Prior studies dated 02/25/2015 from 03/19/2017. There are scattered fibroglandular densities. There are no suspiciousmasses, suspicious calcifications, areas of distortion or other signs ofmalignancy. IMPRESSION: No evidence of malignancy. Routine screening mammography is recommended. OVERALL Assessment: BI-RADS 1 Negative. The recommendation [...] documented as of this encounter Care Teams Economic Manager Relationship Specialty Start Date End Date Rachael Horton MD [address] [place] [address] PCP - General Geriatric Psychiatry 03/17/16 01/10/19 Verenice Traore MD [address] [place] [address] PCP - General Internal Medicine 01/11/19 06/05/21 Pcp, Unknown PCP - General 06/06/21 03/30/23 Saadia Trotter MD [address] [place] [address] PCP - General Internal Medicine 03/31/23 documented as of this encounter Additional Source Comments The information contained in this document represents components of the legal health record. It is not the complete legal health record.[facility]
--- OUTSIDE RECORDS SUMMARY | 2025-03-07 06:28 | XMS_ITS | Encounter Summary ---
Author Organization [facility] Address [facility] [employer] [facility] [address] [place] [address] Phone Care Team Providers Care Extract Mixer Name Role Phone Rachael Horton MD Primary Care Provide r Verenice Traore MD Primary Care Provider [phone] Pcp, Unknown Primary Care Provider Saadia Paz MD Primary Care Provider [phone] Reason for Referral * Physical Therapy (Routine) - Closed Specialty Diagnoses / Procedures Referred By Maurice chiu Referred To Contact Physical Therapy Diagnoses Encounter for rehabilitation Vitcoria Nelson MD, [place] Phone: tel: fax: mailto:[email or web address] [address] [place] [address] Phone: tel: Referral ID Status Reason Start Date Expiration Date Visits Re quested Visits Authorized [id number] Closed 03/14/2018 03/14/2019 1 1 Encounter Details Date Type Department Care Team (Latest Contact Info) Description 03/14/2018 Transcribe Orders [facility] [address] [place] [address] Victoria Nelson MD, [place] [address] Department of Obstetric[place] [address] [email or web address] Encounter for rehabilitation (Primary Dx) Social History Tobacco Use Types [...] Description 04/23/2025 1:15 PM EST Office Visit [facility] [address] [facility] 10th [place] [address] Jude Rivera MD [address] [place] [address] [email or web address] 05/09/2025 12:45 PM EST Office Visit [address] [address] Coco Renteria MD [address] [place] [address] [email or web address] Scheduled Referrals Name Type Priority Associated Diagnoses Orde r Schedule Ambulatory referral to [facility] Physical Therapy Outpatient Referral Routine Encounter for rehabilitation Ordered: 03/14/2018 documented as of this encounter Visit Diagnoses Diagnosis Encounter for rehabilitation- Primary documented in this encounter Additional Health Concerns Infection Onset Date Last Indicated Resolved Time COVID-19 04/12/2021 04/12/2021 05/03/2021 1:21 AM EST Assessment Noted Time PHQ-2 Depression Total Score: 0 02/22/20 9:51 AM EST documented as of this encounter Care Teams Extract Mixer Relationship Specialty Start Date End Date Rachael Horton MD [address] [place] [address] PCP - General Geriatric Psychiatry 03/17/16 01/10/19 Verenice Traore MD [address] [place] [address] PCP - General Internal Medicine 01/11/19 06/05/21 Pcp, Unknown PCP - General 06/06/21 03/30/23 Saadia Trotter MD [address] [place] [address] PCP - General Internal Medicine 03/31/23 documented as of this encounter Additional Source Comments The information contained in this document represents components of the legal health record. It is not the complete legal health record.[facility]
--- OUTSIDE RECORDS SUMMARY | 2025-03-07 06:28 | XMS_ITS | Encounter Summary ---
Author Organization [facility] Address [facility] [address] [place] [address] Phone Care Team Providers Care Punch Machine Operator Name Role Phone Rachael Horton MD Primary Care Provide r Verenice Traore MD Primary Care Provider [phone] Pcp, Unknown Primary Care Provider Saadia Paz MD Primary Care Provider [phone] Encounter Details Date Type Department Care Team (Late st Contact Info) Description 03/18/2016 Ancillary Orders [facility]- Breast Imaging, [facility] [place] [address] [place] [address] Rachael Horton MD [address] [place] [address] Screening breast examination Social History Tobacco Use [...] 1:15 PM EST Office Visit [facility] [address] [facility] 10th [place] [address] Jude Rivera MD [address] [place] [address] [email or web address] 05/09/2025 12:45 PM EST Office Visit [facility] [address] [address] Coco Renteria MD [address] [place] [address] [email or web address] documented as of this encounter Visit Diagnoses Diagnosis Screening breast examination Other screening breast examination documented in this encounter Additional Health Concerns Infection Onset Date Last Indicated Resolved Time COVID-19 04/12/2021 04/12/2021 05/03/2021 1:21 AM EST documented as of this encounter Care Teams Punch Machine Operator Relationship Specialty Start Date End Date Rachael Horton MD [address] [place] [address] PCP - General Geriatric Psychiatry 03/17/16 01/10/19 Verenice Traore MD [address] [place] [address] PCP - General Internal Medicine 01/11/19 06/05/21 Pcp, Unknown PCP - General 06/06/21 03/30/23 Saadia Trotter MD [address] [place] [address] PCP - General Internal Medicine 03/31/23 documented as of this encounter Additional Source Comments The information contained in this document represents components of the legal health record. It is not the complete legal health record.[facility]
--- OUTSIDE RECORDS SUMMARY | 2025-03-07 06:28 | XMS_ITS | Encounter Summary ---
Author Organization [facility] Address [facility] [address] [place] [address] Phone Care Team Providers Care Mechanic Driver Name Role Phone Pcp, Unknown Primary Care Provider Saadia Paz MD Primary Care Provider [phone] Encounter Details Date Type Department Care Team (Late st Contact Info) Description 06/06/2021 Ancillary Orders [facility]- Breast Imaging, [facility] [address] [place], [place] [id number] System, Provider Not In, [place] [address] Visit for screening mammogram Social History Tobacco [...] 04/23/2025 1:15 PM EST Office Visit [facility] [address] [facility] 10[address] [place] [address] Jude Rivera MD [address] [place] [address] [email or web address] 05/09/2025 12:45 PM EST Office Visit [facility] [address] [address] Coco Renteria MD [address] [place] [address] [place] [address] [email or web address] documented as of this encounter Visit Diagnoses Diagnosis Visit for screening mammogram documented in this encounter Additional Health Concerns Assessment Noted Time PHQ-2 Depression Total Score: 0 02/22/20 18 9:51 AM EST documented as of this encounter Care Teams Mechanic Driver Relationship Specialty Start Date End Date Pcp, Unknown PCP - General 06/06/21 03/30/23 Saadia Trotter MD [address] [place] [address] PCP - General Internal Medicine 03/31/23 documented as of this encounter Additional Source Comments The information contained in this document represents components of the legal health record. It is not the complete legal health record.[facility]
--- OUTSIDE RECORDS SUMMARY | 2025-03-07 06:28 | XMS_ITS | Encounter Summary ---
Author Organization [facility] Address [facility] [address] [place] [address] Phone Care Team Providers Care Financial Counselor Name Role Phone Verenice Traore MD Primary Care Provider [phone] Pcp, Unknown Primary Care Provider Saadia Paz MD Primary Care Provider [phone] Encounter Details Date Type Department Care Team (Late st Contact Info) Description 02/09/2020 Procedure Pass [facility]- Breast Imaging- [address] [address] Social History Tobacco Use Types Packs/Day Years [...] Description 04/23/2025 1:15 PM EST Office Visit [address] [address] Jude Rivera MD [address] [place] [address] [email or web address] 05/09/2025 12:45 PM EST Office Visit [facility] [address] [address] Coco Renteria MD [address] [place] [address] [email or web address] documented as of this encounter Visit Diagnoses Not on filedocumented in this encounter Additional Health Concerns Infection Onset Date Last Indicated Resolved Time COVID-19 04/12/2021 04/12/2021 05/03/2021 1:21 AM EST Assessment Noted Time PHQ-2 Depression Total Score: 0 02/22/20 18 9:51 AM EST documented as of this encounter Care Teams Financial Counselor Relationship Specialty Start Date End Date Verenice Traore MD [address] [place] [address] PCP - General Internal Medicine 01/11/19 06/05/21 Pcp, Unknown PCP - General 06/06/21 03/30/23 Saadia Trotter MD [address] [place] [address] PCP - General Internal Medicine 03/31/23 documented as of this encounter Additional Source Comments The information contained in this document represents components of the legal health record. It is not the complete legal health record.[facility]
--- OUTSIDE RECORDS SUMMARY | 2025-03-07 06:29 | XMS_ITS | Encounter Summary ---
Author Organization [facility] Address [address] [facility] [address] [place] [address] Phone Care Team Providers Care Certified Athletic Trainer Name Role Phone Saadia Trotter MD Primary Care Provider Encounter Details Date Type Department Care Team (Late st Contact Info) Description 08/23/2024 Ancillary Orders [facility] Central Scheduling [address] [place] [address] Saadia Trotter MD [facility] [place] [address] Visit for screening mammogram (Primary Dx) Social [...] Description 04/23/2025 1:15 PM EST Office Visit [facility] [address] [facility] 10th [place] [address] Jude Rivera MD [address] [place] [address] [email or web address] 05/09/2025 12:45 PM EST Office Visit [address] [address] Coco Renteria MD [address] [place] [address] [email or web address] documented as of this encounter Results * BI MAMMOGRAM SCREENING WITH TOMOSYNTHESIS WITH CAD (RIGHT) (08/23/2024 8:22 AM EDT) Anatomical Region Laterality Modality Breast Right, Breast Bilateral Right M ammography 08/23/2024 11:2 8 AM EDT Impressions 08/23/2024 11:30 AM EDT No mammographic evidence of malignancy in the right breast. Annual screening mammography is recommended. BI-RADS 1 NEGATIVE The patient will be notified of the results and recommendations. Narrative 08/23/2024 11:30 AM EDT BI MAMMOGRAM SCREENING WITH TOMOSYNTHESIS WITH CAD (RIGHT) Additional patient information: Screening. History of left breast cancer status post mastectomy. COMPARISON: Comparison is made with relevant prior imaging. Breast composition: There are scattered areas of fibroglandular density. FINDINGS: No abnormal masses, suspicious calcifications, or other significant findings are identified mammographically in the right breast. Procedure Note Martin Lofton MD - 08/23/2024 BI MAMMOGRAM SCREENING WITH TOMOSYNTHESIS WITH CAD (RIGHT) Additional patient information: Screening. History of left breast cancerstatus post mastectomy. COMPARISON: Comparison is made with relevant prior imaging. Breast composition: There are scattered areas of fibroglandular density. FINDINGS: No abnormal masses, suspicious calcifications, or other significantfindings are identified mammographically in the right breast. IMPRESSION: No mammographic evidence of malignancy in the right breast. Annual screening mammography is recommended. BI-RADS 1 NEGATIVE The patient will be notified of the results and recommendations. us Saadia Trotter MD IMG MG EXAMS Final Result documented in this encounter Visit Diagnoses Diagnosis Visit for screening mammogram Visit for screening mammogram- Primary documented in this encounter Additional Health Concerns Assessment Noted Time PHQ-2 Depression Total Score: 0 02/22/20 18 9:51 AM EST documented as of this encounter Care Teams Certified Athletic Trainer Relationship Specialty Start Date End Date Saadia Trotter MD [address] [place] [address] PCP - General Internal Medicine 03/31/23 documented as of this encounter Additional Source Comments The information contained in this document represents components of the legal health record. It is not the complete legal health record.[facility]
--- OUTSIDE RECORDS SUMMARY | 2025-03-07 06:29 | XMS_ITS | Encounter Summary ---
Author Organization [facility] Address [address] [facility] [address] [place] [address] Phone Care Team Providers Care Dial Lathe Operator Name Role Phone Saadia Trotter MD Primary Care Provider [phone] Rachael Horton MD Primary Care Provide r Verenice Traore MD Primary Care Provider [phone] Pcp, Unknown Primary Care Provider [facility] Saadia Trotter MD Primary Care Provider [phone] Encounter Details Date Type Department Care Team (Late st Contact Info) Description 01/14/2016 Ancillary Orders [facility] Central Scheduling [address] [place] [address] Saadia Trotter MD [place] [address] Social History Tobacco Use Types Packs/Day Years [...] 1:15 PM EST Office Visit [facility] [address] [facility] 10th [place] [address] Jude Rivera MD [address] [place] [address] [email or web address] 05/09/2025 12:45 PM EST Office Visit DA [address] [address] Coco Renteria MD [address] [place] [address] [email or web address] documented as of this encounter Visit Diagnoses Not on filedocumented in this encounter Additional Health Concerns Infection Onset Date Last Indicated Resolved Time COVID-19 04/12/2021 04/12/2021 05/03/2021 1:21 AM EST documented as of this encounter Care Teams Dial Lathe Operator Relationship Specialty Start Date End Date Saadia Trotter MD [address] [place] [address] PCP - General Internal Medicine 01/14/16 03/16/16 Rachael Horton MD [address] [place] [address] PCP - General Geriatric Psychiatry 03/17/16 01/10/19 Verenice Traore MD [address] [place] [address] PCP - General Internal Medicine 01/11/19 06/05/21 Pcp, Unknown PCP - General 06/06/21 03/30/23 Saadia Trotter MD [address] [place] [address] PCP - General Internal Medicine 03/31/23 documented as of this encounter Additional Source Comments The information contained in this document represents components of the legal health record. It is not the complete legal health record.[facility]
--- OUTSIDE RECORDS SUMMARY | 2025-03-07 06:29 | XMS_ITS | Encounter Summary ---
Author Organization [facility] Address [facility] [employer] [facility] [address] [place] [address] Phone Care Team Providers Care Paint Crew Supervisor Name Role Phone Verenice Traore MD Primary Care Provider [phone] Pcp, Unknown Primary Care Provider Saadia Paz MD Primary Care Provider [phone] Encounter Details Date Type Department Care Team (Late st Contact Info) Description 04/04/[address] [facility] [address] [place] [address] Social History Tobacco Use Types Packs/Day Years [...] Description 04/23/2025 1:15 PM EST Office Visit [address] [address] Jude Rivera MD [address] [place] [address] [email or web address] 05/09/2025 12:45 PM EST Office Visit [facility] [address] [address] Coco Renteria MD [address] [place] [address] [email or web address] documented as of this encounter Visit Diagnoses Not on filedocumented in this encounter Additional Health Concerns Infection Onset Date Last Indicated Resolved Time COVID-19 04/12/2021 04/12/2021 05/03/2021 1:21 AM EST Assessment Noted Time PHQ-2 Depression Total Score: 0 02/22/20 18 9:51 AM EST documented as of this encounter Care Teams Paint Crew Supervisor Relationship Specialty Start Date End Date Verenice Traore MD [address] [place] [address] PCP - General Internal Medicine 01/11/19 06/05/21 Pcp, Unknown PCP - General 06/06/21 03/30/23 Saadia Trotter MD [address] [place] [address] PCP - General Internal Medicine 03/31/23 documented as of this encounter Additional Source Comments The information contained in this document represents components of the legal health record. It is not the complete legal health record.[facility]
--- OUTSIDE RECORDS SUMMARY | 2025-03-07 06:29 | XMS_ITS | Clinical Summary ---
Author Organization [facility] Address [address] [place] [address] Care Team Providers Care Towboat Engineer Name Role Phone Unavailable Primary Care Provider [...] - 1-dose 75+ series) 2020 COVID-19 Vaccine (2024-2 6 season) 2024 Influenza (#1) 2024 HPV Vaccine (No Doses Required) Completed Hep A Aged Out No longer eligi [...]
== END 2025-03-06 13:16 | disposition home or self-care (01) ==
LOC: HO.HMGCLNP 13:15
PROVIDERS: PCP Internal Medicine; Visit Provider Internal Medicine
DX: R19.7 Diarrhea, unspecified (principal)
CPT/HCPCS: 87177; 87209

== ENCOUNTER 2025-03-19 08:44 | Outpatient (AMB) | payer MEDICARE, SELFPAY ==
--- NOTE | 2025-03-19 08:47 | A.OFFPC_ITS ---
Vital Signs 03/19/25 08:53 Height 5 ft 5 in Weight 166 lb BMI 27.6 BP 130/70 Blood Pressure Location Rt brachial Position Sitting Respiration 17 Pulse 93 Pulse Source Pulse Oximeter Pulse Oximetry (%) 95 Oxygen Delivery Method Room Air Intake Visit Reasons: 4m f/u Intake Note: Pt is here today for 4 months follow up visit. Allergies meperidine (From Demerol) Allergy (Mild, Verified 03/19/25 08:54) hives paper tape Allergy (Mild, Uncoded 03/19/25 08:54) Redness of Skin Medication List - Last Reconciled 03/19/25 by Saadia Trotter MD albuterol sulfate 90 mcg/actuation 2 puffs inhalation Q6H PRN albuterol sulfate 90 mcg/actuation 2 puffs inhalation Q6-8H PRN ascorbate calcium (vitamin C) 500 mg PO DAILY calcium carbonate-vitamin D3 600 mg-10 mcg (400 unit) (Calcium with Vitamin D) 1 tab PO DAILY famotidine 40 mg PO DAILY cyapviachtk-euasaruvi-qvcnkqvu 100-62.5-25 mcg (Trelegy Ellipta) 1 ea inhalation DAILY Held on 06/27/24. Instructions: Doctor's Order losartan 12.5 mg (1/2 x 25 mg) PO DAILY magnesium chloride PO Trelegy Ellipta 100-62.5-25 mcg (jgomyhggoxv-iadivxzjw-sbubypap) 1 inh inhalation DAILY NS Trelegy Ellipta 200-62.5-25 mcg (sjxhnlprhab-cvmnxpfof-aokfoyfn) 1 inh inhalation DAILY NS Tobacco use date assessed: 03/19/25 Last assessed Fall Risk: 03/19/25 Dental Screening Dental Screen Date: 05/10/24 HPI 4m f/u HPI Details Pt presents for follow-up of HTN, chronic asthma stable on current medications. patient reports noticing black small dots on her underwear for the last few weeks. She is concerned about having parasite infection. She denies abdominal pain nausea vomiting change in bowel habits but reports intermittent chronic constipation. Patient denies hematochezia or melena. She had history of E coli infection in 2021 and was treated with Cipro. She recalls similar symptoms of noticing black dots on her underwear a few years ago which resolved after treatment. Patient had negative colonoscopy 2 years ago. [facility] Medical History COPD (chronic obstructive pulmonary disease) Colon polyps Thrombocytopenia Hyperlipidemia Vitamin D deficiency Osteopenia HTN (hypertension) Rectal prolapse Surgical History Hx of tubal ligation Hx of tonsillectomy Hx of mastectomy Hx of breast reconstruction Family History Mother No problems noted. Father Throat cancer Lung cancer Prostate cancer Social History Housing: House Patient Tobacco Use Status: Never used Tobacco e-Cigarette/Vaping Use: Never Used service: No Current occupational status: retired Cognitive needs: No Hearing needs: No Vision needs: Yes Questionnaire Thrive Questionnaire Date Thrive assessed: 05/10/24 I am a: Patient What is your living situation today?: I have a steady place to live Within the past 12 months, did the food you bought not last and you didn't have the money to get more?: Never true Within the past 12 months, did you worry whether your food would run out before you got money to buy more?: Never true Do you have trouble paying for medicines?: No Do you have trouble getting transportation to medical appointments?: No Do you have trouble paying your heating and electricity bill?: No Do you have trouble taking care of your child, family member or friend?: No Do you have trouble with day-to-day activities such as bathing, preparing meals, shopping, managing finances, etc.?: No Are you currently unemployed and looking for a job?: No Are you interested in more education?: No Please select the resources that you would like help with: None Currently or been in a relationship where the following occur: No concerns reported THRIVE Score: 0 MARCELLO-7 AMB Questionnaire MARCELLO-7 Date MARCELLO - 7 assessed: 05/10/24 Source: Developed by Drs. Eleazar Gutierrez, Hanna Kevin, Chris Bill and colleagues, with an educational brian from [employer]. Review of Systems Const All systems reviewed & are unremarkable except as noted in HPI and below Eyes Reports no additional complaints Card Reports no additional complaints Resp Reports no additional complaints GI Reports no additional complaints Reports no additional complaints Physical exam (Primary Care) Vital Signs: Last Vital Signs Pulse 93 03/19/25 08:53 Resp 17 03/19/25 08:53 BP 130/70 03/19/25 08:53 Pulse Ox 95 03/19/25 08:53 Oxygen Delivery Method Room Air 03/19/25 08:53 BMI result Body Mass Index 27.6 Tobacco/Smoking Status: Tobacco use Status Tobacco use date assessed 03/19/25 03/19/25 08:57 Patient Tobacco Use Status Never used Tobacco 03/19/25 08:57 e-Cigarette/Vaping Use Never Used 03/19/25 08:48 Thrive Assessment: Date of Thrive Assessment Date Thrive assessed 05/10/24 03/19/25 08:48 Currently or been in a relationship where the following occur: No concerns reported Const General: no acute distress HENMT Head: Yes normal to inspection Face and sinus: Yes normal facial exam Throat: Yes posterior oropharynx normal Resp Effort & Inspection: normal respiratory effort Auscultation: clear to auscultation bilaterally Cardio Rhythm: regular rhythm Heart sounds: S1 normal heart sound present and S2 normal heart sound present GI Inspection: Yes normal to inspection Palpation (GI): Soft to palpation Percussion: Yes normal to percussion Auscultation: normal bowel sounds Rectal Exam - Female: deferred (Patient declined rectal exam) Coding Level of Care Code Est Pt Level 4 (23218) Diagnoses HTN (hypertension) I10 Hyperlipidemia E78.5 Thrombocytopenia D69.6 COPD (chronic obstructive pulmonary disease) J44.9 Abnormal bowel movement R19.8 Assessment & Plan Assessment & Plan (1) HTN (hypertension): Code(s): I10 - Essential (primary) hypertension Category: Medical Plan: Continue losartan (2) Hyperlipidemia: Comment: diet controlled, pt declined statins Code(s): E78.5 - Hyperlipidemia, unspecified Category: Medical Plan: Continue low-cholesterol diet (3) Thrombocytopenia: Comment: Borderline and stable, monitor Code(s): D69.6 - Thrombocytopenia, unspecified Category: Medical Plan: Continue to monitor (4) COPD (chronic obstructive pulmonary disease): Comment: Controlled on Trelegy Code(s): J44.9 - Chronic obstructive pulmonary disease, unspecified Category: Medical Plan: Continue Trelegy (5) Abnormal bowel movement: Code(s): R19.8 - Other specified symptoms and signs involving the digestive system and abdomen Category: Medical Plan: Stool studies for ova and parasites are pending and patient was reassured Orders: Orders Complete Blood Count Auto Diff 6 Months E55.9 - Vitamin D deficiency, unspecified, E78.5 - Hyperlipidemia, unspecified, I10 - Essential (primary) hypertension Lipid Panel 6 Months E55.9 - Vitamin D deficiency, unspecified, E78.5 - Hyperlipidemia, unspecified, I10 - Essential (primary) hypertension Comprehensive [place]. Panel Fast 6 Months E55.9 - Vitamin D deficiency, unspecified, E78.5 - Hyperlipidemia, unspecified, I10 - Essential (primary) hypertension TSH reflex Free T4 6 Months E55.9 - Vitamin D deficiency, unspecified, E78.5 - Hyperlipidemia, unspecified, I10 - Essential (primary) hypertension Vitamin D 25-OH Total 6 Months E55.9 - Vitamin D deficiency, unspecified, E78.5 - Hyperlipidemia, unspecified, I10 - Essential (primary) hypertension Medications: New ciprofloxacin HCl 250 mg PO BID 10 tabs 0RF
[2025-03-19 08:53] VITALS: BP 130/70; PULSE 93; RESP 17; O2SAT 95; BMI 27.6
--- OUTSIDE RECORDS SUMMARY | 2025-03-19 09:31 | XMS_ITS | Encounter Summary ---
Author Organization [facility] Address [address] [place] [address] Phone Care Team Providers Care Steam Fitter Helper Name Role Phone Pcp, Unknown Primary Care Provider Saadia Paz MD Primary Care Provider [phone] Encounter Details Date Type Department Care Team (Late st Contact Info) Description 10/02/2022 Telephone [facility] [address] [address] Jose Savage MD [address] [address] [email or web address] Social History Tobacco Use Types Packs/Day Years [...] EST Office Visit [facility] [address] [facility] 10th [place] [address] Jude Rivera MD [address] [place] [address] [email or web address] 05/09/2025 12:45 PM EST Office Visit DA [address] [address] Coco Renteria MD [address] [place] [address] [email or web address] documented as of this encounter Visit Diagnoses Not on filedocumented in this encounter Additional Health Concerns Assessment Noted Time PHQ-2 Depression Total Score: 0 02/22/20 18 9:51 AM EST documented as of this encounter Care Teams Steam Fitter Helper Relationship Specialty Start Date End Date Pcp, Unknown PCP - General 06/06/21 03/30/23 Saadia Trotter MD [address] [place] [address] PCP - General Internal Medicine 03/31/23 documented as of this encounter Additional Source Comments The information contained in this document represents components of the legal health record. It is not the complete legal health record.[facility]
--- OUTSIDE RECORDS SUMMARY | 2025-03-19 09:32 | XMS_ITS | Encounter Summary ---
Author Organization [facility] Address [address] [facility] [address] [place] [address] Phone Care Team Providers Care Visitor Services Associate Name Role Phone Saadia Trotter MD Primary Care Provider [phone] Encounter Details Date Type Department Care Team (Late st Contact Info) Description 06/21/2024 Ancillary Orders [facility] Central Scheduling [address] [place] [address] Saadia Trotter MD [facility] [place] [address] Visit for screening mammogram (Primary Dx) Social [...] Office Visit DA [facility] 243 [facility] 10th [place] [address] Jude Rivera MD [address] [place] [address] [email or web address] 05/09/2025 12:45 PM EST Office Visit DA [address] [address] Coco Renteria MD [address] [place] [address] [email or web address] documented as of this encounter Visit Diagnoses Diagnosis Visit for screening mammogram- Primary documented in this encounter Additional Health Concerns Assessment Noted Time PHQ-2 Depression Total Score: 0 02/22/20 18 9:51 AM EST documented as of this encounter Care Teams Visitor Services Associate Relationship Specialty Start Date End Date Saadia Trotter MD [address] [place] [address] PCP - General Internal Medicine 03/31/23 documented as of this encounter Additional Source Comments The information contained in this document represents components of the legal health record. It is not the complete legal health record.[facility]
--- OUTSIDE RECORDS SUMMARY | 2025-03-19 09:32 | XMS_ITS | Encounter Summary ---
Author Organization [facility] Address [facility] As Seen on TV [facility] [address] [place] [address] Phone Care Team Providers Care Assistant Boys Track Coach Name Role Phone Verenice Traore MD Primary Care Provider [phone] Pcp, Unknown Primary Care Provider Saadia Paz MD Primary Care Provider [phone] Encounter Details Date Type Department Care Team (Late st Contact Info) Description 01/11/2019 Ancillary Orders [facility] Central Scheduling [address] [place] [address] Verenice Traore MD [address] [place] [address] Visit for screening mammogram Social History Tobacco [...] Description 04/23/2025 1:15 PM EST Office Visit [facility] [place] [address] [facility] 10th [place] [address] Jude Rivera MD [address] [place] [address] [email or web address] 05/09/2025 12:45 PM EST Office Visit [address] [address] Coco Renteria MD [address] [place] [address] [email or web address] documented as of this encounter [...] as of this encounter Care Teams Assistant Boys Track Coach Relationship Specialty Start Date End Date Verenice Traore MD [address] [place] [address] PCP - General Internal Medicine 01/11/19 06/05/21 Pcp, Unknown PCP - General 06/06/21 03/30/23 Saadia Trotter MD [address] [place] [address] PCP - General Internal Medicine 03/31/23 documented as of this encounter Additional Source Comments The information contained in this document represents components of the legal health record. It is not the complete legal health record.[facility]
--- OUTSIDE RECORDS SUMMARY | 2025-03-19 09:32 | XMS_ITS | Encounter Summary ---
Author Organization [facility] Address [facility] [address] [place] [address] Phone Care Team Providers Care Stock Tracer Name Role Phone Rachael Horton MD Primary Care Provide r Verenice Traore MD Primary Care Provider [phone] Pcp, Unknown Primary Care Provider Saadia Paz MD Primary Care Provider [phone] Encounter Details Date Type Department Care Team (Late st Contact Info) Description 12/24/2016 Ancillary Orders [facility] [address] [place] [address] Rachael Horton MD [address] [place] [address] Visit for screening mammogram Social History Tobacco [...] Description 04/23/2025 1:15 PM EST Office Visit [facility] 243 [facility] 10th [place] [address] Jude Rivera MD [address] [place] [address] [email or web address] 05/09/2025 12:45 PM EST Office Visit [address] [address] Coco Renteria MD [address] [place] [address] [email or web address] documented as of this encounter Results [...] documented as of this encounter Care Teams Stock Tracer Relationship Specialty Start Date End Date Rachael Horton MD [address] [place] [address] PCP - General Geriatric Psychiatry 03/17/16 01/10/19 Verenice Traore MD [address] [place] [address] PCP - General Internal Medicine 01/11/19 06/05/21 Pcp, Unknown PCP - General 06/06/21 03/30/23 Saadia Trotter MD [address] [place] [address] PCP - General Internal Medicine 03/31/23 documented as of this encounter Additional Source Comments The information contained in this document represents components of the legal health record. It is not the complete legal health record.[facility]
--- OUTSIDE RECORDS SUMMARY | 2025-03-19 09:32 | XMS_ITS | Clinical Summary ---
Author Organization [facility] Address [address] [facility] [address] [place] [address] Phone Care Team Providers Care Engagement Executive Name Role Phone Jimbo Trotter MD Primary Care Provider [phone] Allergies Active Allergy Reactions Criticality Noted Date [...] Description 04/23/2025 1:15 PM EST Office Visit [facility] 243 [facility] 10th [place] [address] Jude Rivera MD [address] [place] [address] [email or web address] 05/09/2025 12:45 PM EST Office Visit [address] [address] Coco Renteria MD [address] [place] [address], [address] [place] [address] [email or web address] Health Maintenance Due Date Last Done Comments [...] this topic Medical Devices Implanted Type Area Manager Human Capital Device Identifier Shelf Expiration Date Model / Serial / Lot Screw Bone 1.5x3mm Matrixneuro Ti Self Drilling - [id number] Implanted:Qty: 14 on 04/04/2019 by Franco Ardon MD at [facility] [employer] Subdural Space SYNTHES [id number] 3.01 / / Graft Tissue 4.0x5.0in Duragen Plus Ultra Pure Collagen Regeneration Matrix Dural - [id number] Implanted:Qty: 1 on 04/04/2019 by Franco Ardon MD at [facility] Right: Subdural Space [employer] 12/17/2021 [id number] / / [id number] Cover Dilip 17mm Hole Cranial Matrixneuro Titanium Ultra Low Profile - [id number] Implanted:Qty: 4 on 04/04/2019 by Franco Ardon MD at [facility] Subdural Space SYNTHES .502.02 3 / / Plate 0.3mm 14x4 Hole Cranial Matrix Neuro Titanium Frame Shape Ultra Low Profile Thick - [id number] Implanted:Qty: 1 on 04/04/2019 by Franco Ardon MD at [facility] Subdural Space SYNTHES 502.06 5 / / Procedures Procedure Name Priority Date/Time Associated Diagnosis Comments COLONOSCOPY FOR RESULT ENTRY ONLY Routine 06/22/2024 10:15 AM EST BASIC METABOLIC PANEL (BMP) Routine 04/07/2019 4:46 AM EST BD DXA AXIAL (SPINE) WITH HIP Routine 12/28/2012 9:57 AM EDT HISTORICAL LAB Routine 08/26/2011 6:40 AM EDT from Last 3 Months or Most Recently Relevant to Health Maintenance Results * COLONOSCOPY FOR RESULT ENTRY ONLY (06/22/2024 10:15 AM EST) us Jose Savage MD HEALTH MAINTENANCE Final Res ult * Basic metabolic panel (04/07/2019 4:46 AM EST) SODIUM 140 136 - 145 mmol/L [facility] POTASSIUM 4.3 3.4 - 5.1 mmol/L [facility] CHLORIDE 103 98 - 107 mmol/L [facility] CO2 25 22 - 31 mmol/L [facility] BUN 11 6 - 23 mg/dL [facility] CREATININE 0.73 0.50 - 1.20 mg/dL [facility] GLUCOSE 94 70 - 100 mg/dL [facility] CALCIUM 9.7 8.8 - 10.7 mg/dL [facility] EGFR 81 >59 mL/min/1.7 3m2 [facility] Comment:If patient is black, multiply result by 1.159. Estimated glomerular filtration rate calculated using the CKD-EPI equation. ANION GAP 12 7 - 17 mmol/L [facility] Blood 04/07/2019 4:46 AM EST 04/07/2019 5:11 AM EST Boogie Kiser PA-C LAB BLOOD BKR ORDERABLES Fi nal Result Performing Organization Address City/State/[facility] Co de Phone Number [facility] [address] [place] [address] * DXA Axial (Spine With Hip) (12/28/2012 9:57 AM EDT) Anatomical Region Laterality Modality Bone Density Bone Density 12/28/2012 9:57 AM EDT Narrative 12/28/2012 9:57 AM EDT Exam Number: [id number] Report Status: Signed Type: AXIAL BONE DENSITOMETR Date/Time: 12/28/2012 09:57 Ordering Provider: JIMBO TROTTER DR, MD EXAMS: [id number] BD/AXIAL BONE DENSITOMETR HOW IS PATIENT TRANSPORTED? Isolation Precautions: Other Precautions:* REASON FOR TEST? OSTEOPENIA, COMING FROM MAMM TEST DETAIL: ADD ON - Bone Density Report (rev:[facility] [id number]) Name: DEMETRIA PEACOCK Age: 67 Sex: Female Ethnicity: White Date of : 1945 INDICATION: The patient is a postmenopausal woman with estrogen deficiency and clinical risk of osteoporosis who presents for bone densitometry evaluation. Referring Physician: DAX TROTTER TECHNIQUE: Axial bone densitometry was performed. Exam Date: December 28, 2012 Accession number: [id number] Bone Density: Region BMD T-Score Z-Score Classification [...] Signed By: ETHAN SCHAEFER MD CC: JIMBO TROTTER M.D.; NATALIE RAZO M.D. Technologist: DANGELO BEACH Transcribed Date/Time: 01/04/2013 (1044) Wholesale Representative: CAPRIA Dictated Date/Time: 01/04/2013 (1044) Procedure Note Sys, Conversion Provider Not In - 08/28/2014 Exam Number: [id number] Report Status: Signed Type: AXIAL BONE DENSITOMETR Date/Time: 12/28/2012 09:57 Ordering Provider: JIMBO TROTTER DR, MD EXAMS: [id number] BD/AXIAL BONE DENSITOMETR HOW IS PATIENT TRANSPORTED? Isolation Precautions: Other Precautions:* REASON FOR TEST? OSTEOPENIA, COMING FROM MAMM TEST DETAIL: ADD ON - Bone Density Report (rev:[facility] [id number]) Name: DEMETRIA PEACOCK Age: 67 Sex: Female Ethnicity: White Date of : 1945 INDICATION: The patient is a postmenopausal woman with estrogen deficiency and clinical risk of osteoporosis who presents for bone densitometry evaluation. Referring Physician: DAX TROTTER TECHNIQUE: Axial bone densitometry was performed. Exam Date: December 28, 2012 Accession number: [id number] Bone Density: Region BMD T-Score Z-Score Classification [...] 01/04/2013 10:44:00 AM. REPORT ELECTRONICALLY SIGNED 01/04/2013 (2306) Reported By: ETHAN SCHAEFER M.D. Signed By: ETHAN SCHAEFER MD CC: JIMBO TROTTER M.D.; NATALIE RAZO M.D. Technologist: DANGELO BEACH Transcribed Date/Time: 01/04/2013 (0167) Wholesale Representative: BIMAL Dictated Date/Time: 01/04/2013 (6775) us Conversion Provider Not In Sys IMG BD BONE DENSI TY DEXA Final Result * (ABNORMAL) Historical Lab (08/26/2011 6:40 AM EDT) .[facility] CHOLESTEROL, SERUM 213(Abnorma lly H) 140 - 200 mg/dL [facility] TRIGLYCERIDE 152(Abnorma lly H) <150 MG/DL [facility] Comment: Normal: < 150 mg/dl Borderline High: 150-199 mg/dl High: 200-499 mg/dl Very high: > or = 500 mg/dl HDL CHOLESTEROL 57 MG/DL [facility] Comment: High Risk Factor for Heart Disease: Female: <50 mg/dL Male: <40 mg/dL Low Risk Factor for Heart Disease: Female: >60 mg/dL Male: >60 mg/dL LDL CHOLESTEROL 126 <130 MG/DL [facility] Comment: ATP III Classification of LDL Cholesterol (mg/dl): < 100 Optimal 100-129 Near Optimal/Above Optimal 130-159 Borderline High 160-189 High = or > 190 Very High CHOL/HDL RATIO 3.7 <4.5 [facility] RELATIVE RISK 0.7 <0.5 - 1.0 [facility] 08/26/2011 6:40 AM EDT 08/26/2011 6:48 AM EDT us Conversion Provider Not In Sys LAB BLOOD ORDERAB LES Final Result [facility] [address] [place] [address] from Last 3 Months or Most Recently Relevant to Health Maintenance Insurance [employer] MEDICARE PPO BLUE REPLACEMENT [facility] MEDICARE PPO BLUE REPLACEMENT [facility] MEDICARE PPO [place]UE [place] [address] [place] [address] MEDICARE PPO [place]UE [place] [address] [place] [address] MEDICARE PPO [place]UE [place] [address] [place] [address] MEDICARE PPO BLUE REPLAC[place]AC[place] Advance Directives For more information, please contact: [phone] (9AM - 5PM [facility], Wednesday-Wednesday) * Full Code (Presumed) (Latest Code Status on File) Date Activated Date Inactivated Comments 04/03/2019 8:55 PM 04/07/2019 5:05 PM Care Teams Engagement Executive Relationship Specialty Start Date End Date Jimbo Trotter MD [address] [place] [address] PCP - General Internal Medicine 03/31/23 Additional Source Comments The information contained in this document represents components of the legal health record. It is not the complete legal health record.[facility]
--- OUTSIDE RECORDS SUMMARY | 2025-03-19 09:32 | XMS_ITS | Encounter Summary ---
Author Organization [facility] Address [facility] [employer] [facility] [address] [place] [address] Phone Care Team Providers Care Parts Facilitator Name Role Phone Rachael Horton MD Primary Care Provide r Verenice Traore MD Primary Care Provider [phone] Pcp, Unknown Primary Care Provider Saadia Paz MD Primary Care Provider [phone] Encounter Details Date Type Department Care Team (Late st Contact Info) Description 03/18/2016 Ancillary Orders [facility] Central Scheduling 2013 [place] [address] Rachael Horton MD 24 [place] [address] Osteopenia Social History Tobacco Use Types Packs/Day [...] PM EST Office Visit DA Oph [facility] [address] [facility] 10th [place] [address] Jude Rivera MD 243 [place] [address] [email or web address] 05/09/2025 12:45 PM EST Office Visit DA [facility] Oph [address] [address] Coco Renteria MD [address] [place] [address], [address] [address] [email or web address] Scheduled Orders Name Type Priority Associated Diagnoses Orde r Schedule DXA Monitoring Imaging Routine Osteopenia Expected: 03/18/2016, Expires: 03/18/2018 documented as of this encounter Visit Diagnoses Diagnosis Osteopenia Disorder of bone and cartilage, unspecified documented in this encounter Additional Health Concerns Infection Onset Date Last Indicated Resolved Time COVID-19 04/12/2021 04/12/2021 05/03/2021 1:21 AM EST documented as of this encounter Care Teams Parts Facilitator Relationship Specialty Start Date End Date Rachael Horton MD [address] [place] [address] PCP - General Geriatric Psychiatry 03/17/16 01/10/19 Verenice Traore MD [address] [place] [address] PCP - General Internal Medicine 01/11/19 06/05/21 Pcp, Unknown PCP - General 06/06/21 03/30/23 Saadia Trotter MD [address] [place] [address] PCP - General Internal Medicine 03/31/23 documented as of this encounter Additional Source Comments The information contained in this document represents components of the legal health record. It is not the complete legal health record.[facility]
--- OUTSIDE RECORDS SUMMARY | 2025-03-19 09:32 | XMS_ITS | Encounter Summary ---
Author Organization [facility] Address [facility] [address] [place] [address] Phone Care Team Providers Care Blender Conveyor Operator Name Role Phone Rachael Horton MD Primary Care Provide r Verenice Traore MD Primary Care Provider [phone] Pcp, Unknown Primary Care Provider Saadia Paz MD Primary Care Provider [phone] Encounter Details Date Type Department Care Team (Late st Contact Info) Description 03/18/2016 Ancillary Orders [facility]- Breast Imaging, Main [place] 2013 [place] [address] Rachael Horton MD 24 [place] [address] Screening breast examination Social History Tobacco Use [...] Description 04/23/2025 1:15 PM EST Office Visit [facility]astics Main [place] 243 [facility] 10th [place] [address] Jude Rivera MD 243 [place] [address] [email or web address] 05/09/2025 12:45 PM EST Office Visit [address] [address] Coco Renteria MD [address] [place] [address] [email or web address] documented as of this [...] documented as of this encounter Care Teams Blender Conveyor Operator Relationship Specialty Start Date End Date Rachael Horton MD [address] [place] [address] PCP - General Geriatric Psychiatry 03/17/16 01/10/19 Verenice Traore MD [address] [place] [address] PCP - General Internal Medicine 01/11/19 06/05/21 Pcp, Unknown PCP - General 06/06/21 03/30/23 Saadia Trotter MD [address] [place] [address] PCP - General Internal Medicine 03/31/23 documented as of this encounter Additional Source Comments The information contained in this document represents components of the legal health record. It is not the complete legal health record.[facility]
--- OUTSIDE RECORDS SUMMARY | 2025-03-19 09:33 | XMS_ITS | Encounter Summary ---
Author Organization [facility] Address [address] [place] [address] Phone Care Team Providers Care Dental Office Assistant Name Role Phone Saadia Trotter MD Primary Care Provider [phone] Encounter Details Date Type Department Care Team (Late st Contact Info) Description 06/21/2024 Procedure Pass [facility]- Breast Imaging- [address] [address] Social History Tobacco Use Types Packs/Day Years Used Date Smoking Tobacco: Former Cigarettes Smokeless Tobacco: Never Comments:Quit smokin04/19 Alcohol Use Standard Drinks/Week Comments Yes 0 (1 standard drink = 0.6 oz pur e alcohol) 1-2 drinks per week. Education Answer Date Recorded Are you interested in more education? Not on rtee e 08/13/2022 Are you concerned about learning? [...] PM EST Office Visit DA Oph [facility] 243 [facility] 10th [place] [address] Jude Rivera MD 243 [place] [address] [email or web address] 05/09/2025 12:45 PM EST Office Visit DA Comp Oph [address] [address] Coco Renteria MD [address] [place] [address] [email or web address] documented as of this encounter Visit Diagnoses Not on filedocumented in this encounter Additional Health Concerns Assessment Noted Time PHQ-2 Depression Total Score: 0 02/22/20 18 9:51 AM EST documented as of this encounter Care Teams Dental Office Assistant Relationship Specialty Start Date End Date Saadia Trotter MD [address] [place] [address] PCP - General Internal Medicine 03/31/23 documented as of this encounter Additional Source Comments The information contained in this document represents components of the legal health record. It is not the complete legal health record.[facility]
--- OUTSIDE RECORDS SUMMARY | 2025-03-19 09:33 | XMS_ITS | Encounter Summary ---
Author Organization [facility] Address [address] [facility] [address] [place] [address] Phone Care Team Providers Care Anthropology Professor Name Role Phone Saadia Trotter MD Primary Care Provider [phone] Rachael Horton MD Primary Care Provide r Verenice Traore MD Primary Care Provider [phone] Pcp, Unknown Primary Care Provider [facility] Saadia Trotter MD Primary Care Provider [phone] Encounter Details Date Type Department Care Team (Late st Contact Info) Description 01/14/2016 Ancillary Orders [facility] 2013 [place] [address] Saadia Trotter MD [facility] [place] [address] Screening breast examination (Primary Dx) Social History [...] 1:15 PM EST Office Visit DA Oph [facility] 243 [facility] 10th [place] [address] Jude Rivera MD 243 [place] [address] [email or web address] 05/09/2025 12:45 PM EST Office Visit DA [address] [address] Coco Renteria MD [address] [place] [address], [address] [place] [address] [email or web address] documented as of this encounter Visit Diagnoses Diagnosis Screening breast examination- Primary Other screening breast examination documented in this encounter Additional Health Concerns Infection Onset Date Last Indicated Resolved Time COVID-19 04/12/2021 04/12/2021 05/03/2021 1:21 AM EST documented as of this encounter Care Teams Anthropology Professor Relationship Specialty Start Date End Date Saadia Trotter MD [address] [place] [address] PCP - General Internal Medicine 01/14/16 03/16/16 Rachael Horton MD [address] [place] [address] PCP - General Geriatric Psychiatry 03/17/16 01/10/19 Verenice Traore MD [address] [place] [address] PCP - General Internal Medicine 01/11/19 06/05/21 Pcp, Unknown PCP - General 06/06/21 03/30/23 Saadia Trotter MD [address] [place] [address] PCP - General Internal Medicine 03/31/23 documented as of this encounter Additional Source Comments The information contained in this document represents components of the legal health record. It is not the complete legal health record.[facility]
--- OUTSIDE RECORDS SUMMARY | 2025-03-19 09:33 | XMS_ITS | Encounter Summary ---
Author Organization [facility] Address 399 [facility] [address] [place] [address] Phone Care Team Providers Care Acura Sales Consultant Name Role Phone Saadia Trotter MD Primary Care Provider [phone] Rachael Horton MD Primary Care Provide r Verenice Traore MD Primary Care Provider [phone] Pcp, Unknown Primary Care Provider [facility] Saadia Trotter MD Primary Care Provider [phone] Encounter Details Date Type Department Care Team (Late st Contact Info) Description 01/14/2016 Ancillary Orders [facility] Central Scheduling [address] [place] [address] Saadia Trotter MD [facility] [place] [address] Social History Tobacco Use Types Packs/Day Years [...] 1:15 PM EST Office Visit DA Oph [facility] 243 [facility] 10th [place] [address] Jude Rivera MD 243 [place] [address] [email or web address] 05/09/2025 12:45 PM EST Office Visit DA [address] [address] Coco Renteria MD [address] [place] [address] [email or web address] documented as of this encounter Visit Diagnoses Not on filedocumented in this encounter Additional Health Concerns Infection Onset Date Last Indicated Resolved Time COVID-19 04/12/2021 04/12/2021 05/03/2021 1:21 AM EST documented as of this encounter Care Teams Acura Sales Consultant Relationship Specialty Start Date End Date Saadia Trotter MD [address] [place] [address] PCP - General Internal Medicine 01/14/16 03/16/16 Rachael Horton MD [address] [place] [address] PCP - General Geriatric Psychiatry 03/17/16 01/10/19 Verenice Traore MD [address] [place] [address] PCP - General Internal Medicine 01/11/19 06/05/21 Pcp, Unknown PCP - General 06/06/21 03/30/23 Saadia Trotter MD [address] [place] [address] PCP - General Internal Medicine 03/31/23 documented as of this encounter Additional Source Comments The information contained in this document represents components of the legal health record. It is not the complete legal health record.[facility]
--- OUTSIDE RECORDS SUMMARY | 2025-03-19 09:33 | XMS_ITS | Encounter Summary ---
Author Organization [facility] Address [address] [facility] [address] [place] [address] Phone Care Team Providers Care Business Intelligence Engineer Name Role Phone Saadia Trotter MD Primary Care Provider [phone] Rachael Horton MD Primary Care Provide r Verenice Traore MD Primary Care Provider [phone] Pcp, Unknown Primary Care Provider [facility] Saadia Trotter MD Primary Care Provider [phone] Encounter Details Date Type Department Care Team (Late st Contact Info) Description 01/14/2016 Ancillary Orders [facility] [address] [place] [address] Saadia Trotter MD [place] [address] Osteopenia (Primary Dx) Social History Tobacco Use [...] 1:15 PM EST Office Visit [facility] 243 [facility] 10th [place] [address] Jude Rivera MD 243 [place] [address] [email or web address] 05/09/2025 12:45 PM EST Office Visit DA [address] [address] Coco Renteria MD [address] [place] [address], [address] [address] [email or web address] documented as of this encounter Visit Diagnoses Diagnosis Osteopenia- Primary Disorder of bone and cartilage, unspecified documented in this encounter Additional Health Concerns Infection Onset Date Last Indicated Resolved Time COVID-19 04/12/2021 04/12/2021 05/03/2021 1:21 AM EST documented as of this encounter Care Teams Business Intelligence Engineer Relationship Specialty Start Date End Date Saadia Trotter [place] [address] PCP - General Internal Medicine 01/14/16 03/16/16 Rachael Horton MD [address] [place] [address] PCP - General Geriatric Psychiatry 03/17/16 01/10/19 Verenice Traore MD [address] [place] [address] PCP - General Internal Medicine 01/11/19 06/05/21 Pcp, Unknown PCP - General 06/06/21 03/30/23 Saadia Trotter MD [address] [place] [address] PCP - General Internal Medicine 03/31/23 documented as of this encounter Additional Source Comments The information contained in this document represents components of the legal health record. It is not the complete legal health record.[facility]
--- OUTSIDE RECORDS SUMMARY | 2025-03-19 09:33 | XMS_ITS | Encounter Summary ---
Author Organization [facility] Address [facility] [email or web address] [facility] [address] [place] [address] Phone Care Team Providers Care Orthotic Finish Grinding Technician Name Role Phone Pcp, Unknown Primary Care Provider Saadia Paz MD Primary Care Provider [phone] Encounter Details Date Type Department Care Team (Late st Contact Info) Description 06/06/2021 Ancillary Orders [facility]- Breast Imaging, [facility] 2013 [place], [place] [id number] System, Provider Not In, [place] [address] Visit for screening mammogram Social History Tobacco [...] Description 04/23/2025 1:15 PM EST Office Visit [facility] 243 [facility] 10[address] [place] [address] Jude Rivera MD 243 [place] [address] [email or web address] 05/09/2025 12:45 PM EST Office Visit DA [place] [address] [address] Coco Renteria MD [address] [place] [address] [place] [address] [email or web address] documented as of this encounter Visit Diagnoses Diagnosis Visit for screening mammogram documented in this encounter Additional Health Concerns Assessment Noted Time PHQ-2 Depression Total Score: 0 02/22/20 18 9:51 AM EST documented as of this encounter Care Teams Orthotic Finish Grinding Technician Relationship Specialty Start Date End Date Pcp, Unknown PCP - General 06/06/21 03/30/23 Saadia Trotter MD [address] [place] [address] PCP - General Internal Medicine 03/31/23 documented as of this encounter Additional Source Comments The information contained in this document represents components of the legal health record. It is not the complete legal health record.[facility]
--- OUTSIDE RECORDS SUMMARY | 2025-03-19 09:33 | XMS_ITS | Encounter Summary ---
Author Organization [facility] Address [address] [employer] [facility] [address] [place] [address] Phone Care Team Providers Care Layer Out Plate Glass Name Role Phone Verenice Traore MD Primary Care Provider [phone] Pcp, Unknown Primary Care Provider Saadia Paz MD Primary Care Provider Encounter Details Date Type Department Care Team (Late st Contact Info) Description 02/09/2020 Procedure Pass [facility]- Breast Imaging- [address] [address] Social History Tobacco Use Types Packs/Day Years [...] Description 04/23/2025 1:15 PM EST Office Visit [address] [address] Jude Rivera MD [address] [place] [address] [email or web address] 05/09/2025 12:45 PM EST Office Visit DA [place] [address] [address] Coco Renteria MD [address] [place] [address] [email or web address] documented as of this encounter Visit Diagnoses Not on filedocumented in this encounter Additional Health Concerns Infection Onset Date Last Indicated Resolved Time COVID-19 04/12/2021 04/12/2021 05/03/2021 1:21 AM EST Assessment Noted Time PHQ-2 Depression Total Score: 0 02/22/20 18 9:51 AM EST documented as of this encounter Care Teams Layer Out Plate Glass Relationship Specialty Start Date End Date Verenice Traore MD [address] [place] [address] PCP - General Internal Medicine 01/11/19 06/05/21 Pcp, Unknown PCP - General 06/06/21 03/30/23 Saadia Trotter MD [address] [place] [address] PCP - General Internal Medicine 03/31/23 documented as of this encounter Additional Source Comments The information contained in this document represents components of the legal health record. It is not the complete legal health record.[facility]
--- OUTSIDE RECORDS SUMMARY | 2025-03-19 09:33 | XMS_ITS | Clinical Summary ---
Author Organization [facility] Address [address] [place] [address] Care Team Providers Care Hearing Therapist Name Role Phone Unavailable Primary Care Provider [...]
--- OUTSIDE RECORDS SUMMARY | 2025-03-19 09:33 | XMS_ITS | Encounter Summary ---
Author Organization [facility] Address [facility] [address] [place] [address] Phone Care Team Providers Care Manager Of Disaster Recovery Name Role Phone Rachael Horton MD Primary Care Provide r Verenice Traore MD Primary Care Provider [phone] Pcp, Unknown Primary Care Provider Saadia Paz MD Primary Care Provider [phone] Encounter Details Date Type Department Care Team (Late st Contact Info) Description 02/09/2018 Ancillary Orders Women[facility] Imaging Department [address] [place] [address] [place] [address] Visit for screening mammogram Social History Tobacco [...] PM EST Office Visit DA Oph [facility] 243 [facility] 10th [place] [address] Jude Rivera MD 243 [place] [address] [email or web address] 05/09/2025 12:45 PM EST Office Visit DA Comp Oph [address] [address] Coco Renteria MD [address] [place] [address] [email or web address] documented as of this encounter Visit Diagnoses Diagnosis Visit for screening mammogram documented in this encounter Additional Health Concerns Infection Onset Date Last Indicated Resolved Time COVID-19 04/12/2021 04/12/2021 05/03/2021 1:21 AM EST documented as of this encounter Care Teams Manager Of Disaster Recovery Relationship Specialty Start Date End Date Rachael Horton MD [address] [place] [address] PCP - General Geriatric Psychiatry 03/17/16 01/10/19 Verenice Traore MD [address] [place] [address] PCP - General Internal Medicine 01/11/19 06/05/21 Pcp, Unknown PCP - General 06/06/21 03/30/23 Saadia Trotter MD [address] [place] [address] PCP - General Internal Medicine 03/31/23 documented as of this encounter Additional Source Comments The information contained in this document represents components of the legal health record. It is not the complete legal health record.[facility]
--- OUTSIDE RECORDS SUMMARY | 2025-03-19 09:33 | XMS_ITS | Encounter Summary ---
Author Organization [facility] Address [facility] [employer] [facility] [address] [place] [address] Phone Care Team Providers Care Maintenance Of Way Clerk Name Role Phone Verenice Traore MD Primary Care Provider [phone] Pcp, Unknown Primary Care Provider Saadia Paz MD Primary Care Provider [phone] Encounter Details Date Type Department Care Team (Late st Contact Info) Description 04/04/2019 Procedure Pass [facility] Periop [address] [place] [address] Social History Tobacco Use Types Packs/Day Years [...] Description 04/23/2025 1:15 PM EST Office Visit [address] [address] Jude Rivera MD [address] [place] [address] [email or web address] 05/09/2025 12:45 PM EST Office Visit DA [place] [address] [address] Coco Renteria MD [address] [place] [address] [email or web address] documented as of this encounter Visit Diagnoses Not on filedocumented in this encounter Additional Health Concerns Infection Onset Date Last Indicated Resolved Time COVID-19 04/12/2021 04/12/2021 05/03/2021 1:21 AM EST Assessment Noted Time PHQ-2 Depression Total Score: 0 02/22/20 18 9:51 AM EST documented as of this encounter Care Teams Maintenance Of Way Clerk Relationship Specialty Start Date End Date Verenice Traore MD [address] [place] [address] PCP - General Internal Medicine 01/11/19 06/05/21 Pcp, Unknown PCP - General 06/06/21 03/30/23 Saadia Trotter MD [address] [place] [address] PCP - General Internal Medicine 03/31/23 documented as of this encounter Additional Source Comments The information contained in this document represents components of the legal health record. It is not the complete legal health record.[facility]
--- OUTSIDE RECORDS SUMMARY | 2025-03-19 09:33 | XMS_ITS | Encounter Summary ---
Author Organization [facility] Address [address] [facility] [address] [place] [address] Phone Care Team Providers Care Laborer Car Barn Name Role Phone Saadia Trotter MD Primary Care Provider [phone] Encounter Details Date Type Department Care Team (Late st Contact Info) Description 08/23/2024 Ancillary Orders [facility] Central Scheduling [address] [place] [address] Saadia Trotter MD [facility] [place] [address] Visit for screening mammogram (Primary Dx) Social [...] Office Visit [facility] 243 [facility] 10th [place] [address] Jude Rivera MD [address] [place] [address] [email or web address] 05/09/2025 12:45 PM EST Office Visit [address] [address] Coco Renteria MD [address] [place] [address] [email or web address] documented as of this encounter Results [...] documented as of this encounter Care Teams Laborer Car Barn Relationship Specialty Start Date End Date Saadia Trotter MD [address] [place] [address] PCP - General Internal Medicine 03/31/23 documented as of this encounter Additional Source Comments The information contained in this document represents components of the legal health record. It is not the complete legal health record.[facility]
--- OUTSIDE RECORDS SUMMARY | 2025-03-19 09:33 | XMS_ITS | Encounter Summary ---
Author Organization [facility] Address [address] [facility] [address] [place] [address] Phone Care Team Providers Care Literacy Coordinator Name Role Phone Verenice Traore MD Primary Care Provider [phone] Pcp, Unknown Primary Care Provider Saadia Paz MD Primary Care Provider [phone] Encounter Details Date Type Department Care Team (Late st Contact Info) Description 02/09/2020 Procedure [facility]- Breast Imaging- [address] [address] Social History Tobacco Use Types Packs/Day Years [...] Description 04/23/2025 1:15 PM EST Office Visit [address] [address] Jude Rivera MD [address] [place] [address] [email or web address] 05/09/2025 12:45 PM EST Office Visit DA Lugo [address] [address] Coco Renteria MD [address] [place] [address] [email or web address] documented as of this encounter Visit Diagnoses Not on filedocumented in this encounter Additional Health Concerns Infection Onset Date Last Indicated Resolved Time COVID-19 04/12/2021 04/12/2021 05/03/2021 1:21 AM EST Assessment Noted Time PHQ-2 Depression Total Score: 0 02/22/20 18 9:51 AM EST documented as of this encounter Care Teams Literacy Coordinator Relationship Specialty Start Date End Date Verenice Traore MD [address] [place] [address] PCP - General Internal Medicine 01/11/19 06/05/21 Pcp, Unknown PCP - General 06/06/21 03/30/23 Saadia Trotter MD [address] [place] [address] PCP - General Internal Medicine 03/31/23 documented as of this encounter Additional Source Comments The information contained in this document represents components of the legal health record. It is not the complete legal health record.[facility]
--- OUTSIDE RECORDS SUMMARY | 2025-03-19 09:33 | XMS_ITS | Encounter Summary ---
Author Organization [facility] Address [address] [facility] [address] [place] [phone] Phone Care Team Providers Care Comb Capper Name Role Phone Pcp, Unknown Primary Care Provider Saadia Paz MD Primary Care Provider [phone] Encounter Details Date Type Department Care Team (Late st Contact Info) Description 06/07/2021 Ancillary Orders [facility]- Breast Imaging, [facility] [address] [place] [address] Saadia Trotter MD [facility] [place], [place] [id number] Visit for screening mammogram Social History Tobacco [...] Description 04/23/2025 1:15 PM EST Office Visit [facility] [address] [facility] 10th [place] [address] Jude Rivera MD [address] [place] [address] [email or web address] 05/09/2025 12:45 PM EST Office Visit [address] [address] Coco Renteria MD [address] [place] [address] [email or web address] documented as of this encounter Results * [...] documented as of this encounter Care Teams Comb Capper Relationship Specialty Start Date End Date Pcp, Unknown PCP - General 06/06/21 03/30/23 Saadia Trotter MD [address] [place] [address] PCP - General Internal Medicine 03/31/23 documented as of this encounter Additional Source Comments The information contained in this document represents components of the legal health record. It is not the complete legal health record.[facility]
--- OUTSIDE RECORDS SUMMARY | 2025-03-19 09:33 | XMS_ITS | Encounter Summary ---
Author Organization [facility] Address [facility] [employer] [facility] [address] [place] [address] Phone Care Team Providers Care Gym Teacher Name Role Phone Rachael Horton MD Primary Care Provide r Verenice Traore MD Primary Care Provider [phone] Pcp, Unknown Primary Care Provider Saadia Paz MD Primary Care Provider [phone] Encounter Details Date Type Department Care Team (Late st Contact Info) Description 03/18/2016 Ancillary Orders [facility]- Breast Imaging, Main Lead [address] [place] [address] Rachael Horton MD [address] [place] [address] Screening breast examination Social History Tobacco Use [...] 1:15 PM EST Office Visit [facility] 243 [facility] 10th [place] [address] Jude Rivera MD [address] [place] [address] [email or web address] 05/09/2025 12:45 PM EST Office Visit [facility] Comp [address] [address] Coco Renteria MD [address] [place] [address] [email or web address] documented as of this encounter Visit Diagnoses Diagnosis Screening breast examination Other screening breast examination documented in this encounter Additional Health Concerns Infection Onset Date Last Indicated Resolved Time COVID-19 04/12/2021 04/12/2021 05/03/2021 1:21 AM EST documented as of this encounter Care Teams Gym Teacher Relationship Specialty Start Date End Date Rachael Horton MD [address] [place] [address] PCP - General Geriatric Psychiatry 03/17/16 01/10/19 Verenice Traore MD [address] [place] [address] PCP - General Internal Medicine 01/11/19 06/05/21 Pcp, Unknown PCP - General 06/06/21 03/30/23 Saadia Trotter MD [address] [place] [address] PCP - General Internal Medicine 03/31/23 documented as of this encounter Additional Source Comments The information contained in this document represents components of the legal health record. It is not the complete legal health record.[facility]
--- OUTSIDE RECORDS SUMMARY | 2025-03-19 09:33 | XMS_ITS | Encounter Summary ---
Author Organization [facility] Address [facility] [email or web address] [facility] [address] [place] [address] Phone Care Team Providers Care Dental Assisting Instructor Name Role Phone Rachael Horton MD Primary Care Provide r Verenice Traore MD Primary Care Provider [phone] Pcp, Unknown Primary Care Provider Saadia Paz MD Primary Care Provider [phone] Encounter Details Date Type Department Care Team (Late st Contact Info) Description 03/22/2018 Ancillary Orders [facility] [address] [place] [address] Rachael Horton MD [address] [place] [address] Visit for screening mammogram Social History Tobacco [...] Description 04/23/2025 1:15 PM EST Office Visit [facility] 243 [facility] 10th [place] [address] Jude Rivera MD [address] [place] [address] [email or web address] 05/09/2025 12:45 PM EST Office Visit [address] [address] Coco Renteria MD [address] [place] [address] [email or web address] documented as of this encounter Results [...] CAD (RIGHT) [place]ographic [place] [address]. Examination is performed with digital mammography and [...] CAD (RIGHT) Mammographic imaging was performed at [facility], [address] [place] [address], [place] [address]. Examination is performed with digital mammography and [...] as of this encounter Care Teams Dental Assisting Instructor Relationship Specialty Start Date End Date Rachael Horton MD [address] [place] [address] PCP - General Geriatric Psychiatry 03/17/16 01/10/19 Verenice Traore MD [address] [place] [address] PCP - General Internal Medicine 01/11/19 06/05/21 Pcp, Unknown PCP - General 06/06/21 03/30/23 Saadia Trotter MD [address] [place] [address] PCP - General Internal Medicine 03/31/23 documented as of this encounter Additional Source Comments The information contained in this document represents components of the legal health record. It is not the complete legal health record.[facility]
--- OUTSIDE RECORDS SUMMARY | 2025-03-19 09:33 | XMS_ITS | Encounter Summary ---
Author Organization [facility] Address [facility] [employer] [facility] [address] [place] [address] Phone Care Team Providers Care Surgical Rn Name Role Phone Verenice Traore MD Primary Care Provider [phone] Pcp, Unknown Primary Care Provider Saadia Paz MD Primary Care Provider [phone] Encounter Details Date Type Department Care Team (Late st Contact Info) Description 02/09/2020 Ancillary Orders [facility] Scheduling [address] [place] [address] Verenice Traore MD [address] [place] [address] Visit for screening mammogram Social History Tobacco [...] Office Visit [facility] 243 [facility] 10th [place] [address] Jude Rivera MD [address] [place] [address] [email or web address] 05/09/2025 12:45 PM EST Office Visit [address] [address] Coco Renteria MD [address] [place] [address] [email or web address] documented as of this [...] documented as of this encounter Care Teams Surgical Rn Relationship Specialty Start Date End Date Verenice Traore MD [address] [place] [address] PCP - General Internal Medicine 01/11/19 06/05/21 Pcp, Unknown PCP - General 06/06/21 03/30/23 Saadia Trotter MD [address] [place] [address] PCP - General Internal Medicine 03/31/23 documented as of this encounter Additional Source Comments The information contained in this document represents components of the legal health record. It is not the complete legal health record.[facility]
--- OUTSIDE RECORDS SUMMARY | 2025-03-19 09:33 | XMS_ITS | Encounter Summary ---
Author Organization [facility] Address [facility] [address] [place] [address] Phone Care Team Providers Care Manager Manufacturing Name Role Phone Rachael Horton MD Primary Care Provide r Verenice Traore MD Primary Care Provider [phone] Pcp, Unknown Primary Care Provider Saadia Paz MD Primary Care Provider [phone] Reason for Referral * Physical Therapy (Routine) - Closed Specialty Diagnoses / Procedures Referred By Maurice chiu Referred To Contact Physical Therapy Diagnoses Encounter for rehabilitation Victoria Nelson MD, [place] Phone: tel: fax: mailto:[email or web address] [address] [place] [address] Phone: tel: Referral ID Status Reason Start Date Expiration Date Visits Re quested Visits Authorized [id number] Closed 03/14/2018 03/14/2019 1 1 Encounter Details Date Type Department Care Team (Latest Contact Info) Description 03/14/2018 Transcribe Orders [facility] [address] [place] [address] Victoria Nelson MD, [place] [address] [facility], [address] Department of Obstetric[place] [address] [email or web address] Encounter for rehabilitation (Primary Dx) Social [...] Description 04/23/2025 1:15 PM EST Office Visit [facility] [address] [facility] 10th [place] [address] Jude Rivera MD [address] [place] [address] [email or web address] 05/09/2025 12:45 PM EST Office Visit [address] [address] Coco Renteria MD [address] [place] [address] [email or web address] Scheduled Referrals Name Type Priority Associated Diagnoses Orde r Schedule Ambulatory referral to [facility] Physical Therapy Outpatient Referral Routine Encounter for rehabilitation Ordered: 03/14/2018 documented as of this encounter Visit Diagnoses Diagnosis Encounter for rehabilitation- Primary documented in this encounter Additional Health Concerns Infection Onset Date Last Indicated Resolved Time COVID-19 04/12/2021 04/12/2021 05/03/2021 1:21 AM EST Assessment Noted Time PHQ-2 Depression Total Score: 0 02/22/20 9:51 AM EST documented as of this encounter Care Teams Manager Manufacturing Relationship Specialty Start Date End Date Rachael Horton MD [address] [place] [address] PCP - General Geriatric Psychiatry 03/17/16 01/10/19 Verenice Traore MD [address] [place] [address] PCP - General Internal Medicine 01/11/19 06/05/21 Pcp, Unknown PCP - General 06/06/21 03/30/23 Saadia Trotter MD [address] [place] [address] PCP - General Internal Medicine 03/31/23 documented as of this encounter Additional Source Comments The information contained in this document represents components of the legal health record. It is not the complete legal health record.[facility]
== END 2025-03-19 16:33 | disposition home or self-care (01) ==
LOC: HO.HMCC 08:45
PROVIDERS: PCP Internal Medicine; Visit Provider Internal Medicine
DX: I10 Essential (primary) hypertension (principal); E78.5 Hyperlipidemia, unspecified; D69.6 Thrombocytopenia, unspecified; J44.9 Chronic obstructive pulmonary disease, unspecified; R19.8 Other specified symptoms and signs involving the digestive system and abdomen

== ENCOUNTER → 2025-03-19 08:44 | Outpatient (BNVA) | payer MEDICARE, SELFPAY | PROVIDERS: PCP Internal Medicine; Visit Provider Internal Medicine | DX: I10 Essential (primary) hypertension (principal); E78.5 Hyperlipidemia, unspecified; D69.6 Thrombocytopenia, unspecified; J44.9 Chronic obstructive pulmonary disease, unspecified; R19.8 Other specified symptoms and signs involving the digestive system and abdomen | CPT/HCPCS: 99212 ==